=== PATIENT | male | born 1940 | race Caucasian/White ===

== ENCOUNTER 2021-10-14 12:44 | Inpatient (IN) | payer MEDICARE, MEDICAID, SELFPAY ==
[2021-10-14] VITALS (11 sets, daily range): BP systolic 111–146; BP diastolic 40–81; PULSE 45–96; RESP 18–37; TEMP 37.9–39.8; O2SAT 95–99; BMI 25.0
--- NOTE | ~2021-10-14 | XR_ITS ---
EXAMINATION: XR HIP, RIGHT CLINICAL INFORMATION: Atraumatic hip pain. Fever. COMPARISON: Radiographs of the right hip done on 02/12/2016. TECHNIQUE: Single frontal view of the pelvis and 2 views of the right hip were obtained. FINDINGS: Pelvis: The bony alignments are intact. The cortices are intact. Well-corticated thickened bony cortex is noted at the left anterior superior iliac spine, likely represent old posttraumatic change. Right hip: Bony alignments are intact. The cortices are intact. The joint space appear relatively well-maintained. Mild subchondral sclerosis consistent with mild osteoarthrosis is present. No significant change since 2016. XR/XR hip RT w PEL1V IMPRESSION: No radiographic evidence of any acute osseous or articular abnormalities identified. Mild osteoarthrosis of the right hip, unchanged.
--- NOTE | ~2021-10-14 | CT_ITS ---
EXAMINATION: CT ABDOMEN AND PELVIS WITH CONTRAST. CT right hip CLINICAL INFORMATION: Fever of unknown origin COMPARISON: None TECHNIQUE: 5 mm thin axial and reformatted 3 mm thin sagittal and coronal images of abdomen and pelvis were obtained following IV 85 mL Omnipaque 350. Subsequently axial 2 mm thin and reformatted 1 mm thin sagittal coronal images of right hip were obtained. DLP 263 FINDINGS: Abdomen: The lung bases are clear. The heart size is normal. The liver is normal size, shape and density. There are small hypodense 1 cm lesion right hepatic lobe axial image 20/3 and slightly larger hypodense 1.3 cm lesion on axial image 19/3. No enhancing lesion seen. There is no intrahepatic ductal dilatation. The gallbladder is distended with no radiopaque calculi. There is punctate hyperdensity along the medial gallbladder wall question calcification on axial image 23/3.. A 1.4 cm lesion is seen in the spleen rest of the spleen is unremarkable. Visualized pancreas is atrophic with mild fat stranding along the tail of the pancreas extending to the paracolic gutter, suspicious for pancreatitis. Bilateral adrenal glands are symmetric and normal. Both kidneys are normal size, lobulated with mild perinephric stranding. There are bilateral renal cysts. No radiopaque renal calculi or hydronephrosis seen. Abdominal aorta is normal caliber. No abnormal size retroperitoneal lymph nodes seen. There is scattered stool, gas seen throughout mildly prominent:. The small bowel loops are normal caliber. The stomach is nondistended. Appendix is normal caliber. No free air or free fluid seen. Abdominal wall appears unremarkable Imaging through the pelvis reveals mildly enlarged prostate gland extending the base of bladder. There is nondistended urinary bladder with mild bladder wall thickening. No abnormal pelvic or inguinal lymph nodes seen. There is a rectal probe visualized. There are mild degenerative disc changes L5-S1 disc level with moderate ventral spondylosis L2-L3 through L5-S1 disc level. No lytic or sclerotic process seen. Right hip: There is mild reduction bilateral hip joint space with mild subchondral cystic changes along the lateral acetabulum. No bony erosive changes seen. There are small enthesophytes along the greater trochanter. No fracture, dislocation or bony erosive changes. Mild inferior right hip joint spurring is seen. Mild osteopenia. CT/CT abdomen pelvis w con IMPRESSION: Suspect acute pancreatitis tail of the pancreas with minimal peripancreatic fat stranding and likely small fluid collection. Punctate gallbladder wall calcification but no gallstones or wall thickening seen. Bilateral renal cysts. Bilateral hypodense lesions in the liver and spleen, likely small cysts. The liver lesions were seen on previous CT abdomen exam 02/12/2016. There is no acute fracture involving either hip joints on the pelvic bones. Mild osteopenia and subchondral cystic changes along the right acetabulum and lateral femoral head. Degenerative enthesophytes along the greater trochanter and inferior right hip joint. Mild degenerative disc changes L5-S1 disc level with ventral spondylosis lower dorsal and lumbar spine.
--- NOTE | ~2021-10-14 | XR_ITS ---
EXAMINATION: XR CHEST CLINICAL INFORMATION: Fever COMPARISON: Chest 02/19/2017 TECHNIQUE: Frontal view of the chest was obtained. FINDINGS: The lungs are well-expanded and clear of acute process. The heart size and pulmonary vascularity is normal. There is new left central venous port with its tip in proximal SVC. There is mild spondylosis dorsal spine. XR/XR chest 1V IMPRESSION: Clear chest. Left central venous port tip in satisfactory position.
--- NOTE | ~2021-10-14 | CT_ITS ---
EXAMINATION: CT HEAD WITHOUT CONTRAST CLINICAL INFORMATION: Fall, right-sided head swelling COMPARISON: 11/11/2012 TECHNIQUE: Contiguous axial imaging was performed from the skull base to vertex without intravenous administration of contrast. This CT examination was performed using dose optimization techniques as appropriate, variously including the following: *Automated exposure control *Adjustment of mA and/or kV according to patient size (this includes techniques or standardized protocols for targeted exams where dose is matched to indication/reason for exam; i.e. extremities or head) *Use of iterative reconstruction technique DLP: 741 mGy-cm FINDINGS: There is no evidence of acute intracranial hemorrhage or territorial infarction. No abnormal mass effect or midline shift is seen. Mosley to white matter differentiation is well preserved. No extra-axial fluid collections are identified. The ventricles are normal in size. There is mild periventricular white matter hypoattenuation consistent with chronic small vessel ischemic disease. Mild volume loss is noted. Redemonstrated hypoattenuating focus in the left basal ganglia suspicious for chronic lacunar infarct. There is right frontal scalp soft tissue swelling. No acute fracture is seen. The mastoid air cells and visualized portions of the paranasal sinuses are well aerated. CT/CT head/brain wo con IMPRESSION: No acute intracranial findings. Right frontal scalp soft tissue swelling.
--- NOTE | ~2021-10-14 | IR_ITS ---
EXAMINATION: IR REMOVAL OF PORT CATHETER CLINICAL INFORMATION: Diffuse sepsis COMPARISON: None TECHNIQUE: Following explaining removal of portacatheter I procedure, benefits and risk, a written consent was obtained. The area of left upper chest wall was cleaned and draped in the usual sterile manner. 1% lidocaine was injected at the skin incision site. A small skin incision was performed. 1 dissection was performed around the port chamber and the proximal catheter to port attachment. 2 sutures are identified and removed. After blunt dissection of the chamber and the chamber being free, the entire portacatheter was pulled out. The hemorrhage was minimal. 3-0 absorbable sutures were placed into the subcutaneous deep soft tissues and incision was pulled together. A Dermabond was then applied over the incision site and sterile dressing applied postprocedure. Patient tolerated the procedure extremely well. Conscious sedation was utilized during the exam with patient monitored by IR nursing and radiologist for 34 minutes. FINDINGS: A single image was obtained prior to the removal and revealed a tunneled left Port-A-Cath with its tip in mid to distal SVC. Approximately 28 cm long tunneled port catheter was removed. Postprocedure fluoroscopy revealed no residual or remnant Port-A-Cath. IR/IR cvc remove tunnel w prt/purchasing engineer IMPRESSION: Successful removal of left tunneled portacatheter due to diffuse bacteremia. FLUOROSCOPY TIME: 0.4 minutes. DOSE AREA PRODUCT: 58 cGy
--- NOTE | 2021-10-14 13:10 | ECG_ITS ---
Test Reason : FEVER Blood Pressure : / mmHG Vent. Rate : 083 BPM Atrial Rate : 093 BPM P-R Int : 310 ms QRS Dur : 092 ms QT Int : 390 ms P-R-T Axes : 048 -42 041 degrees QTc Int : 458 ms Sinus rhythm with 1st degree A-V block with frequent Premature ventricular complexes Left axis deviation Abnormal ECG No previous ECGs available Referred By: Pat Hernandez Electronically Signed By:Jason Hilton
[2021-10-14] MEDS: Acetaminophen 325 MG TABLET 650 MG PO ×3 (13:41→22:09)
[2021-10-14] MEDS: Acetaminophen 325 MG TABLET PO (13:41)
[2021-10-14] MEDS: 0.9 % Sodium Chloride 1,000 ML 999 ML IV ×2 (13:41→18:47)
[2021-10-14 13:42] LABS: MANUAL DIFF FLAG NO
[2021-10-14 13:44] LABS: Basophils Percent Auto 0.2 % (0-2); Hematocrit 34.2 % (42.0-52.0); Hemoglobin 11.5 g/dl (14.0-18.0); Imm Gran Pct Auto 0.8 % (0.0-0.4); Lymphocytes Absolute Auto 0.3 X10*3/uL (1.2-4.9); Mean Corpuscular HGB Conc 33.6 g/dl (31.0-36.0); Mean Platelet Volume 9.2 fL (9.4-12.4); Monocytes Absolute Auto 0.9 X10*3/uL (0.1-1.2); Monocytes Percent Auto 6.7 % (2-11); Neutrophils Absolute Auto 11.8 x10*3/uL (2.0-8.3); Neutrophils Percent Auto 90.3 % (45-73); Red Blood Count 3.49 X10*6/uL (4.60-5.80); Red Cell Distribution Width 12.9 % (11.0-16.0); SCAN SMEAR FLAG 1; White Blood Count 13.1 X10*3/uL (4.8-10.8)
[2021-10-14 13:45] LABS: Platelet Count 91 X10*3/uL (160-400)
--- NOTE | 2021-10-14 13:45 | ED_ITS ---
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 intake. Noted to be febrile during triage. Denies known fever, chills, CP/SOB, cough, abdominal pain, nausea/vomiting, pedal edema, numbness, tingling, weakness Onset (ago): day(s) Related Data Home Medications Medication Instructions Recorded Confirmed apixaban 2.5 mg tablet (Eliquis) 1 tab PO BID 10/14/21 10/14/21 hydroxyzine HCl 10 mg tablet 10 mg PO QID 10/14/21 10/14/21 Allergies Allergy/AdvReac Type Severity Reaction Status Date / Time No Known Allergies Allergy Verified 10/14/21 12:58 [No Known Allergies*] Review of Systems Review of Systems: Constitutional: +Fever, No Chills, No Fatigue, No Malaise, +anorexia ENT/Mouth: No Hearing loss, No Ear Pain, No sore throat, No Rhinorrhea Eyes: No Eye Pain, No Swelling, No Redness, No Discharge Cardiovascular: No Chest Pain, No SOB, No Edema, No Palpitations Respiratory: No Cough, No Sputum, No Dyspnea Gastrointestinal: No Nausea, No Vomiting, No Diarrhea, No Constipation, No Abdominal pain Genitourinary: No Dysuria, No Urinary Frequency, No Urgency, No Flank Pain, No Urinary Flow Changes Musculoskeletal: + joint pain, No Myalgias, No Joint Swelling Skin: No Skin Lesions, No rash Neuro: No Weakness, No Numbness, No Paresthesias, No Loss of Consciousness, No Dizziness, No Headache Yes all other systems are reviewed and are negative [facility] Past Medical History Attestation statement: The following information was validated with the patient. Medical History (Updated 10/14/21 @ 17:50 by Yunier Crawford MD) Deep vein thrombosis, upper right extremity Throat cancer Family History Family History (Updated 10/14/21 @ 17:49 by Yunier Crawford MD) Father CAD (coronary artery disease) Mother CAD (coronary artery disease) Social History Social History Alcohol intake: never Patient Tobacco Use Status: Never used Tobacco Use of substances other than those prescribed or required for medical reasons: No Advance Directives: No Advance Directives Information Provided: No Physical Exam Vital Signs: Vital Signs: Last Vital Signs Temp 100.8 F H 10/14/21 17:39 Pulse 83 10/14/21 17:39 Resp 18 10/14/21 17:39 BP 133/40 L 10/14/21 17:39 Pulse Ox 98 10/14/21 17:39 BMI result Body Mass Index 25.0 Const: General: cooperative Orientation/consciousness: patient oriented x3 Limitations: no limitations HENMT: Head: Yes normal to inspection Ears: hearing grossly normal bilaterally General nose exam: Normal external nose present Face and sinus: Yes normal facial exam Eyes: General: appearance normal, both eyes and all related structures EOM: EOMs intact bilaterally Neck: Neck: Yes normal visual inspection and Yes no meningeal signs Resp: Effort & Inspection: normal respiratory effort Auscultation: clear to auscultation bilaterally, no rales, no rhonchi and no wheezes Cardio: Rate: regular rate Heart sounds: S1 normal heart sound present and S2 normal heart sound present Peripheral pulses: dorsalis pedis present GI: Inspection: Yes normal to inspection Palpation (GI): Soft to palpation, nontender, no guarding and not rigid Skin: Rashes: no rashes Wounds: no wounds Neuro: General: patient oriented x3, tone normal, moves all extremities, no m eningeal signs and no focal motor deficits Extrem: Other: Right hip without deformity. No erythema, no swelling, no ecchymosis. NV intact distally. Nontender to palpation. Pain elicited with ROM/ROM limited secondary to pain General: Yes normal to inspection Course Course Course Narrative: -1436--leukocytosis of 13.1 (no priors to compare > likely very elevated for patient being immunocompromised and 90% neutrophils). Magnesium low 1.4 > 2g IV repletion ordered. CRP elevated to 27.65 -COVID-19 negative XR chest 1V IMPRESSION: Clear chest. Left central venous port tip in satisfactory position. -1515--UA with multiple RBCs. Not infected XR hip RT w PEL1V IMPRESSION: No radiographic evidence of any acute osseous or articular abnormalities identified. Mild osteoarthrosis of the right hip, unchanged. --patient persistently febrile, ice packs placed -1740--CT abdomen pelvis w con/CT hip RT wo con IMPRESSION: Suspect acute pancreatitis tail of the pancreas with minimal peripancreatic fat stranding and likely small fluid collection. ? Punctate gallbladder wall calcification but no gallstones or wall thickening seen. ? Bilateral renal cysts. ? Bilateral hypodense lesions in the liver and spleen, likely small cysts. The liver lesions were seen on previous CT abdomen exam 02/12/2016. ? There is no acute fracture involving either hip joints on the pelvic bones. Mild osteopenia and subchondral cystic changes along the right acetabulum and lateral femoral head. Degenerative enthesophytes along the greater trochanter and inferior right hip joint. Mild degenerative disc changes L5-S1 disc level with ventral spondylosis lower dorsal and lumbar spine. >> results discussed with patient. 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 intake. On exam febrile 100.3 rectally, tachypneic likely from fever, physical exam as above. Concern for occult fracture vs ?Septic joint/arthritis vs viral syndrome/COVID- 19. Rule out other infectious/metabolic etiologies Plan: EKG, labs, UA, CXR, hip/pelvic X x-ray, lactic/blood cultures, empiric IV antibiotics Medical Records Medical records reviewed: Yes I reviewed the patient's medical records. Lab Data Lab results reviewed: Yes I reviewed the patient's lab results. Result diagrams: 10/14/21 13:36 10/14/21 13:36 Labs: Lab Results 10/14/21 10/14/21 10/14/21 Range/Units 13:36 13:36 13:36 WBC 13.1 H (4.8-10.8) X10*3/uL RBC 3.49 L (4.60-5.80) X10*6/uL Hgb 11.5 L (14.0-18.0) g/dl Hct 34.2 L (42.0-52.0) % MCV 98.0 (80.0-98.0) fL MCH 33.0 (27.0-33.0) pg MCHC 33.6 (31.0-36.0) g/dl RDW 12.9 (11.0-16.0) % Plt Count 91 L (160-400) X10*3/uL MPV 9.2 L (9.4-12.4) fL Immature Gran % (Auto) 0.8 H (0.0-0.4) % Neut % (Auto) 90.3 H (45-73) % Lymph % (Auto) 2.0 L (20-40) % [place] % (Auto) 6.7 (2-11) % Eos % (Auto) 0.0 (0-4) % Baso % (Auto) 0.2 (0-2) % Lymph # (Auto) 0.3 L (1.2-4.9) X10*3/uL [place] # (Auto) 0.9 (0.1-1.2) X10*3/uL Eos # (Auto) 0.0 (0.0-0.4) X10*3/uL Baso # (Auto) 0.0 (0.0-0.2) X10*3/uL Abs Immat Gran (auto) 0.10 H (0.00-0.03) X10*3/uL Absolute Neuts (auto) 11.8 H (2.0-8.3) x10*3/uL Absolute Nucleated RBC 0.000 (0.0-0.012) X10*3/uL Nucleated RBC % (auto) 0.0 (0.0-0.2) /100WBC ESR 51 H (0-15) MM/HR Sodium 138 (135-145) mmol/L Potassium 3.5 (3.3-5.1) mmol/L Chloride 106 (96-108) mmol/L Carbon Dioxide 22 (22-29) mmol/L Anion Gap 14 (12-20) BUN 14 (9-16) mg/dL Creatinine 0.95 (0.5-1.4) mg/dL Estim Creat Clear Calc 62.7 Estimated GFR > 60 Random Glucose 117 H (60-115) mg/dL Lactic Acid (0.5-2.0) mmol/L Calcium 8.1 L (8.4-10.2) mg/dL Magnesium 1.4 L* (1.6-2.6) mg/dL Total Bilirubin 0.9 (0.0-1.0) mg/dL Direct Bilirubin 0.4 (0.0-0.5) mg/dL AST 15 (5-37) U/L ALT 10 (0-40) U/L Alkaline Phosphatase 53 (39-117) U/L C-Reactive Protein 27.65 H (< or = 0.50) mg/dL Total Protein 6.3 L (6.5-8.0) g/dL Albumin 3.3 L (3.5-5.0) g/dL Lipase 8 (8-78) U/L Urine Color Urine Appearance Urine pH (5.0-8.0) Ur Specific [place] (1.005-1.025) Urine Protein (NEG-TRACE) MG/DL Urine Glucose (UA) (NEG) MG/DL Urine Ketones (NEG) MG/DL Urine Blood (NEG) Urine Nitrite (NEG) Ur Leukocyte Esterase (NEG) Urine RBC (0) /HPF Urine WBC (0-4) /HPF Ur Squamous Epith Cells /LPF Urine Bacteria /LPF COVID-19 (OBEY) (Negative) COVID-19 Clin Com 10/14/21 10/14/21 10/14/21 Range/Units 13:36 13:36 14:17 WBC (4.8-10.8) X10*3/uL RBC (4.60-5.80) X10*6/uL Hgb (14.0-18.0) g/dl Hct (42.0-52.0) % MCV (80.0-98.0) fL MCH (27.0-33.0) pg MCHC (31.0-36.0) g/dl RDW (11.0-16.0) % Plt Count (160-400) X10*3/uL MPV (9.4-12.4) fL Immature Gran % (Auto) (0.0-0.4) % Neut % (Auto) (45-73) % Lymph % (Auto) (20-40) % [place] % (Auto) (2-11) % Eos % (Auto) (0-4) % Baso % (Auto) (0-2) % Lymph # (Auto) (1.2-4.9) X10*3/uL [place] # (Auto) (0.1-1.2) X10*3/uL Eos # (Auto) (0.0-0.4) X10*3/uL Baso # (Auto) (0.0-0.2) X10*3/uL Abs Immat Gran (auto) (0.00-0.03) X10*3/uL Absolute Neuts (auto) (2.0-8.3) x10*3/uL Absolute Nucleated RBC (0.0-0.012) X10*3/uL Nucleated RBC % (auto) (0.0-0.2) /100WBC ESR (0-15) MM/HR Sodium (135-145) mmol/L Potassium (3.3-5.1) mmol/L Chloride (96-108) mmol/L Carbon Dioxide (22-29) mmol/L Anion Gap (12-20) BUN (9-16) mg/dL Creatinine (0.5-1.4) mg/dL Estim Creat Clear Calc Estimated GFR Random Glucose (60-115) mg/dL Lactic Acid 0.8 (0.5-2.0) mmol/L Calcium (8.4-10.2) mg/dL Magnesium (1.6-2.6) mg/dL Total Bilirubin (0.0-1.0) mg/dL Direct Bilirubin (0.0-0.5) mg/dL AST (5-37) U/L ALT (0-40) U/L Alkaline Phosphatase (39-117) U/L C-Reactive Protein (< or = 0.50) mg/dL Total Protein (6.5-8.0) g/dL Albumin (3.5-5.0) g/dL Lipase (8-78) U/L Urine Color YELLOW Urine Appearance HAZY Urine pH 5.5 (5.0-8.0) Ur Specific [place] >= 1.030 H (1.005-1.025) Urine Protein 2+ H (NEG-TRACE) MG/DL Urine Glucose (UA) NEG (NEG) MG/DL Urine Ketones 15 (NEG) MG/DL Urine Blood 2+ H (NEG) Urine Nitrite NEG (NEG) Ur Leukocyte Esterase NEG (NEG) Urine RBC 15-29 H (0) /HPF Urine WBC 0-2 (0-4) /HPF Ur Squamous Epith Cells TRACE /LPF Urine Bacteria TRACE /LPF COVID-19 (OBEY) Negative (Negative) COVID-19 Clin Com See Note ECG Data Attestation: I personally reviewed and interpreted this ECG as follows: Prior ECG tracings: not available for review Interpretation: EKG sinus rhythm with first-degree AV block with frequent PVCs. Rate of 83. Left axis deviation. No previous to compare. no stemi Critical Care Time Critical Care Time Critical Care Time: Yes Total Critical Care Time: 50 Attestation: I have personally provided critical care time exclusive of time spent on separately billable procedures. Time includes review of lab data, radiology results, discussion with consultants, and monitoring for potential decompensation. Intervention performed as documented. Discharge Plan Discharge Clinical Impression: Acute pancreatitis, Fever, Acute pain of right hip Patient Disposition: Admitted As Inpatient
[2021-10-14 13:55] LABS: Lactic Acid 0.8 mmol/L (0.5-2.0)
[2021-10-14 14:03] LABS: COVID-19 Test Negative (Negative); IDNOW Serial# 55D5AD1C
--- NOTE | 2021-10-14 14:18 | PHA.MEDREC ---
Pharmacy Consult ? Medication Reconciliation Pharmacy has completed the medication reconciliation. Patient says he talks the eliquis once daily but should be taking it twice daily
[2021-10-14 14:23] LABS: Appearance Urine HAZY; Color Urine YELLOW; Glucose Urine UA NEG (NEG); Leukocyte Esterase Urine NEG (NEG); Nitrite Urine NEG (NEG); PH 5.5 (5.0-8.0); Specific Gravity - Urine >= 1.030 (1.005-1.025); UACC Culture Trigger NO; Urine Blood 2+ (NEG); Urine Ketones 15 MG/DL (NEG); Urine Protein 2+ MG/DL (NEG-TRACE)
[2021-10-14 14:33] LABS: Alanine Aminotransferase 10 U/L (0-40); Albumin Level 3.3 g/dL (3.5-5.0); Alkaline Phosphatase 53 U/L (39-117); Anion Gap 14 (12-20); Aspartate Amino Transferase 15 U/L (5-37); Bilirubin Direct 0.4 mg/dL (0.0-0.5); Bilirubin Total 0.9 mg/dL (0.0-1.0); Blood Urea Nitrogen 14 mg/dL (9-16); C Reactive Protein 27.65 mg/dL (< or = 0.50); Calcium 8.1 mg/dL (8.4-10.2); Carbon Dioxide 22 mmol/L (22-29); Chloride 106 mmol/L (96-108); Creatinine Clr Calc Pharmacy 62.7; Estimated Glomerular Filt Rate > 60; Glucose Random 117 mg/dL (60-115); Lipase 8 U/L (8-78); Magnesium 1.4 mg/dL (1.6-2.6); Potassium 3.5 mmol/L (3.3-5.1); Sodium 138 mmol/L (135-145); Total Protein 6.3 g/dL (6.5-8.0)
[2021-10-14 14:47] LABS: Bacteria Urine TRACE /LPF; Squamous Epithelial Cell Urine TRACE /LPF; WBC Urine 0-2 /HPF (0-4)
[2021-10-14] MEDS: Piperacillin Sodium/Tazobactam 3.375 GM in 0.9 % Sodium Chloride 50 ML IV (15:03)
--- NOTE | 2021-10-14 15:04 | PC.NURSE ---
pt reports feelingb gail. temps are coming down. tolerated CT well. remains tachipnic in bed. skin pwd. fluids continue to infuse through port left chest.
[2021-10-14] MEDS: Magnesium Sulfate/H2O 2 GM/50 ML PIGGYBACK IV (16:02)
--- NOTE | 2021-10-14 16:03 | PC.NURSE ---
axilla packed with ice.
[2021-10-14] MEDS: iohexoL 350 MG/ML 100 ML INFUS..BTL 85 ML IV (16:55)
[2021-10-14 17:34] LABS: Influenza A PCR NEGATIVE (Negative); Influenza B PCR NEGATIVE (Negative); Resp Syncy Virus RNA Qual PCR NEGATIVE (Negative); SARS COV2 PCR INHOUSE NEGATIVE (Negative)
--- NOTE | 2021-10-14 17:40 | PC.NURSE ---
states right hip pain feels better since he's been resting. skin pwd. sr with pvc's on monitor. awaits additional CT results. temps persist around 100.8 despite ice in axilla.
[2021-10-14 17:45] LABS: Erythrocyte Sedimentation Rate 51 MM/HR (0-15)
--- NOTE | 2021-10-14 18:15 | P.HPHOSP_ITS ---
History of Present Illness Date of Service: 10/14/21 Chief Complaint: right hip pain 81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 patient reports pain has been progressing over about 4 days, significantly worsening 2 nights prior to presentation, pain is non radiating, associated with decreased ROM and inability to ambulate. patient denies fevers, but did report chills and need for heavy blankets. he denies chest pain, abd pain, sob, cough, nausea, vomitting, diarrhea. in ED found to be febrile to 103, with elevated CRP, CT hip showed Osteoarthritis, no obvious infection, CT abd with fat stranding around pancreas. cxr unremarkable, UA did not appear infectious. Review of Systems Verdana 4l Review of Systems: Verdana 4d Verdana 4d Constitutional: Denies fever, + Chills Eyes: denies blurry vision ENT: denies sore throat CVS: denies chest pain Respiratory: Denies dyspnea GI: no abdominal pain : denies dysuria MSK: right hip pain Skin: denies rash Neuro: denies specificspecific motor weakness Psych: denies suicidal ideation Endocrine: denies heat/cold intolerance Hematologic: denies easy bleeding Allergy: denies hives [facility] Medical History Deep vein thrombosis, upper right extremity Throat cancer Family History Father CAD (coronary artery disease) Mother CAD (coronary artery disease) Social History (Updated 10/14/21 @ 18:20 by Yunier Crawford MD) Alcohol intake: current Patient Tobacco Use Status: Former Tobacco user Use of substances other than those prescribed or required for medical reasons: No Advance Directives: No Advance Directives Information Provided: No Meds Allergies Allergy/AdvReac Type Severity Reaction Status Date / Time No Known Allergies Allergy Verified 10/14/21 12:58 [No Known Allergies*] Active Medications: Current Medications Apixaban (Apixaban 2.5 Mg Tablet) 2.5 mg PO BID ASHER Hydroxyzine HCl (Hydroxyzine Hcl 10 Mg Tablet) 10 mg PO QID ASHER Sodium Chloride (Ns) 1,000 mls @ 999 mls/hr IV .Q1H1M ASHER Stop: 10/14/21 18:45 Vancomycin HCl 1,000 mg/Vancomycin HCl 750 mg/ Sodium Chloride 535 mls @ 267.5 mls/hr IV ONCE ONE Stop: 10/14/21 20:59 Pharmacy Consult (Consult Rx Perform Med Rec) 1 each MISCELLANE ONCE PRN PRN Reason: Consult order Pharmacy Consult (Consult Rx Vancomycin Dosing) 1 each MISCELLANE DAILY PRN PRN Reason: Consult order Home Medications Medication Instructions Recorded Confirmed Last Taken Type apixaban 2.5 mg 1 tab PO BID 10/14/21 10/14/21 Unknown History tablet (Eliquis) hydroxyzine HCl 10 10 mg PO QID 10/14/21 10/14/21 Unknown History mg tablet Physical Exam Verdana 4l Vital Signs and Narrative: Verdana 4d Verdana 4d Vital Signs: Verdana 4d Verdana 4Bd Last Vital Signs Verdana 4d [place]roid New 4d Chef De Froid New 4d Temp 100.8 F H 10/14/21 17:39 [place] New 4d Pulse 83 10/14/21 17:39 [place] New 4d Resp 18 10/14/21 17:39 BP 133/40 L 10/14/21 17:39 Pulse Ox 98 10/14/21 17:39 BMI result Body Mass Index 25.0 General: no acute distress HEENT: atraumatic, slurred speech (due to throat ca) Neck: normal to visual inspection CVS: S1, S2, irregular Resp: CTA bilateral Chest: non tender GI: soft, non tender, non distended : no CVA tenderness Skin: no rashes Extremities: no edema, decreased ROM in right hip Neuro: Oriented X3, grossly intact Psych: cooperative Results Labs CBC and Chem 7: 10/14/21 13:36 10/14/21 13:36 Labs: Laboratory Results - last 24 hr 10/14/21 10/14/21 10/14/21 13:36 13:36 13:36 MCV 98.0 MCH 33.0 MCHC 33.6 RDW 12.9 Plt Count 91 L MPV 9.2 L Immature Gran % (Auto) 0.8 H Neut % (Auto) 90.3 H Lymph % (Auto) 2.0 L [place] % (Auto) 6.7 Eos % (Auto) 0.0 Baso % (Auto) 0.2 Lymph # (Auto) 0.3 L [place] # (Auto) 0.9 Eos # (Auto) 0.0 Baso # (Auto) 0.0 Abs Immat Gran (auto) 0.10 H Absolute Neuts (auto) 11.8 H Absolute Nucleated RBC 0.000 Nucleated RBC % (auto) 0.0 ESR 51 H Anion Gap 14 Estim Creat Clear Calc 62.7 Estimated GFR > 60 Random Glucose 117 H Lactic Acid Calcium 8.1 L Magnesium 1.4 L* Total Bilirubin 0.9 Direct Bilirubin 0.4 AST 15 ALT 10 Alkaline Phosphatase 53 C-Reactive Protein 27.65 H Total Protein 6.3 L Albumin 3.3 L Lipase 8 Urine Color Urine Appearance Urine pH Ur Specific [place] Urine Protein Urine Glucose (UA) Urine Ketones Urine Blood Urine Nitrite Ur Leukocyte Esterase Urine RBC Urine WBC Ur Squamous Epith Cells Urine Bacteria COVID-19 (OBEY) COVID-19 [employer] Com 10/14/21 10/14/21 10/14/21 13:36 13:36 14:17 MCV MCH MCHC RDW Plt Count MPV Immature Gran % (Auto) Neut % (Auto) Lymph % (Auto) [place] % (Auto) Eos % (Auto) Baso % (Auto) Lymph # (Auto) [place] # (Auto) Eos # (Auto) Baso # (Auto) Abs Immat Gran (auto) Absolute Neuts (auto) Absolute Nucleated RBC Nucleated RBC % (auto) ESR Anion Gap Estim Creat Clear Calc Estimated GFR Random Glucose Lactic Acid 0.8 Calcium Magnesium Total Bilirubin Direct Bilirubin AST ALT Alkaline Phosphatase C-Reactive Protein Total Protein Albumin Lipase Urine Color YELLOW Urine Appearance HAZY Urine pH 5.5 Ur Specific [place] >= 1.030 H Urine Protein 2+ H Urine Glucose (UA) NEG Urine Ketones 15 Urine Blood 2+ H Urine Nitrite NEG Ur Leukocyte Esterase NEG Urine RBC 15-29 H Urine WBC 0-2 Ur Squamous Epith Cells TRACE Urine Bacteria TRACE COVID-19 (OBEY) Negative COVID-19 Clin Com See Note Imaging Radiologist's Impressions: Impressions Chest X-Ray 10/14/21 13:25 IMPRESSION: Clear chest. Left central venous port tip in satisfactory position. Hip/Pelvis X-Ray 10/14/21 14:45 IMPRESSION: No radiographic evidence of any acute osseous or articular abnormalities identified. Mild osteoarthrosis of the right hip, unchanged. Abdomen/Pelvis CT 10/14/21 17:01 IMPRESSION: Suspect acute pancreatitis tail of the pancreas with minimal peripancreatic fat stranding and likely small fluid collection. Punctate gallbladder wall calcification but no gallstones or wall thickening seen. Bilateral renal cysts. Bilateral hypodense lesions in the liver and spleen, likely small cysts. The liver lesions were seen on previous CT abdomen exam 02/12/2016. There is no acute fracture involving either hip joints on the pelvic bones. Mild osteopenia and subchondral cystic changes along the right acetabulum and lateral femoral head. Degenerative enthesophytes along the greater trochanter and inferior right hip joint. Mild degenerative disc changes L5-S1 disc level with ventral spondylosis lower dorsal and lumbar spine. Hip CT 10/14/21 17:02 IMPRESSION: Suspect acute pancreatitis tail of the pancreas with minimal peripancreatic fat stranding and likely small fluid collection. Punctate gallbladder wall calcification but no gallstones or wall thickening seen. Bilateral renal cysts. Bilateral hypodense lesions in the liver and spleen, likely small cysts. The liver lesions were seen on previous CT abdomen exam 02/12/2016. There is no acute fracture involving either hip joints on the pelvic bones. Mild osteopenia and subchondral cystic changes along the right acetabulum and lateral femoral head. Degenerative enthesophytes along the greater trochanter and inferior right hip joint. Mild degenerative disc changes L5-S1 disc level with ventral spondylosis lower dorsal and lumbar spine. Assessment and Plan (1) Fever: Status: Acute Plan 81M presented with right hip pain, found to have SIRS, pancreatic inflammation on CT SIRS unclear in infectious empiric vanc, zosyn, follow up cultures, ID eval right hip pain exacerbation of OA in sepsis, joint itself does not appear septic at this time pain control acute pancreatitis asymptomatic unclear etiology monitor history of DVT of RUE unclear why patient is on low dose eliquis will continue for now DNR/DNI Quality Stroke Does the patient have a stroke diagnosis?: No VTE Prior VTE?: Yes VTE Risk Level:: Medical - moderate - high VTE Device Contraindication: Treatment Not Indicated VTE Drug Contraindication: N/A - Med Ordered
--- NOTE | 2021-10-14 18:28 | PHA.PROG ---
Admission Date/Time: October 14, 2021 18:14 Indication: Septic - unknown etiology Weight in k.2 kg Adjusted body weight in K.66 kg [place] body weight in K.3 kg Obesity Dosing Indication % IBW: 107% Serum Creatinine - Last 168 Hours 10/14/21 13:36 Creatinine 0.95 Estimated CrCl and GFR - Last 168 Hours 10/14/21 13:36 Estim Creat Clear Calc 62.7 Estimated GFR > 60 Vancomycin Loading Dose: 1750 mg Current Vancomycin Dosing Regimen: 1250 mg Q24H Date and Time for next Vancomycin Level to be drawn: 10/17 @ 1700 Pharmacist Comments on Vancomycin Plan: Loading dose vancomycin 1750 mg (21.5 mg/kg) to be given 10/14 @ 1900. Maintenance dose vancomycin 1250 mg Q24H to be given 10/15 @ 1900. Expected AUC 437 with a trough of 12.7. Random to be drawn prior to 4th dose. Patient may require 1500 mg Q24H depending on clearance Pharmacy will monitor renal function daily. Payton Whiteside, AshleyD Vancomycin dosing will take advantage of [employer] / [employer] as a clinical decision support tool that uses Bayesian modeling to calculate individual patient's pharmacokinetic parameters and forecast the patient's drug concentration time course with the target goal AUC 24 range of 400 - 600 mg/L/hr.
[2021-10-14] MEDS: vancomycin HCL 1,000 MG, vancomycin HCL 750 MG in 0.9 % Sodium Chloride 500 ML 267.5 MG IV (18:49)
[2021-10-14] MEDS: Apixaban 2.5 MG TABLET PO (21:16)
[2021-10-14] MEDS: hydrOXYzine HCL 10 MG TABLET PO (21:16)
[2021-10-15] VITALS (10 sets, daily range): BP systolic 118–148; BP diastolic 47–82; PULSE 43–101; RESP 16–19; TEMP 36.9–38.8; O2SAT 96–98
--- NOTE | 2021-10-15 04:29 | PC.NURSE ---
I assumed care of this pt at 1900. Since that time the pt has beenr esting in bed, alert and oriented x 3, calm and cooperative. He makes eye contact with RN, is able to make his needs known to staff. Afib vs ATach on bedside monitor - rate 39bpm (occasionally) - 60bpm (more frequently). During the night the pt spiked a temperature as high as 103.6 At that time I was initially unable to administer Tylenol because it was too close to the previous administration, however with the verbal request of MD De León ( may be administered early ) I was able to give 650mg PO and his temp has decreased to 99 (rectally with continuous rectal probe). He takes PO fluids without difficulty. He denies pain when I ask, specifically when I ask if his R hip hurts ( not right now ). We will continue to monitor Raad.
[2021-10-15 07:02] LABS: Hematocrit 36.9 % (42.0-52.0); Mean Corpuscular HGB Conc 32.5 g/dl (31.0-36.0); Mean Corpuscular Hemoglobin 32.3 pg (27.0-33.0); Mean Corpuscular Volume 99.2 fL (80.0-98.0); Mean Platelet Volume 10.5 fL (9.4-12.4); Red Blood Count 3.72 X10*6/uL (4.60-5.80); White Blood Count 7.1 X10*3/uL (4.8-10.8)
[2021-10-15 07:05] LABS: Platelet Count 93 X10*3/uL (160-400)
[2021-10-15 07:33] LABS: Anion Gap 12 (12-20); Blood Urea Nitrogen 14 mg/dL (9-16); Calcium 7.9 mg/dL (8.4-10.2); Carbon Dioxide 23 mmol/L (22-29); Chloride 107 mmol/L (96-108); Creatinine Clr Calc Pharmacy 66.9; Estimated Glomerular Filt Rate > 60; Glucose Fasting 107 mg/dL (60-99); Magnesium 1.9 mg/dL (1.6-2.6); Potassium 3.8 mmol/L (3.3-5.1); Sodium 138 mmol/L (135-145)
--- NOTE | 2021-10-15 08:12 | P.CONOP_ITS ---
History of Present Illness [facility] Consult date: 10/15/21 Chief complaint: Sirs Narrative: Mr. Cervantes is an 81 yo male who presents to the emergency department For increased right hip pain for the past 4 days. He reports that for the past month and a half he has had right hip pain due to osteoarthritis. He reports that he has been in bed recently due to general malaise and reports that his right hip pain has been exacerbated to the point where he was having difficulty with ambulation due to pain. 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 Review of Systems Verdana 4l Review of Systems: Yes all other systems are reviewed and Verdana 4d are negative [facility] Past Medical History Medical History Deep vein thrombosis, upper right extremity Throat cancer Family History Family History Father CAD (coronary artery disease) Mother CAD (coronary artery disease) Social History Social History (Updated 10/14/21 @ 18:20 by Yunier Crawford MD) Alcohol intake: former Patient Tobacco Use Status: Former Tobacco user Use of substances other than those prescribed or required for medical reasons: No Advance Directives: No Advance Directives Information Provided: No Meds Allergies Allergy/AdvReac Type Severity Reaction Status Date / Time No Known Allergies Allergy Verified 10/14/21 12:58 [No Known Allergies*] Active Medications: Current Medications Acetaminophen (Acetaminophen 325 Mg Tablet) 650 mg PO Q6H PRN PRN Reason: Pain, Mild (Pain Scale 1-3) Last Admin: 10/14/21 22:09 Dose: 650 mg Documented by: Apixaban (Apixaban 2.5 Mg Tablet) 2.5 mg PO BID [facility] Last Admin: 10/14/21 21:16 Dose: 2.5 mg Documented by: Cyanocobalamin (Cyanocobalamin (Vitamin B-12) 1,000 Mcg Tablet) 1,000 mcg PO DAILY [facility] Hydroxyzine HCl (Hydroxyzine Hcl 10 Mg Tablet) 10 mg PO QID [facility] Last Admin: 10/14/21 21:16 Dose: 10 mg Documented by: Piperacillin Sod/Tazobactam (Sod 3.375 gm/ Sodium Chloride) 50 mls @ 100 mls/hr IV Q6H [facility] Vancomycin HCl 1,250 mg/ (Sodium Chloride) 250 mls @ 166.667 mls/hr IV Q24H [facility] Morphine Sulfate (Morphine Sulfate 2 Mg/Ml Cartridge) 2 mg IVPUSH Q3H PRN; Protocol PRN Reason: moderate pain Pharmacy Consult (Consult Rx Perform Med Rec) 1 each MISCELLANE ONCE PRN PRN Reason: Consult order Pharmacy Consult (Consult Rx Vancomycin Dosing) 1 each MISCELLANE DAILY PRN PRN Reason: Consult order Pharmacy Consult (Consult Rx Vancomycin Dosing) 1 each MISCELLANE DAILY PRN PRN Reason: Consult order Sodium Chloride (0.9 % Sodium Chloride Flush 3 Ml Syringe) 3 ml IVFLUSH QSHIFT [facility] Last Admin: 10/15/21 00:52 Dose: Not Given Documented by: Home Medications Medication Instructions Recorded Confirmed Last Taken Type apixaban 2.5 mg 1 tab PO BID 10/14/21 10/14/21 Unknown History tablet (Eliquis) cyanocobalamin 1,000 mcg PO 10/14/21 10/14/21 Unknown History (vitamin B-12) DAILY 1,000 mcg tablet hydroxyzine HCl 10 mg PO QID 10/14/21 10/14/21 Unknown History 10 mg tablet riboflavin 100 mg PO DAILY 10/14/21 10/14/21 Unknown History (vitamin B2) 100 mg tablet tramadol 50 mg 50 mg PO TID PRN 10/14/21 10/14/21 Unknown History tablet Physical Exam Verdana 4l Vital Signs: Verdana 4d Verdana 4d Vital Signs: Verdana 4d Verdana 4Bd Last Vital Signs Verdana 4d Outreach Team Member New 4d Outreach Team Member New 4d Temp 98.7 F 10/15/21 04:01 Outreach Team Member New 4d Pulse 51 10/15/21 04:01 Outreach Team Member New 4d Resp 16 10/15/21 04:01 BP 142/58 H 10/15/21 04:01 Pulse Ox 96 10/15/21 04:01 BMI result Body Mass Index 25.0 Const: General: cooperative, healthy appearing and no acute distress Resp: Effort & Inspection: normal respiratory effort and able to speak in complete sentences Cardio: Rate: regular rate Peripheral pulses: Peripheral pulses 2+ throughout GI: Palpation (GI): Soft to palpation Skin: Lesions: no lesions Rashes: no rashes Extrem: Other: Right hip normal to inspection. No ecchymosis, redness or edema. No obvious deformity. Nontender to palpation. Patient has mild pain with assisted right hip range of motion. Patient is able to demonstrate ac is ative hip flexion and extension with mild pain. Sensation intact. Pedal pulse intact. Results Labs Result Diagrams: 10/15/21 06:29 10/15/21 06:29 Labs: Abnormal lab results 10/14/21 10/14/21 10/14/21 Range/Units 13:36 13:36 13:36 WBC 13.1 H (4.8-10.8) X10*3/uL RBC 3.49 L (4.60-5.80) X10*6/uL Hgb 11.5 L (14.0-18.0) g/dl Hct 34.2 L (42.0-52.0) % MCV (80.0-98.0) fL Plt Count 91 L (160-400) X10*3/uL MPV 9.2 L (9.4-12.4) fL Immature Gran % (Auto) 0.8 H (0.0-0.4) % Neut % (Auto) 90.3 H (45-73) % Lymph % (Auto) 2.0 L (20-40) % Lymph # (Auto) 0.3 L (1.2-4.9) X10*3/uL Abs Immat Gran (auto) 0.10 H (0.00-0.03) X10*3/uL Absolute Neuts (auto) 11.8 H (2.0-8.3) x10*3/uL ESR 51 H (0-15) MM/HR Random Glucose 117 H (60-115) mg/dL Fasting Glucose (60-99) mg/dL Calcium 8.1 L (8.4-10.2) mg/dL Magnesium 1.4 L* (1.6-2.6) mg/dL C-Reactive Protein 27.65 H (< or = 0.50) mg/dL Total Protein 6.3 L (6.5-8.0) g/dL Albumin 3.3 L (3.5-5.0) g/dL Ur Specific [place] (1.005-1.025) Urine Protein (NEG-TRACE) MG/DL Urine Blood (NEG) Urine RBC (0) /HPF 10/14/21 10/15/21 10/15/21 Range/Units 14:17 06:29 06:29 WBC (4.8-10.8) X10*3/uL RBC 3.72 L (4.60-5.80) X10*6/uL Hgb 12.0 L (14.0-18.0) g/dl Hct 36.9 L (42.0-52.0) % MCV 99.2 H (80.0-98.0) fL Plt Count 93 L (160-400) X10*3/uL MPV (9.4-12.4) fL Immature Gran % (Auto) (0.0-0.4) % Neut % (Auto) (45-73) % Lymph % (Auto) (20-40) % Lymph # (Auto) (1.2-4.9) X10*3/uL Abs Immat Gran (auto) (0.00-0.03) X10*3/uL Absolute Neuts (auto) (2.0-8.3) x10*3/uL ESR (0-15) MM/HR Random Glucose (60-115) mg/dL Fasting Glucose 107 H (60-99) mg/dL Calcium 7.9 L (8.4-10.2) mg/dL Magnesium (1.6-2.6) mg/dL C-Reactive Protein (< or = 0.50) mg/dL Total Protein (6.5-8.0) g/dL Albumin (3.5-5.0) g/dL Ur Specific [place] >= 1.030 H (1.005-1.025) Urine Protein 2+ H (NEG-TRACE) MG/DL Urine Blood 2+ H (NEG) Urine RBC 15-29 H (0) /HPF H & H 10/14/21 10/15/21 Range/Units 13:36 06:29 Hgb 11.5 L 12.0 L (14.0-18.0) g/dl Hct 34.2 L 36.9 L (42.0-52.0) % All other labs normal. Assessment and Plan (1) Acute pain of right hip: Status: Acute (2) Osteoarthritis of right hip: Status: Acute Mr. Cervantes is an 81-year-old male who presents to the emergency department for acute right hip pain for the past 4 days. Patient however reports that he has had hip pain for the past month and a half but his pain has been exacerbated by laying in bed. X-rays obtained in the emergency department of the right hip reveal osteoarthritis. CT of the right hip obtained in the emergency department again right hip osteoarthritis. Imaging is negative for any acute fracture, dislocation, or septic joint. Patient is able to demonstrate hip range of motion with mild pain. Patient may follow-up in the outpatient setting for her right hip osteoarthritis follow-up. There is no further orthopedic intervention needed at this time. Procedures Date of Service Date of Service: 10/15/21
[2021-10-15] MEDS: hydrOXYzine HCL 10 MG TABLET PO ×4 (08:35→20:59)
[2021-10-15] MEDS: Acetaminophen 325 MG TABLET 650 MG PO (08:35)
[2021-10-15] MEDS: Apixaban 2.5 MG TABLET PO ×2 (08:35→20:59)
[2021-10-15] MEDS: Cyanocobalamin (Vitamin B-12) 1,000 MCG TABLET 1000 MCG PO (08:36)
[2021-10-15] MEDS: 0.9 % Sodium Chloride Flush 3 ML SYRINGE IVFLUSH (08:37)
--- NOTE | 2021-10-15 08:42 | HE.PHANOTE ---
Vancomycin Dosing Addendum Patient reviewed, continue with same dose. Next trough 10/17/21 @1700.
[2021-10-15] MEDS: Piperacillin Sodium/Tazobactam 3.375 GM in 0.9 % Sodium Chloride 50 ML IV ×3 (09:05→20:59)
--- NOTE | 2021-10-15 10:16 | P.PNIM_ITS ---
Subjective Subjective Date of Service: 10/15/21 Interval History: cc: right hip pain intervla history: right hip pain improved Cardiovascular Cardiovascular: Reports no additional cardiovascular complaints Respiratory Respiratory: Reports no additional respiratory complaints Physical Exam Verdana 4l Vital Signs: Verdana 4d Verdana 4d Vital Signs: Verdana 4d Verdana 4Bd Last Vital Signs Verdana 4d Ag Service Manager New 4d Ag Service Manager New 4d Temp 100.8 F H 10/15/21 09:59 Ag Service Manager New 4d Pulse 65 10/15/21 09:59 Ag Service Manager New 4d Resp 19 10/15/21 09:59 BP 132/81 10/15/21 09:59 Pulse Ox 97 10/15/21 09:59 BMI result Body Mass Index 25.0 General: AO X 3, no acute distress Resp: CTA bilateral, no accessory muscles used CVS: S1,S2,irregular GI: soft, non tender, non distended Neuro: motor grossly intact, alert Psych: appropriate affect, appropriate insight Objective Data Active Medications Acetaminophen (Acetaminophen 325 Mg Tablet) 650 mg PO Q6H PRN PRN Reason: Pain, Mild (Pain Scale 1-3) Last Admin: 10/15/21 08:35 Dose: 650 mg Documented by: TOY Apixaban (Apixaban 2.5 Mg Tablet) 2.5 mg PO BID [facility] Last Admin: 10/15/21 08:35 Dose: 2.5 mg Documented by: TOY Cyanocobalamin (Cyanocobalamin (Vitamin B-12) 1,000 Mcg Tablet) 1,000 mcg PO DAILY [facility] Last Admin: 10/15/21 08:36 Dose: 1,000 mcg Documented by: TOY Hydroxyzine HCl (Hydroxyzine Hcl 10 Mg Tablet) 10 mg PO QID [facility] Last Admin: 10/15/21 08:35 Dose: 10 mg Documented by: TOY Vancomycin HCl 1,250 mg/ (Sodium Chloride) 250 mls @ 166.667 mls/hr IV Q24H [facility] Piperacillin Sod/Tazobactam (Sod 3.375 gm/ Sodium Chloride) 50 mls @ 100 mls/hr IV Q6H [facility] Last Admin: 10/15/21 09:05 Dose: 100 mls/hr Documented by: TOY Morphine Sulfate (Morphine Sulfate 2 Mg/Ml Cartridge) 2 mg IVPUSH Q3H PRN; Protocol PRN Reason: moderate pain Pharmacy Consult (Consult Rx Perform Med Rec) 1 each MISCELLANE ONCE PRN PRN Reason: Consult order Pharmacy Consult (Consult Rx Vancomycin Dosing) 1 each MISCELLANE DAILY PRN PRN Reason: Consult order Sodium Chloride (0.9 % Sodium Chloride Flush 3 Ml Syringe) 3 ml IVFLUSH QSHIFT [facility] Last Admin: 10/15/21 08:37 Dose: 3 ml Documented by: TOY Labs CBC & Chem 7: 10/15/21 06:29 10/15/21 06:29 Labs: Laboratory Results - last 24 hr 10/14/21 10/14/21 10/14/21 13:36 13:36 13:36 MCV 98.0 MCH 33.0 MCHC 33.6 RDW 12.9 Plt Count 91 L MPV 9.2 L Immature Gran % (Auto) 0.8 H Neut % (Auto) 90.3 H Lymph % (Auto) 2.0 L Door % (Auto) 6.7 Eos % (Auto) 0.0 Baso % (Auto) 0.2 Lymph # (Auto) 0.3 L Door # (Auto) 0.9 Eos # (Auto) 0.0 Baso # (Auto) 0.0 Abs Immat Gran (auto) 0.10 H Absolute Neuts (auto) 11.8 H Absolute Nucleated RBC 0.000 Nucleated RBC % (auto) 0.0 ESR 51 H Anion Gap 14 Estim Creat Clear Calc 62.7 Estimated GFR > 60 Random Glucose 117 H Fasting Glucose Lactic Acid Calcium 8.1 L Magnesium 1.4 L* Total Bilirubin 0.9 Direct Bilirubin 0.4 AST 15 ALT 10 Alkaline Phosphatase 53 C-Reactive Protein 27.65 H Total Protein 6.3 L Albumin 3.3 L Lipase 8 Urine Color Urine Appearance Urine pH Ur Specific [place] Urine Protein Urine Glucose (UA) Urine Ketones Urine Blood Urine Nitrite Ur Leukocyte Esterase Urine RBC Urine WBC Ur Squamous Epith Cells Urine Bacteria COVID-19 ([facility]) COVID-19 Clin Com Influenza Type A (PCR) Influenza Type B (PCR) RSV RNA Qual (PCR) SARS-CoV-2 RNA (RT-PCR) 10/14/21 10/14/21 10/14/21 13:36 13:36 14:17 MCV MCH MCHC RDW Plt Count MPV Immature Gran % (Auto) Neut % (Auto) Lymph % (Auto) Door % (Auto) Eos % (Auto) Baso % (Auto) Lymph # (Auto) Door # (Auto) Eos # (Auto) Baso # (Auto) Abs Immat Gran (auto) Absolute Neuts (auto) Absolute Nucleated RBC Nucleated RBC % (auto) ESR Anion Gap Estim Creat Clear Calc Estimated GFR Random Glucose Fasting Glucose Lactic Acid 0.8 Calcium Magnesium Total Bilirubin Direct Bilirubin AST ALT Alkaline Phosphatase C-Reactive Protein Total Protein Albumin Lipase Urine Color YELLOW Urine Appearance HAZY Urine pH 5.5 Ur Specific [place] >= 1.030 H Urine Protein 2+ H Urine Glucose (UA) NEG Urine Ketones 15 Urine Blood 2+ H Urine Nitrite NEG Ur Leukocyte Esterase NEG Urine RBC 15-29 H Urine WBC 0-2 Ur Squamous Epith Cells TRACE Urine Bacteria TRACE COVID-19 ([facility]) Negative COVID-19 Clin Com See Note Influenza Type A (PCR) Influenza Type B (PCR) RSV RNA Qual (PCR) SARS-CoV-2 RNA (RT-PCR) 10/14/21 10/15/21 10/15/21 16:52 06:29 06:29 MCV 99.2 H MCH 32.3 MCHC 32.5 RDW 13.0 Plt Count 93 L MPV 10.5 Immature Gran % (Auto) Neut % (Auto) Lymph % (Auto) Door % (Auto) Eos % (Auto) Baso % (Auto) Lymph # (Auto) Door # (Auto) Eos # (Auto) Baso # (Auto) Abs Immat Gran (auto) Absolute Neuts (auto) Absolute Nucleated RBC 0.000 Nucleated RBC % (auto) 0.0 ESR Anion Gap 12 Estim Creat Clear Calc 66.9 Estimated GFR > 60 Random Glucose Fasting Glucose 107 H Lactic Acid Calcium 7.9 L Magnesium 1.9 Total Bilirubin Direct Bilirubin AST ALT Alkaline Phosphatase C-Reactive Protein Total Protein Albumin Lipase Urine Color Urine Appearance Urine pH Ur Specific [place] Urine Protein Urine Glucose (UA) Urine Ketones Urine Blood Urine Nitrite Ur Leukocyte Esterase Urine RBC Urine WBC Ur Squamous Epith Cells Urine Bacteria COVID-19 ([facility]) COVID-19 Clin Com Influenza Type A (PCR) NEGATIVE Influenza Type B (PCR) NEGATIVE RSV RNA Qual (PCR) NEGATIVE SARS-CoV-2 RNA (RT-PCR) NEGATIVE Microbiology Microbiology Results: Microbiology 10/14/21 14:56 Blood Culture - Preliminary Blood - Venous Prelim: GPC Gram Stain only 10/14/21 13:51 Blood Culture - Preliminary Blood - Venous Prelim: GPC Gram Stain only Assessment and Plan (1) Fever: Status: Acute Plan 81M presented with right hip pain, found to have SIRS, pancreatic inflammation on CT sepsis due to GPC bacteremia empiric vanc, zosyn, follow up cultures, ID eval ortho appreciated, septic hip unlikely possible port infection, though site looks clean acute pancreatitis asymptomatic unclear etiology monitor history of DVT of RUE unclear why patient is on low dose eliquis will continue for now DNR/DNI Quality Stroke Does the patient have a stroke diagnosis?: No VTE Prior VTE?: Yes VTE Risk Level:: Medical - moderate - high VTE Device Contraindication: Treatment Not Indicated VTE Drug Contraindication: N/A - Med Ordered
--- NOTE | 2021-10-15 10:45 | P.CDIC_ITS ---
CDI Concurrent Query Documentation Clarification: PHYSICIAN'S DOCUMENTATION REQUEST Date of Query: 10/15/21 1046 Patient Name: Raad Cervantes Admit Date: 10/14/21 Dear Doctor, A review of the medical record indicates additional documentation may be needed. Please review below and update the documentation accordingly. Clinical Indicators: SIRS is documented in the medical record. Other clinical indicators include: Verdana 4Bd Risk Factors/Clinical Indicators/Treatments Verdana 4d WBC 13.1 Temperature 100.8 Per H&P: SIRS, right hip pain, exacerbation of OA in sepsis, joint itself does not appear septic Per MD progress note 10/15/21: 81M presented with right hip pain, found to have SIRS, pancreatic inflammation on CT sepsis due to GPC bacteremia empiric vanc, zosyn, follow up cultures, ID eval ortho appreciated, septic hip unlikely possible port infectioninfection, though site looks clean Please clarify which of the following most accurately describes the above abnormalities: * Sepsis * Systemic manifestations of infection, with 2 or more SIRS criteria which include: -Fever > 100.4F or hypothermia < 96.8 F -Leukocytosis - WBC > 12,000 or leukopenia, WBC < 4,000 or > 10% bands -Tachycardia > 90 beats/minute -Tachypnea - RR > 20 breaths/minute or PaCO2 < 32mmHg (Source: Merck Manual 2013) * Indicate the knows or suspected organism * Indicate the known or suspected underlying infection, such as UTI, pneumonia, or cellulitis * Indicate if a suspected bacteria infection of unknown source * Indicate if associated with an implanted device such as a F/C, PICC line, orthopedic hardware, etc * Indicate if there is associated organ dysfunction, such as renal or respiratory failure * SIRS due to a non-infectious source * Indicate the known or suspected etiology * Indicate if there is associated organ dysfunction, such as renal or respiratory failure * Other * Unable to determine Use of terms such as suspected, likely, concern for, or probable (associated with a specific diagnosis that is being evaluated, monitored, or treated as if it exists) are acceptable and can be coded in the inpatient setting, when documented at the time of discharge. Thank you, Gricelda Valentin RN Extension: [phone] Please use your independent medical judgment in providing your response. THIS QUERY IS PART OF THE PERMANENT MEDICAL RECORD Provider Response: Other Other Diagnosis: please see documentation
--- NOTE | 2021-10-15 13:08 | PC.NURSE ---
pt declined lunch and also did not eat breakfast, states he doesn't have an appetite, alert, no complaints
--- NOTE | 2021-10-15 15:15 | MHC.CM.PN ---
Met with pt to review d/c plans: pt states he resides with his long time significant other, Heidy and has no services at this time. He states he uses a cane, drives, is independent with all ADL's and follows with his PCP, Dr. Harris at [facility] [place]. Pt declined completion of HCP but stated it's Heidy, I don't need a form Pt has been Covid vaxed x 3. IMM in chart D/C Plan is for a return to home without services; pt unsure of transportation at this time but feels he may be able to call someone if needed. Pt resides in which is within the [facility] [place] parameters. CM to follow.
--- NOTE | 2021-10-15 16:00 | W.PM.IDCN ---
History of Present Illness Data of Consult Service Date: 10/15/21 Requesting physician: Yunier Crawford Primary Care Provider: Unknown Physician HPI Reason for consult: bacteremia He presents with right hip pain for four days and trouble walking,especially everting hip. He has fever as well with no chills. He has throat cancer and has port in place He has no redness around port Blood cultures gram positive cocci x2. 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 Staphylococcus aureus bacteremia Throat cancer Family History Family History Father CAD (coronary artery disease) Mother CAD (coronary artery disease) Family history: reviewed and not pertinent Social History Social History Household Members: Significant Other Housing: Apartment Do you presently have visiting nurse or other home services: No Alcohol intake: former Patient Tobacco Use Status: Former Tobacco user Advance Directives: No Advance Directives Information Provided: No service: Yes Current occupational status: disabled Meds Allergies Allergy/AdvReac Type Severity Reaction Status Date / Time No Known Allergies Allergy Verified 10/14/21 12:58 [No Known Allergies*] Active Medications: Current Medications Acetaminophen (Acetaminophen 325 Mg Tablet) 650 mg PO Q6H PRN PRN Reason: Pain, Mild (Pain Scale 1-3) Last Admin: 10/15/21 08:35 Dose: 650 mg Documented by: Apixaban (Apixaban 2.5 Mg Tablet) 2.5 mg PO BID [facility] Last Admin: 10/15/21 08:35 Dose: 2.5 mg Documented by: Cyanocobalamin (Cyanocobalamin (Vitamin B-12) 1,000 Mcg Tablet) 1,000 mcg PO DAILY [facility] Last Admin: 10/15/21 08:36 Dose: 1,000 mcg Documented by: Hydroxyzine HCl (Hydroxyzine Hcl 10 Mg Tablet) 10 mg PO QID [facility] Last Admin: 10/15/21 14:22 Dose: 10 mg Documented by: Vancomycin HCl 1,250 mg/ (Sodium Chloride) 250 mls @ 166.667 mls/hr IV Q24H [facility] Piperacillin Sod/Tazobactam (Sod 3.375 gm/ Sodium Chloride) 50 mls @ 100 mls/hr IV Q6H [facility] Last Admin: 10/15/21 14:22 Dose: 100 mls/hr Documented by: Morphine Sulfate (Morphine Sulfate 2 Mg/Ml Cartridge) 2 mg IVPUSH Q3H PRN; Protocol PRN Reason: moderate pain Pharmacy Consult (Consult Rx Perform Med Rec) 1 each MISCELLANE ONCE PRN PRN Reason: Consult order Pharmacy Consult (Consult Rx Vancomycin Dosing) 1 each MISCELLANE DAILY PRN PRN Reason: Consult order Sodium Chloride (0.9 % Sodium Chloride Flush 3 Ml Syringe) 3 ml IVFLUSH QSHIFT [facility] Last Admin: 10/15/21 08:37 Dose: 3 ml Documented by: Home Medications Medication Instructions Recorded Confirmed Last Taken Type apixaban 2.5 mg tablet (Eliquis) 1 tab PO BID 10/14/21 10/14/21 Unknown History cyanocobalamin (vitamin B-12) 1,000 mcg PO DAILY 10/14/21 10/14/21 Unknown History 1,000 mcg tablet hydroxyzine HCl 10 mg tablet 10 mg PO QID 10/14/21 10/14/21 Unknown History riboflavin (vitamin B2) 100 mg 100 mg PO DAILY 10/14/21 10/14/21 Unknown History tablet tramadol 50 mg tablet 50 mg PO TID PRN 10/14/21 10/14/21 Unknown History Physical Exam Vital Signs: Vital Signs: Last Vital Signs Temp 99.9 F 10/15/21 12:15 Pulse 50 10/15/21 12:15 Resp 19 10/15/21 12:15 BP 123/82 10/15/21 12:15 Pulse Ox 97 10/15/21 12:15 BMI result Body Mass Index 25.0 Const: General: cooperative HENMT: Head: Yes normal to inspection Mouth: Normal oral and palatal mucosa present Resp: Effort & Inspection: normal respiratory effort Cardio: Rate: regular rate Rhythm: regular rhythm GI: Palpation (GI): Soft to palpation and nontender Skin: General skin exam: no rashes or lesions noted Extrem: Other: pain everting right hip no erythema Results Labs CBC & Chem 7: 10/20/21 05:14 10/21/21 05:34 Labs: Short CBC 10/15/21 Range/Units 06:29 WBC 7.1 (4.8-10.8) X10*3/uL Hgb 12.0 L (14.0-18.0) g/dl Hct 36.9 L (42.0-52.0) % Plt Count 93 L (160-400) X10*3/uL BMP 10/15/21 06:29 Sodium 138 Potassium 3.8 Chloride 107 Carbon Dioxide 23 BUN 14 Creatinine 0.89 Calcium 7.9 L Microbiology Microbiology Results: Microbiology 10/14/21 14:56 Blood - Venous Blood Culture - Preliminary Prelim: GPC Gram Stain only 10/14/21 13:51 Blood - Venous Blood Culture - Preliminary Prelim: GPC Gram Stain only Assessment and Plan (1) Osteoarthritis of right hip: He likely has septic hip with bacteremia Line doesnt appear infected (2) Fever: Status: Resolved (3) Bacteremia: Status: Deleted would continue Vancomycin and await cultures and likely 4 weeks IV antibiotics Check echo If blood cultures on repeat 48 hour blood cultures dont clear would remove port Orthopedics reconsult if pain doesnt improve ?aspirate
[2021-10-15] MEDS: vancomycin HCL 1,250 MG in 0.9 % Sodium Chloride 250 ML 166.67 MG IV (19:20)
[2021-10-16] MEDS: Morphine Sulfate 2 MG/ML CARTRIDGE IVPUSH ×3 (00:48→08:56)
[2021-10-16 01:51] VITALS: RESP 18
[2021-10-16] MEDS: Piperacillin Sodium/Tazobactam 3.375 GM in 0.9 % Sodium Chloride 50 ML IV ×4 (02:55→20:29)
[2021-10-16 05:43] LABS: Hematocrit 33.6 % (42.0-52.0); Hemoglobin 11.1 g/dl (14.0-18.0); Mean Corpuscular Hemoglobin 32.4 pg (27.0-33.0); Mean Platelet Volume 10.1 fL (9.4-12.4); Platelet Count 100 X10*3/uL (160-400); Red Blood Count 3.43 X10*6/uL (4.60-5.80); Red Cell Distribution Width 12.8 % (11.0-16.0); White Blood Count 5.5 X10*3/uL (4.8-10.8)
[2021-10-16 05:57] LABS: Anion Gap 13 (12-20); Blood Urea Nitrogen 14 mg/dL (9-16); Calcium 7.9 mg/dL (8.4-10.2); Carbon Dioxide 20 mmol/L (22-29); Chloride 108 mmol/L (96-108); Creatinine Clr Calc Pharmacy 68.5; Estimated Glomerular Filt Rate > 60; Glucose Fasting 84 mg/dL (60-99); Potassium 3.4 mmol/L (3.3-5.1); Sodium 138 mmol/L (135-145)
[2021-10-16 07:32] VITALS: BP 151/61; PULSE 46; RESP 20; TEMP 36.9; O2SAT 96
--- NOTE | 2021-10-16 09:04 | P.PNIM_ITS ---
Subjective Subjective Date of Service: 10/16/21 Interval History: cc: hip pain interval history: hip pain improved, but still present Cardiovascular Cardiovascular: Reports no additional cardiovascular complaints Respiratory Respiratory: Reports no additional respiratory complaints Physical Exam Vital Signs: Vital Signs: Last Vital Signs Temp 98.4 F 10/16/21 07:32 Pulse 46 L 10/16/21 07:32 Resp 20 10/16/21 07:32 BP 151/61 H 10/16/21 07:32 Pulse Ox 96 10/16/21 07:32 BMI result Body Mass Index 25.0 General: AO X 3, no acute distress Resp: CTA bilateral, no accessory muscles used CVS: S1,S2,irregular GI: soft, non tender, non distended Neuro: motor grossly intact, alert Psych: appropriate affect, appropriate insight Objective Data Active Medications Acetaminophen (Acetaminophen 325 Mg Tablet) 650 mg PO Q6H PRN PRN Reason: Pain, Mild (Pain Scale 1-3) Last Admin: 10/15/21 08:35 Dose: 650 mg Documented by: TOY Apixaban (Apixaban 2.5 Mg Tablet) 2.5 mg PO BID [facility] Last Admin: 10/15/21 20:59 Dose: 2.5 mg Documented by: ARNIE Cyanocobalamin (Cyanocobalamin (Vitamin B-12) 1,000 Mcg Tablet) 1,000 mcg PO DAILY [facility] Last Admin: 10/15/21 08:36 Dose: 1,000 mcg Documented by: TOY Hydroxyzine HCl (Hydroxyzine Hcl 10 Mg Tablet) 10 mg PO QID [facility] Last Admin: 10/15/21 20:59 Dose: 10 mg Documented by: ARNIE Vancomycin HCl 1,250 mg/ (Sodium Chloride) 250 mls @ 166.667 mls/hr IV Q24H [facility] Last Infusion: 10/15/21 21:03 Dose: 0 mls/hr Documented by: ARNIE Piperacillin Sod/Tazobactam (Sod 3.375 gm/ Sodium Chloride) 50 mls @ 100 mls/hr IV Q6H [facility] Last Infusion: 10/16/21 03:31 Dose: 0 mls/hr Documented by: BALBIR Morphine Sulfate (Morphine Sulfate 2 Mg/Ml Cartridge) 2 mg IVPUSH Q3H PRN; Protocol PRN Reason: moderate pain Last Admin: 10/16/21 08:56 Dose: 2 mg Documented by: STAN Pharmacy Consult (Consult Rx Perform Med Rec) 1 each MISCELLANE ONCE PRN PRN Reason: Consult order Pharmacy Consult (Consult Rx Vancomycin Dosing) 1 each MISCELLANE DAILY PRN PRN Reason: Consult order Sodium Chloride (0.9 % Sodium Chloride Flush 3 Ml Syringe) 3 ml IVFLUSH QSHIFT [facility] Last Admin: 10/16/21 00:52 Dose: Not Given Documented by: BALBIR Non-Admin Reason: POTR FLUSH ONLY Labs CBC & Chem 7: 10/16/21 05:10 10/16/21 05:10 Labs: Laboratory Results - last 24 hr 10/16/21 10/16/21 05:10 05:10 MCV 98.0 MCH 32.4 MCHC 33.0 RDW 12.8 Plt Count 100 L MPV 10.1 Absolute Nucleated RBC 0.000 Nucleated RBC % (auto) 0.0 Anion Gap 13 Estim Creat Clear Calc 68.5 Estimated GFR > 60 Fasting Glucose 84 Calcium 7.9 L Microbiology Microbiology Results: Microbiology 10/14/21 14:56 Blood Culture - Preliminary Blood - Venous Staphylococcus aureus 10/14/21 13:51 Blood Culture - Preliminary Blood - Venous Staphylococcus aureus Assessment and Plan (1) Fever: Status: Acute Plan 81M presented with right hip pain, found to have SIRS, pancreatic inflammation on CT sepsis due to staph aureus bacteremia continue vanc will dc zosyn, follow up sensitivities and adjust antibiotics accordingly follow up repeat culture from today 10/16/21 if positive will have to consider port removal, if negative can save port, ID following follow up echo ortho appreciated - septic hip unlikely possible port infection, though site looks clean acute pancreatitis asymptomatic unclear etiology monitor second degree AV block, mobitz I asymptomatic not on chronotropic meds history of DVT of RUE unclear why patient is on low dose eliquis will continue for now DNR/DNI Quality Stroke Does the patient have a stroke diagnosis?: No VTE Prior VTE?: Yes VTE Risk Level:: Medical - moderate - high VTE Device Contraindication: Treatment Not Indicated VTE Drug Contraindication: N/A - Med Ordered
--- NOTE | 2021-10-16 09:20 | HE.PHANOTE ---
Patient next trough 10/17@1700, scr slightly decreased since yesterday
--- NOTE | 2021-10-16 10:30 | CA_ITS ---
Transthoracic Echocardiogram Patient (Last, First, Middle): Raad Cervantes F Gender: Male Date of : 1940 Age: 81 Procedure Date: 10/16/2021 Procedure Type: Transthoracic Echocardiogram Location: ER Height: 180.34 cm Weight: 81.19 kg BSA: 2.01 m2 Heart Rate: bpm BP: 143 / 65 mmHg Front Desk Coordinator: Referring MD: Yunier Crawford MD Symptoms: bacteremia Study Quality: Fair ECG Rhythm: Sinus Conclusions: - Normal left ventricular size and systolic function. The visually estimated ejection fraction is between 55-60%. - Normal right ventricular cavity size and systolic function. - There is mild aortic valve stenosis. Findings Left Ventricle Normal left ventricular size and systolic function. The visually estimated ejection fraction is between 55-60%. There is no evidence of regional wall motion abnormalities. Diastolic function is indeterminate on the basis of available data. Right Ventricle Normal right ventricular cavity size and systolic function. Atria Both atria are normal in size. Aortic Valve The aortic valve was not well visualized. There is a normal trileaflet aortic valve. There is mild aortic valve stenosis. There is no aortic valve regurgitation. Mitral Valve Normal mitral valve structure and function. There is no mitral valve regurgitation. There is no mitral valve stenosis. Pulmonic Valve The pulmonic valve is likely normal. Tricuspid Valve Normal tricuspid valve structure and function. There is trace tricuspid valve regurgitation. Tricuspid regurgitation envelope is inadequate for calculation of right ventricular systolic pressure. Normal right atrial pressure. Great Vessels All visible segments of the aorta are normal in size. The visualized portions of the pulmonary artery and branches are normal. Venous The inferior vena cava is normal in size and collapses greater than 50% with inspiration. Pericardium/Pleural There is no evidence of pericardial effusion. Prior Study Comparison No prior study available for comparison. Measurements 2D Linear Measurements IVSd: 1.02 0.6-0.9/0.6-1.0 cm LVIDd: 5.32 3.9-5.3/4.2-5.9 cm LVIDd Index: 2.65 2.4-3.2/2.2-3.1 cm/m2 LVIDs: 3.73 2.0-3.6 cm LVPWd: 1.08 0.7-1.1 cm Ao Root: 3.00 2.1-3.5 cm LA Diam: 4.80 2.7-3.8/3.0-4.0 cm LAIDs Index: 2.39 1.5-2.3 cm/m2 LV Mass: 268.27 67-162/88-224 g LV Mass Index: 133.47 43-95/49-115 g/m2 LVOT Diam: 2.40 3.0+(-)1.3 cm Mitral Valve MV VTI: 0.49 MV Pk Jesús: 1.15 MV Mn Jesús: 0.64 MV Pk Grad: 5.00 MV Mn Grad: 2.00 MV Pk E: 0.71 MV PK A: 0.83 MV Decel Time: 382.00 E/A: 0.90 E'Lateral: 6.20 E'Medial: 4.79 E/E' Med: 14.80 E/E' Lat: 11.40 PHT: 112.00 MVA PHT: 1.96 MVA Continuity: 2.44 Decel Roosevelt: 1.85 Aortic Valve AoV Pk Jesús: 2.05 AoV Mn Jesús: 1.46 AoV VTI: 0.39 AoV Pk Grad: 17.00 Aov Mn Grad: 9.00 AG Cont.VTI: 3.07 LVOT LVOT Pk Jesús: 1.20 LVOT Mn Jesús: 0.86 LVOT VTI: 0.26 LVOT Pk Grad: 6.00 LVOT Mn Grad: 3.00 LVOT Diam: 2.40 LVOT Area: 4.52 Diastolic Function MV Pk E: 0.71 MV Pk A: 0.83 E/A: 0.90 E'Medial: 4.79 E/E' Med: 14.80 E' Laterial: 6.20 E/E' Lat: 11.40 Great Vessels Aorta Ao Root-2D: 3.00 2.0-3.7 cm Ao Asc: 3.50 2.1-3.4 cm Pulmonary Valve PV Pk Jesús: 1.45 Peak PV Grad: 8.00 Updated in Other Vendor System with Status of Final Jason Hilton MD electronically signed on 10/16/2021 8:55:38 PM with status of Final
[2021-10-16] MEDS: Apixaban 2.5 MG TABLET PO ×2 (10:37→20:29)
[2021-10-16] MEDS: Cyanocobalamin (Vitamin B-12) 1,000 MCG TABLET 1000 MCG PO (10:37)
[2021-10-16] MEDS: 0.9 % Sodium Chloride Flush 3 ML SYRINGE IVFLUSH ×3 (10:37→23:36)
[2021-10-16] MEDS: hydrOXYzine HCL 10 MG TABLET PO ×4 (10:37→20:29)
[2021-10-16] MEDS: Morphine Sulfate 2 MG/ML CARTRIDGE 4 MG IVPUSH ×3 (11:21→23:47)
--- NOTE | 2021-10-16 12:03 | MHC.CM.PN ---
EMR REVIEWED, PER HOSPITALIST PT WILL NEED [facility] IV ABX AT HOME FOR STAPH BACTEREMIA, PT DECLINING STR, PT IS CURRENTLY ON CHEMO FOR THROAT CA AND WAS ASKING IF IV ABX COULD BE GIVEN THROUGH EXISTING PORT, PER ID PT WILL NEED 4 WKS OF IV ABX, UNSURE OF FINAL ABX AT THIS TIME, SECOND SET OF BLOOD CULTURES DRAWN TODAY, POSSIBILITY OF PORT NEEDING TO BE REMOVED IF SECOND SET OF BC'S ARE POSITIVE. CM MET W/PT WHO REPORTS HE HAS MANAGED A GTUBE INDEPENDENTLY IN THE PAST, PT DOES NOT FEEL HE WOULD NEED ASSISTANCE HOWEVER PT'S FRIEND MIGUEL ANGEL JONES AT BEDSIDE AND IS WILLING TO COME IN FOR TEACH AND ASSIST PT NEEDED. PT PREFERS [facility] AND HAS NO PREFERENCE OF [facility], REFERRALS SENT TO [facility] AND [facility].
[2021-10-16 15:10] VITALS: BP 152/76; PULSE 57; RESP 18; TEMP 36.7; O2SAT 95
--- NOTE | 2021-10-16 15:15 | PC.NURSE ---
Patient refusing meals. States he doesn't want to have an accident in the bed. patient drinking a lot of water. Educated patient about nutrition and Ensure shakes ordered. Dr. Yvette luna.
[2021-10-16] MEDS: vancomycin HCL 1,250 MG in 0.9 % Sodium Chloride 250 ML 166.67 MG IV (18:16)
[2021-10-16 23:23] VITALS: BP 136/58; PULSE 50; RESP 16; TEMP 37; O2SAT 94
[2021-10-17] MEDS: Piperacillin Sodium/Tazobactam 3.375 GM in 0.9 % Sodium Chloride 50 ML IV ×2 (02:47→10:09)
[2021-10-17 03:47] VITALS: BP 165/74; PULSE 88; RESP 18; TEMP 36.2; O2SAT 91
[2021-10-17] MEDS: Haloperidol Lactate 5 MG/ML VIAL 2.5 MG IVPUSH (05:21)
--- NOTE | 2021-10-17 05:22 | PM.EVENT ---
Event Note Date of Service: 10/17/21 Event Note: pt got out of bed without assistance, fell and sustained a bump on the right upper episcopalian. pt reports that he slipped. denies any numbness, weakness, he reports that he didnt have his glasses. after coming back from head CT pt became frustrated with nursing staff and reported that he wants to leave AMA. although pt is awake, alert and oriented to himself and place, he appears to be visually hallucinating somewhat but directable. given 2.5 of haldol and was able to convince him to stay
--- NOTE | 2021-10-17 05:23 | PC.NURSE ---
0400 PT FOUND ON FLOOR NEXT TO BED BY PIE DOUGH ROLLER.HAD BEEN REFUSING BED ALARM.LARGE BUMP NOTED TO RIGHT FOREHEAD.DENIED PAIN.NO OTHER INJURIES NOTED.LEAD BI DEVELOPER GAGAN AND NOTIFIED.BOTH CAME TO SEE PT.CT O HEAD ORDERED.ICE APPLIED TO FOREHEAD.CAMERA PLACED IN ROOM.BED ALARM ON.
--- NOTE | 2021-10-17 05:26 | PC.NURSE ---
0500 PT BECAME VERY ANGRY WANTING TO LEAVE AMA.EXPLAINED TO PT THAT HE NEEDS IV ANTIBIOTICS FOR HIS BLOOD INFECTION.SAID HE WANTS TO GO TO [facility].SECURITY CALLED.TALKED WITH PT WHO STIIL INSIST ON LEAVING AMA. NOTIFIED.ORDERED HALDOL 2.5MG IV GIVEN AT 0510. CAME TO TALK TO PT.PT RESTING IN BED AT PRESENT TIME.BED ALARM ON .
[2021-10-17 06:02] LABS: Hematocrit 34.8 % (42.0-52.0); Hemoglobin 11.5 g/dl (14.0-18.0); Mean Corpuscular Hemoglobin 31.7 pg (27.0-33.0); Mean Corpuscular Volume 95.9 fL (80.0-98.0); Mean Platelet Volume 10.4 fL (9.4-12.4); Platelet Count 135 X10*3/uL (160-400); Red Blood Count 3.63 X10*6/uL (4.60-5.80); Red Cell Distribution Width 12.7 % (11.0-16.0); White Blood Count 9.2 X10*3/uL (4.8-10.8)
[2021-10-17 06:30] LABS: Anion Gap 15 (12-20); Blood Urea Nitrogen 15 mg/dL (9-16); Calcium 8.2 mg/dL (8.4-10.2); Carbon Dioxide 19 mmol/L (22-29); Chloride 108 mmol/L (96-108); Estimated Glomerular Filt Rate > 60; Glucose Fasting 175 mg/dL (60-99); Potassium 2.8 mmol/L (3.3-5.1); Sodium 139 mmol/L (135-145)
[2021-10-17 07:55] VITALS: BP 134/64; PULSE 62; RESP 18; TEMP 36.9; O2SAT 94
[2021-10-17] MEDS: 0.9 % Sodium Chloride Flush 3 ML SYRINGE IVFLUSH ×2 (10:09→15:45)
[2021-10-17] MEDS: Apixaban 2.5 MG TABLET PO ×2 (10:09→21:58)
[2021-10-17] MEDS: Potassium Chloride ER 20 MEQ TAB.ER.PRT 40 MEQ PO (10:09)
[2021-10-17] MEDS: Cyanocobalamin (Vitamin B-12) 1,000 MCG TABLET 1000 MCG PO (10:09)
[2021-10-17] MEDS: hydrOXYzine HCL 10 MG TABLET PO ×4 (10:09→21:58)
[2021-10-17] MEDS: Morphine Sulfate 2 MG/ML CARTRIDGE 4 MG IVPUSH ×2 (10:09→23:58)
--- NOTE | 2021-10-17 10:36 | HO.PM.IMPN ---
Subjective Subjective Date of Service: 10/17/21 Interval History: the patient was seen and evaluated this morning Laying in bed, sleeping after receiving Haldol overnight Became agitated and had a fall Reported hip pain No reported other overnight events. Systemic review: No fever, chills or weakness No chest pain, palpitation No shortness of breath or coughing No abdominal pain, nausea or vomiting Having hip pain No urinary symptoms No any rash or wounds Physical Exam Vital Signs: Vital Signs: Last Vital Signs Temp 98.4 F 10/17/21 07:55 Pulse 62 10/17/21 07:55 Resp 18 10/17/21 07:55 BP 134/64 10/17/21 07:55 Pulse Ox 94 10/17/21 07:55 BMI result Body Mass Index 25.0 Const: Other: Constitutional : Alert, not in distress Neck : Normal inspection, Supple Cardiovascular : RRR, S1 S2, no lower extremity edema Respiratory : Fair bilateral air entry, no crackles, wheezes or rhonchi Gastrointestinal: soft, lax, Normal bowel sounds, Non tender Skin : Warm, Dry : Skeletal: Right hip decreased range of motion mild tenderness with movement, no drainage or erythema noted Neurological : Alert & oriented x3, No focal deficit Objective Data Active Medications Acetaminophen (Acetaminophen 325 Mg Tablet) 650 mg PO Q6H PRN PRN Reason: Pain, Mild (Pain Scale 1-3) Last Admin: 10/15/21 08:35 Dose: 650 mg Documented by: TOY Apixaban (Apixaban 2.5 Mg Tablet) 2.5 mg PO BID [facility] Last Admin: 10/17/21 10:09 Dose: 2.5 mg Documented by: STAN Cyanocobalamin (Cyanocobalamin (Vitamin B-12) 1,000 Mcg Tablet) 1,000 mcg PO DAILY [facility] Last Admin: 10/17/21 10:09 Dose: 1,000 mcg Documented by: STAN Hydroxyzine HCl (Hydroxyzine Hcl 10 Mg Tablet) 10 mg PO QID [facility] Last Admin: 10/17/21 10:09 Dose: 10 mg Documented by: STAN Vancomycin HCl 1,250 mg/ (Sodium Chloride) 250 mls @ 166.667 mls/hr IV Q24H [facility] Last Infusion: 10/16/21 20:17 Dose: 0 mls/hr Documented by: ARNIE Piperacillin Sod/Tazobactam (Sod 3.375 gm/ Sodium Chloride) 50 mls @ 100 mls/hr IV Q6H [facility] Last Admin: 10/17/21 10:09 Dose: 100 mls/hr Documented by: STAN Morphine Sulfate (Morphine Sulfate 2 Mg/Ml Cartridge) 4 mg IVPUSH Q3H PRN; Protocol PRN Reason: moderate pain Last Admin: 10/17/21 10:09 Dose: 4 mg Documented by: STAN Pharmacy Consult (Consult Rx Perform Med Rec) 1 each MISCELLANE ONCE PRN PRN Reason: Consult order Pharmacy Consult (Consult Rx Vancomycin Dosing) 1 each MISCELLANE DAILY PRN PRN Reason: Consult order Sodium Chloride (0.9 % Sodium Chloride Flush 3 Ml Syringe) 3 ml IVFLUSH QSHIFT [facility] Last Admin: 10/17/21 10:09 Dose: 3 ml Documented by: STAN Labs CBC & Chem 7: 10/17/21 05:21 10/17/21 05:21 Labs: Laboratory Results - last 24 hr 10/17/21 10/17/21 05:21 05:21 MCV 95.9 MCH 31.7 MCHC 33.0 RDW 12.7 Plt Count 135 L D MPV 10.4 Absolute Nucleated RBC 0.000 Nucleated RBC % (auto) 0.0 Anion Gap 15 Estim Creat Clear Calc 62.0 Estimated GFR > 60 Fasting Glucose 175 H D Calcium 8.2 L Microbiology Microbiology Results: Microbiology 10/14/21 14:56 Blood Culture - Final Blood - Venous Staphylococcus aureus 10/14/21 13:51 Blood Culture - Final Blood - Venous Staphylococcus aureus 10/16/21 05:10 Blood Culture - Preliminary Blood - Venous No growth after 24 hours. 10/16/21 05:16 Blood Culture - Preliminary Blood - Venous No growth after 24 hours. Assessment and Plan (1) Bacteremia: Status: Acute (2) Osteoarthritis of right hip: Status: Acute (3) Acute pancreatitis: Status: Acute Plan 81M presented with right hip pain, found to have SIRS, pancreatic inflammation on CT sepsis due to staph aureus bacteremia possible port infection, skin, Hip? Vancomycin Zosyn discontinued To start cefazolin 1 g q.8, consider daptomycin at discharge Repeat cultures still negative and pending 10/16/21 if positive will have to consider port removal, if negative can save port, ID following Echo within normal, no vegetations ortho input appreciated - septic hip unlikely Port looks clean, no surrounding erythema acute pancreatitis asymptomatic unclear etiology monitor second degree AV block, mobitz I asymptomatic not on chronotropic meds history of DVT of RUE unclear why patient is on low dose eliquis will continue for now DNR/DNI Quality Stroke Does the patient have a stroke diagnosis?: No VTE Prior VTE?: Yes VTE Risk Level:: Medical - moderate - high VTE Device Contraindication: Treatment Not Indicated VTE Drug Contraindication: N/A - Med Ordered
--- NOTE | 2021-10-17 11:58 | MHC.CM.PN ---
Addendum entered by Shiela Montana RN 10/17/21 14:50: PER HOSPITALIST DAPTOMYCIN 500MG DAILY CAN BE SUBSTITUTED FOR CEFAZOLIN TID, PER [facility] LIAISON PT'S COPAY ONLY $1.35 PER WEEK, HOSPITALIST AWARE AND PLAN WILL BE FOR DAPTO ON D/C AND ANTICIPATE D/C TOMORROW 10/17/21. Original Note: EMR REVIEWED, PER HOSPITALIST PT WILL NEED IV CEFAZOLIN TID, XU FROM [facility] AWARE AND WILL PLAN TO COME IN FOR A TEACH W/PT AND FRIEND ESPINOZA JONES, PT CONCERNED ABOUT HIS HIP PAIN AND WILL NEED TO FOLLOW UP OUPT W/ORTHO. CM WILL CONT TO FOLLOW D/C NEEDS.
--- NOTE | 2021-10-17 12:03 | MHC.CLN ---
Addendum entered by Julia Clancy, ANABELA 10/17/21 12:07: PATIENT WITH HX OF THROAT CANCER BUT DID NOT REPORT THAT MEAL REFUSAL WAS DUE TO CANCER. Original Note: NUTRITION CONSULT DUE TO POOR PO AND REFUSING MEALS. PER CONVERSATION WITH PATIENT, DOES NOT WANT MEALS DUE TO BM CONCERNS. WILL DRINK ENSURE AND HAD AT BEDSIDE DURING VISIT. AGREED TO INCREASE ENSURE TO TID FROM BID. PROVIDES 1050 KCAL, 60 G PROTEIN. ENCOURAGED PATIENT TO EAT MEALS.
[2021-10-17 15:27] VITALS: BP 152/69; PULSE 78; RESP 15; TEMP 37.6; O2SAT 96
[2021-10-17 17:56] LABS: Vancomycin Trough 10.7 mcg/mL (10.0-20.0)
[2021-10-17] MEDS: Acetaminophen 325 MG TABLET 650 MG PO (21:58)
[2021-10-17] MEDS: QUEtiapine Fumarate 25 MG TABLET PO (21:58)
[2021-10-17 23:14] VITALS: BP 142/66; PULSE 60; RESP 14; TEMP 36.8; O2SAT 96
[2021-10-18 01:25] VITALS: RESP 18
[2021-10-18 06:16] LABS: Hematocrit 30.2 % (42.0-52.0); Hemoglobin 9.9 g/dl (14.0-18.0); Mean Corpuscular HGB Conc 32.8 g/dl (31.0-36.0); Mean Corpuscular Hemoglobin 31.6 pg (27.0-33.0); Mean Corpuscular Volume 96.5 fL (80.0-98.0); Mean Platelet Volume 10.7 fL (9.4-12.4); Platelet Count 106 X10*3/uL (160-400); Red Blood Count 3.13 X10*6/uL (4.60-5.80); Red Cell Distribution Width 12.6 % (11.0-16.0); White Blood Count 4.9 X10*3/uL (4.8-10.8)
[2021-10-18] MEDS: Morphine Sulfate 2 MG/ML CARTRIDGE 4 MG IVPUSH ×3 (06:17→19:51)
[2021-10-18 06:41] LABS: Anion Gap 10 (12-20); Blood Urea Nitrogen 12 mg/dL (9-16); Calcium 8.1 mg/dL (8.4-10.2); Carbon Dioxide 24 mmol/L (22-29); Chloride 110 mmol/L (96-108); Creatinine Clr Calc Pharmacy 74.5; Estimated Glomerular Filt Rate > 60; Glucose Random 110 mg/dL (60-115); Sodium 141 mmol/L (135-145)
[2021-10-18 07:51] VITALS: BP 114/57; PULSE 78; RESP 18; TEMP 36.4; O2SAT 98
[2021-10-18] MEDS: Potassium Chloride ER 20 MEQ TAB.ER.PRT 40 MEQ PO (08:58)
[2021-10-18] MEDS: Cyanocobalamin (Vitamin B-12) 1,000 MCG TABLET 1000 MCG PO (08:58)
[2021-10-18] MEDS: hydrOXYzine HCL 10 MG TABLET PO ×4 (08:58→21:22)
[2021-10-18] MEDS: Apixaban 2.5 MG TABLET PO (08:58)
[2021-10-18] MEDS: 0.9 % Sodium Chloride Flush 3 ML SYRINGE IVFLUSH ×3 (08:59→21:22)
--- NOTE | 2021-10-18 09:05 | HO.PM.IMPN ---
Subjective Subjective Date of Service: 10/18/21 Interval History: the patient was seen and evaluated this morning Laying in bed, Feels comfortable No reported overnight events Reported hip pain No reported other overnight events. Systemic review: No fever, chills or weakness No chest pain, palpitation No shortness of breath or coughing No abdominal pain, nausea or vomiting Having hip pain No urinary symptoms No any rash or wounds Physical Exam Vital Signs: Vital Signs: Last Vital Signs Temp 97.5 F 10/18/21 07:51 Pulse 78 10/18/21 07:51 Resp 18 10/18/21 07:51 BP 114/57 L 10/18/21 07:51 Pulse Ox 98 10/18/21 07:51 BMI result Body Mass Index 25.0 Const: Other: Constitutional : Alert, not in distress Neck : Normal inspection, Supple Cardiovascular : RRR, S1 S2, no lower extremity edema Respiratory : Fair bilateral air entry, no crackles, wheezes or rhonchi Gastrointestinal: soft, lax, Normal bowel sounds, Non tender Skin : Warm, Dry : Skeletal: Right hip decreased range of motion mild tenderness with movement, no drainage or erythema noted Neurological : Alert & oriented x3, No focal deficit Objective Data Active Medications Acetaminophen (Acetaminophen 325 Mg Tablet) 650 mg PO Q6H PRN PRN Reason: Pain, Mild (Pain Scale 1-3) Last Admin: 10/17/21 21:58 Dose: 650 mg Documented by: ARNIE Apixaban (Apixaban 2.5 Mg Tablet) 2.5 mg PO BID [facility] Last Admin: 10/18/21 08:58 Dose: 2.5 mg Documented by: RUFUS Cyanocobalamin (Cyanocobalamin (Vitamin B-12) 1,000 Mcg Tablet) 1,000 mcg PO DAILY [facility] Last Admin: 10/18/21 08:58 Dose: 1,000 mcg Documented by: RUFUS Hydroxyzine HCl (Hydroxyzine Hcl 10 Mg Tablet) 10 mg PO QID [facility] Last Admin: 10/18/21 08:58 Dose: 10 mg Documented by: RUFUS Cefazolin Sodium 1 gm/ Sodium (Chloride) 50 mls @ 100 mls/hr IV Q8H [facility] Last Infusion: 10/18/21 06:22 Dose: 0 mls/hr Documented by: HO.SEXK Morphine Sulfate (Morphine Sulfate 2 Mg/Ml Cartridge) 4 mg IVPUSH Q3H PRN; Protocol PRN Reason: moderate pain Last Admin: 10/18/21 06:17 Dose: 4 mg Documented by: BALBIR Pharmacy Consult (Consult Rx Perform Med Rec) 1 each MISCELLANE ONCE PRN PRN Reason: Consult order Pharmacy Consult (Consult Rx Vancomycin Dosing) 1 each MISCELLANE DAILY PRN PRN Reason: Consult order Quetiapine Fumarate (Quetiapine Fumarate 25 Mg Tablet) 25 mg PO BEDTIME [facility] Last Admin: 10/17/21 21:58 Dose: 25 mg Documented by: ARNIE Sodium Chloride (0.9 % Sodium Chloride Flush 3 Ml Syringe) 3 ml IVFLUSH QSHIFT [facility] Last Admin: 10/18/21 08:59 Dose: 3 ml Documented by: GAURANGOSTELMA Labs CBC & Chem 7: 10/18/21 05:32 10/18/21 05:32 Labs: Laboratory Results - last 24 hr 10/17/21 10/18/21 10/18/21 17:08 05:32 05:32 MCV 96.5 MCH 31.6 MCHC 32.8 RDW 12.6 Plt Count 106 L MPV 10.7 Absolute Nucleated RBC 0.000 Nucleated RBC % (auto) 0.0 Anion Gap 10 L Estim Creat Clear Calc 74.5 Estimated GFR > 60 Random Glucose 110 Calcium 8.1 L Vancomycin Trough 10.7 Microbiology Microbiology Results: Microbiology 10/16/21 05:10 Blood Culture - Final Blood - Venous Staphylococcus aureus 10/16/21 05:16 Blood Culture - Final Blood - Venous Staphylococcus aureus 10/14/21 14:56 Blood Culture - Final Blood - Venous Staphylococcus aureus 10/14/21 13:51 Blood Culture - Final Blood - Venous Staphylococcus aureus Assessment and Plan (1) Osteoarthritis of right hip: Status: Acute (2) Staphylococcus aureus bacteremia: Status: Acute Plan 81M presented with right hip pain, found to have SIRS, pancreatic inflammation on CT sepsis due to staph aureus bacteremia possible port infection, skin, Hip? Repeat cultures turned positive from 10/16/21 Continue cefazolin 1 g q.8, consider daptomycin at discharge to do port removal, Echo within normal, no vegetations ortho input appreciated - septic hip unlikely repeat blood cultures by tomorrow acute pancreatitis asymptomatic unclear etiology monitor second degree AV block, mobitz I asymptomatic not on chronotropic meds history of DVT of RUE unclear why patient is on low dose eliquis will continue for now DNR/DNI Quality Stroke Does the patient have a stroke diagnosis?: No VTE Prior VTE?: Yes VTE Risk Level:: Medical - moderate - high VTE Device Contraindication: Treatment Not Indicated VTE Drug Contraindication: N/A - Med Ordered
--- NOTE | 2021-10-18 12:24 | MHC.CM.PN ---
Addendum entered by Shiela Montana RN 10/18/21 12:42: PT WILL D/C W/[facility] AND [facility], ABX WILL BE DAPTOMYCIN 500MG DAILY X 4 WKS AND HAS $1.35 COPAY PER WEEK. Original Note: PER MULTIDISCIPLINARY ROUNDS PT'S PORT INFECTED AND NEEDS TO BE REMOVED, PLAN WILL BE TO KEEP PT HERE OVER W/E AND PORT WILL BE REMOVED ON Friday10/22/21, HOSPITALIST WILL DISCUSS W/SURGICAL NEED FOR NEW PORT RATHER THAN PICC LINE D/T PT BEING ACTIVELY RECEIVING WEEKLY CHEMO INFUSIONS AT THE [facility]. PT'S ONCOLOGIST IS DR WOOD. PT HAD TEACH THIS MORNING W/[facility] FOR IV ABX TEACH, PER XU PT DID VERY WELL AND THINKS PT WILL HAVE NO ISSUES AT HOME, PT DOES HAVE HELP FROM FRIEND AND S[employer] DTR IF NEEDED. ANTIC D/C EARLY NEXT WEEK.
[2021-10-18 15:35] VITALS: BP 172/84; PULSE 75; RESP 16; TEMP 37.6; O2SAT 96
[2021-10-18] MEDS: QUEtiapine Fumarate 25 MG TABLET PO (21:22)
[2021-10-18] MEDS: Acetaminophen 325 MG TABLET 650 MG PO (21:27)
[2021-10-18 23:34] VITALS: BP 109/58; PULSE 79; RESP 14; TEMP 36.3; O2SAT 95
[2021-10-19] VITALS (8 sets, daily range): BP systolic 140–213; BP diastolic 48–83; PULSE 53–83; RESP 14–18; TEMP 36.6–37.1; O2SAT 93–98
[2021-10-19] MEDS: Morphine Sulfate 2 MG/ML CARTRIDGE 4 MG IVPUSH ×4 (00:16→20:04)
[2021-10-19 06:15] LABS: Hematocrit 31.3 % (42.0-52.0); Hemoglobin 10.2 g/dl (14.0-18.0); Mean Corpuscular HGB Conc 32.6 g/dl (31.0-36.0); Mean Corpuscular Hemoglobin 31.6 pg (27.0-33.0); Mean Corpuscular Volume 96.9 fL (80.0-98.0); Mean Platelet Volume 10.2 fL (9.4-12.4); Platelet Count 159 X10*3/uL (160-400); Red Blood Count 3.23 X10*6/uL (4.60-5.80); Red Cell Distribution Width 12.7 % (11.0-16.0); White Blood Count 5.4 X10*3/uL (4.8-10.8)
[2021-10-19 06:19] LABS: INTERNATIONAL NORM RATIO 1.5 (0.9-1.1); Prothrombin Time 16.9 SEC (9.9-13.0)
[2021-10-19 06:48] LABS: Anion Gap 11 (12-20); Blood Urea Nitrogen 9 mg/dL (9-16); Calcium 8.3 mg/dL (8.4-10.2); Carbon Dioxide 26 mmol/L (22-29); Chloride 108 mmol/L (96-108); Creatinine Clr Calc Pharmacy 72.6; Estimated Glomerular Filt Rate > 60; Glucose Random 95 mg/dL (60-115); Potassium 3.2 mmol/L (3.3-5.1); Sodium 142 mmol/L (135-145)
[2021-10-19] MEDS: Acetaminophen 325 MG TABLET 650 MG PO ×2 (07:36→22:59)
[2021-10-19] MEDS: hydrOXYzine HCL 10 MG TABLET PO ×4 (07:36→20:05)
[2021-10-19] MEDS: 0.9 % Sodium Chloride Flush 3 ML SYRINGE IVFLUSH ×3 (07:37→20:07)
[2021-10-19] MEDS: Cyanocobalamin (Vitamin B-12) 1,000 MCG TABLET 1000 MCG PO (07:37)
[2021-10-19] MEDS: Lidocaine HCl 1 % 20 ML VIAL 10 ML INFILTRATI (09:58)
--- NOTE | 2021-10-19 11:09 | HO.PM.IMPN ---
Subjective Subjective Date of Service: 10/19/21 Interval History: the patient was seen and evaluated this morning Laying in bed, Feels comfortable overall Went for port removal No reported overnight events Reported hip pain No reported other overnight events. Systemic review: No fever, chills or weakness No chest pain, palpitation No shortness of breath or coughing No abdominal pain, nausea or vomiting Having hip pain No urinary symptoms No any rash or wounds Physical Exam Vital Signs: Vital Signs: Last Vital Signs Temp 98.1 F 10/19/21 10:28 Pulse 60 10/19/21 10:43 Resp 16 10/19/21 10:43 BP 160/57 H 10/19/21 10:43 Pulse Ox 96 10/19/21 10:43 BMI result Body Mass Index 25.0 Const: Other: Constitutional : Alert, not in distress Neck : Normal inspection, Supple Cardiovascular : RRR, S1 S2, no lower extremity edema Respiratory : Fair bilateral air entry, no crackles, wheezes or rhonchi Gastrointestinal: soft, lax, Normal bowel sounds, Non tender Skin : Warm, Dry : Skeletal: Right hip decreased range of motion mild tenderness with movement, no drainage or erythema noted Neurological : Alert & oriented x3, No focal deficit Objective Data Active Medications Acetaminophen (Acetaminophen 325 Mg Tablet) 650 mg PO Q6H PRN PRN Reason: Pain, Mild (Pain Scale 1-3) Last Admin: 10/19/21 07:36 Dose: 650 mg Documented by: RUFUS Apixaban (Apixaban 2.5 Mg Tablet) 2.5 mg PO BID [facility] Last Admin: 10/18/21 08:58 Dose: 2.5 mg Documented by: RUFUS Cyanocobalamin (Cyanocobalamin (Vitamin B-12) 1,000 Mcg Tablet) 1,000 mcg PO DAILY [facility] Last Admin: 10/19/21 07:37 Dose: 1,000 mcg Documented by: RUFUS Hydroxyzine HCl (Hydroxyzine Hcl 10 Mg Tablet) 10 mg PO QID [facility] Last Admin: 10/19/21 07:36 Dose: 10 mg Documented by: RUFUS Cefazolin Sodium 1 gm/ Sodium (Chloride) 50 mls @ 100 mls/hr IV Q8H [facility] Last Infusion: 10/19/21 05:32 Dose: 0 mls/hr Documented by: LAURITA Morphine Sulfate (Morphine Sulfate 2 Mg/Ml Cartridge) 4 mg IVPUSH Q3H PRN; Protocol PRN Reason: moderate pain Last Admin: 10/19/21 04:52 Dose: 4 mg Documented by: LAURITA Pharmacy Consult (Consult Rx Perform Med Rec) 1 each MISCELLANE ONCE PRN PRN Reason: Consult order Pharmacy Consult (Consult Rx Vancomycin Dosing) 1 each MISCELLANE DAILY PRN PRN Reason: Consult order Potassium Chloride (Potassium Chloride Er 20 Meq Tab.Er.Prt) 40 meq PO BID [facility] Stop: 10/19/21 21:01 Quetiapine Fumarate (Quetiapine Fumarate 25 Mg Tablet) 25 mg PO BEDTIME [facility] Last Admin: 10/18/21 21:22 Dose: 25 mg Documented by: LAURITA Sodium Chloride (0.9 % Sodium Chloride Flush 3 Ml Syringe) 3 ml IVFLUSH QSHIFT [facility] Last Admin: 10/19/21 07:37 Dose: 3 ml Documented by: RUFUS Labs CBC & Chem 7: 10/19/21 05:38 10/19/21 05:38 Labs: Laboratory Results - last 24 hr 10/19/21 10/19/21 10/19/21 05:38 05:38 05:38 MCV 96.9 MCH 31.6 MCHC 32.6 RDW 12.7 Plt Count 159 L D MPV 10.2 Absolute Nucleated RBC 0.000 Nucleated RBC % (auto) 0.0 PT 16.9 H INR 1.5 H Anion Gap 11 L Estim Creat Clear Calc 72.6 Estimated GFR > 60 Random Glucose 95 Calcium 8.3 L Microbiology Microbiology Results: Microbiology 10/17/21 16:35 Blood Culture - Preliminary Blood - Venous No growth after 24 hours. 10/17/21 16:33 Blood Culture - Preliminary Blood - Venous No growth after 24 hours. 10/16/21 05:10 Blood Culture - Final Blood - Venous Staphylococcus aureus 10/16/21 05:16 Blood Culture - Final Blood - Venous Staphylococcus aureus Assessment and Plan (1) Staphylococcus aureus bacteremia: Status: Acute (2) Osteoarthritis of right hip: Status: Acute Plan 81M presented with right hip pain, found to have SIRS, pancreatic inflammation on CT sepsis due to staph aureus bacteremia likely port infection Repeat cultures turned positive from 10/16/21 Continue cefazolin 1 g q.8, consider daptomycin at discharge port removal today Echo within normal, no vegetations ortho input appreciated - septic hip unlikely repeat blood cultures this afternoon Plan for PICC at time of discharge acute pancreatitis asymptomatic unclear etiology monitor second degree AV block, mobitz I asymptomatic not on chronotropic meds history of DVT of RUE unclear why patient is on low dose eliquis will continue for now DNR/DNI Quality Stroke Does the patient have a stroke diagnosis?: No VTE Prior VTE?: Yes VTE Risk Level:: Medical - moderate - high VTE Device Contraindication: Treatment Not Indicated VTE Drug Contraindication: N/A - Med Ordered
[2021-10-19] MEDS: Potassium Chloride ER 20 MEQ TAB.ER.PRT 40 MEQ PO ×2 (12:44→20:05)
[2021-10-19] MEDS: amLODIPine Besylate 5 MG TABLET PO (12:58)
[2021-10-19] MEDS: Apixaban 2.5 MG TABLET PO (20:05)
[2021-10-19] MEDS: QUEtiapine Fumarate 25 MG TABLET PO (20:05)
[2021-10-20] MEDS: Morphine Sulfate 2 MG/ML CARTRIDGE 4 MG IVPUSH ×6 (06:22→22:59)
[2021-10-20 06:25] LABS: Hematocrit 33.5 % (42.0-52.0); Mean Corpuscular HGB Conc 32.8 g/dl (31.0-36.0); Mean Corpuscular Hemoglobin 31.9 pg (27.0-33.0); Mean Corpuscular Volume 97.1 fL (80.0-98.0); Platelet Count 181 X10*3/uL (160-400); Red Blood Count 3.45 X10*6/uL (4.60-5.80); Red Cell Distribution Width 12.8 % (11.0-16.0); White Blood Count 4.7 X10*3/uL (4.8-10.8)
[2021-10-20 06:54] LABS: Anion Gap 13 (12-20); Blood Urea Nitrogen 9 mg/dL (9-16); Calcium 8.3 mg/dL (8.4-10.2); Carbon Dioxide 26 mmol/L (22-29); Chloride 106 mmol/L (96-108); Creatinine Clr Calc Pharmacy 77.4; Estimated Glomerular Filt Rate > 60; Glucose Random 82 mg/dL (60-115); Sodium 141 mmol/L (135-145)
[2021-10-20 07:32] VITALS: BP 180/68; PULSE 78; RESP 18; TEMP 36.8; O2SAT 95
[2021-10-20] MEDS: hydrOXYzine HCL 10 MG TABLET PO ×4 (08:18→19:41)
[2021-10-20] MEDS: Apixaban 2.5 MG TABLET PO ×2 (08:18→19:41)
[2021-10-20] MEDS: Cyanocobalamin (Vitamin B-12) 1,000 MCG TABLET 1000 MCG PO (08:18)
[2021-10-20] MEDS: 0.9 % Sodium Chloride Flush 3 ML SYRINGE IVFLUSH ×3 (08:19→20:50)
[2021-10-20 11:20] VITALS: RESP 18
--- NOTE | 2021-10-20 12:03 | HO.PM.IMPN ---
Subjective Subjective Date of Service: 10/20/21 Interval History: the patient was seen and evaluated this morning Laying in bed, Feels comfortable overall Reported hip pain No reported other overnight events. Systemic review: No fever, chills or weakness No chest pain, palpitation No shortness of breath or coughing No abdominal pain, nausea or vomiting Having hip pain No urinary symptoms No any rash or wounds Physical Exam Vital Signs: Vital Signs: Last Vital Signs Temp 983 F H 10/20/21 07:32 Pulse 78 10/20/21 07:32 Resp 18 10/20/21 11:20 BP 180/68 H 10/20/21 07:32 Pulse Ox 95 10/20/21 07:32 BMI result Body Mass Index 25.0 Const: Other: Constitutional : Alert, not in distress Neck : Normal inspection, Supple Cardiovascular : RRR, S1 S2, no lower extremity edema Respiratory : Fair bilateral air entry, no crackles, wheezes or rhonchi Gastrointestinal: soft, lax, Normal bowel sounds, Non tender Skin : Warm, Dry : Skeletal: Right hip decreased range of motion mild tenderness with movement, no drainage or erythema noted Neurological : Alert & oriented x3, No focal deficit Objective Data Active Medications Acetaminophen (Acetaminophen 325 Mg Tablet) 650 mg PO Q6H PRN PRN Reason: Pain, Mild (Pain Scale 1-3) Last Admin: 10/19/21 22:59 Dose: 650 mg Documented by: AFRICA Apixaban (Apixaban 2.5 Mg Tablet) 2.5 mg PO BID [facility] Last Admin: 10/20/21 08:18 Dose: 2.5 mg Documented by: KORIN Cyanocobalamin (Cyanocobalamin (Vitamin B-12) 1,000 Mcg Tablet) 1,000 mcg PO DAILY [facility] Last Admin: 10/20/21 08:18 Dose: 1,000 mcg Documented by: KORIN Hydroxyzine HCl (Hydroxyzine Hcl 10 Mg Tablet) 10 mg PO QID [facility] Last Admin: 10/20/21 08:18 Dose: 10 mg Documented by: KORIN Cefazolin Sodium 1 gm/ Sodium (Chloride) 50 mls @ 100 mls/hr IV Q8H [facility] Last Infusion: 10/20/21 06:55 Dose: 0 mls/hr Documented by: AFRICA Morphine Sulfate (Morphine Sulfate 2 Mg/Ml Cartridge) 4 mg IVPUSH Q3H PRN; Protocol PRN Reason: moderate pain Last Admin: 10/20/21 11:20 Dose: 4 mg Documented by: KORIN Pharmacy Consult (Consult Rx Perform Med Rec) 1 each MISCELLANE ONCE PRN PRN Reason: Consult order Pharmacy Consult (Consult Rx Vancomycin Dosing) 1 each MISCELLANE DAILY PRN PRN Reason: Consult order Quetiapine Fumarate (Quetiapine Fumarate 25 Mg Tablet) 25 mg PO BEDTIME [facility] Last Admin: 10/19/21 20:05 Dose: 25 mg Documented by: AFRICA Sodium Chloride (0.9 % Sodium Chloride Flush 3 Ml Syringe) 3 ml IVFLUSH QSHIFT [facility] Last Admin: 10/20/21 08:19 Dose: 3 ml Documented by: KORIN Labs CBC & Chem 7: 10/20/21 05:14 10/20/21 05:14 Labs: Laboratory Results - last 24 hr 10/20/21 10/20/21 05:14 05:14 MCV 97.1 MCH 31.9 MCHC 32.8 RDW 12.8 Plt Count 181 MPV 10.0 Absolute Nucleated RBC 0.000 Nucleated RBC % (auto) 0.0 Anion Gap 13 Estim Creat Clear Calc 77.4 Estimated GFR > 60 Random Glucose 82 Calcium 8.3 L Microbiology Microbiology Results: Microbiology 10/17/21 16:33 Blood Culture - Preliminary Blood - Venous No growth after 48 hours. 10/17/21 16:35 Blood Culture - Preliminary Blood - Venous No growth after 48 hours. Assessment and Plan (1) Staphylococcus aureus bacteremia: Status: Acute (2) Osteoarthritis of right hip: Status: Acute Plan 81M presented with right hip pain, found to have SIRS, pancreatic inflammation on CT sepsis due to staph aureus bacteremia likely port infection Repeat cultures turned positive from 10/16/21 Continue cefazolin 1 g q.8, consider daptomycin at discharge port removed Echo within normal, no vegetations ortho input appreciated - septic hip unlikely repeat blood cultures negative and pending Plan for PICC on Friday acute pancreatitis asymptomatic unclear etiology monitor second degree AV block, mobitz I asymptomatic not on chronotropic meds history of DVT of RUE unclear why patient is on low dose eliquis will continue for now DNR/DNI Quality Stroke Does the patient have a stroke diagnosis?: No VTE Prior VTE?: Yes VTE Risk Level:: Medical - moderate - high VTE Device Contraindication: Treatment Not Indicated VTE Drug Contraindication: N/A - Med Ordered
[2021-10-20] MEDS: Acetaminophen 325 MG TABLET 650 MG PO ×2 (13:48→19:41)
[2021-10-20 15:28] VITALS: BP 140/65; PULSE 73; RESP 18; TEMP 37.2; O2SAT 96
[2021-10-20] MEDS: QUEtiapine Fumarate 25 MG TABLET PO (19:41)
[2021-10-20 23:26] VITALS: BP 132/65; PULSE 75; RESP 20; TEMP 37; O2SAT 92
[2021-10-21] MEDS: Morphine Sulfate 2 MG/ML CARTRIDGE 4 MG IVPUSH ×2 (05:38→08:28)
[2021-10-21 06:10] LABS: Creatinine Clr Calc Pharmacy 82.7; Estimated Glomerular Filt Rate > 60
[2021-10-21 07:30] VITALS: BP 168/96; PULSE 68; RESP 18; TEMP 36.6; O2SAT 98
[2021-10-21] MEDS: Cyanocobalamin (Vitamin B-12) 1,000 MCG TABLET 1000 MCG PO (08:27)
[2021-10-21] MEDS: hydrOXYzine HCL 10 MG TABLET PO ×4 (08:27→22:02)
[2021-10-21] MEDS: Apixaban 2.5 MG TABLET PO (08:27)
[2021-10-21] MEDS: 0.9 % Sodium Chloride Flush 3 ML SYRINGE IVFLUSH ×3 (08:27→22:08)
--- NOTE | 2021-10-21 10:19 | HO.PM.IMPN ---
Subjective Subjective Date of Service: 10/21/21 Interval History: the patient was seen and evaluated this morning Laying in bed, Feels comfortable overall Reported hip pain No reported other overnight events. Systemic review: No fever, chills or weakness No chest pain, palpitation No shortness of breath or coughing No abdominal pain, nausea or vomiting Having hip pain No urinary symptoms No any rash or wounds Physical Exam Vital Signs: Vital Signs: Last Vital Signs Temp 97.9 F 10/21/21 07:30 Pulse 68 10/21/21 07:30 Resp 18 10/21/21 07:30 BP 168/96 H 10/21/21 07:30 Pulse Ox 98 10/21/21 07:30 BMI result Body Mass Index 25.0 Const: Other: Constitutional : Alert, not in distress Neck : Normal inspection, Supple Cardiovascular : RRR, S1 S2, no lower extremity edema Respiratory : Fair bilateral air entry, no crackles, wheezes or rhonchi Gastrointestinal: soft, lax, Normal bowel sounds, Non tender Skin : Warm, Dry : Skeletal: Right hip decreased range of motion mild tenderness with movement, no drainage or erythema noted Neurological : Alert & oriented x3, No focal deficit Objective Data Active Medications Acetaminophen (Acetaminophen 325 Mg Tablet) 650 mg PO Q6H PRN PRN Reason: Pain, Mild (Pain Scale 1-3) Last Admin: 10/20/21 19:41 Dose: 650 mg Documented by: AFRICA Apixaban (Apixaban 2.5 Mg Tablet) 2.5 mg PO BID [facility] Last Admin: 10/21/21 08:27 Dose: 2.5 mg Documented by: CHRISTA Cyanocobalamin (Cyanocobalamin (Vitamin B-12) 1,000 Mcg Tablet) 1,000 mcg PO DAILY [facility] Last Admin: 10/21/21 08:27 Dose: 1,000 mcg Documented by: CHRISTA Hydroxyzine HCl (Hydroxyzine Hcl 10 Mg Tablet) 10 mg PO QID [facility] Last Admin: 10/21/21 08:27 Dose: 10 mg Documented by: CHRISTA Cefazolin Sodium 1 gm/ Sodium (Chloride) 50 mls @ 100 mls/hr IV Q8H [facility] Last Infusion: 10/21/21 06:12 Dose: 0 mls/hr Documented by: AFRICA Morphine Sulfate (Morphine Sulfate 2 Mg/Ml Cartridge) 4 mg IVPUSH Q3H PRN; Protocol PRN Reason: moderate pain Last Admin: 10/21/21 08:28 Dose: 4 mg Documented by: CHRISTA Pharmacy Consult (Consult Rx Perform Med Rec) 1 each MISCELLANE ONCE PRN PRN Reason: Consult order Pharmacy Consult (Consult Rx Vancomycin Dosing) 1 each MISCELLANE DAILY PRN PRN Reason: Consult order Quetiapine Fumarate (Quetiapine Fumarate 25 Mg Tablet) 25 mg PO BEDTIME [facility] Last Admin: 10/20/21 19:41 Dose: 25 mg Documented by: AFRICA Sodium Chloride (0.9 % Sodium Chloride Flush 3 Ml Syringe) 3 ml IVFLUSH QSHIFT [facility] Last Admin: 10/21/21 08:27 Dose: 3 ml Documented by: CHRISTA Labs CBC & Chem 7: 10/20/21 05:14 10/21/21 05:34 Labs: Laboratory Results - last 24 hr 10/21/21 05:34 Estim Creat Clear Calc 82.7 Estimated GFR > 60 Microbiology Microbiology Results: Microbiology 10/19/21 16:43 Blood Culture - Preliminary Blood - Venous No growth after 24 hours. 10/19/21 16:49 Blood Culture - Preliminary Blood - Venous No growth after 24 hours. Assessment and Plan (1) Staphylococcus aureus bacteremia: Status: Acute Plan 81M presented with right hip pain, found to have SIRS, pancreatic inflammation on CT sepsis due to staph aureus bacteremia likely port infection Repeat cultures turned positive from 10/16/21 Continue cefazolin 1 g q.8, consider daptomycin at discharge port removed Echo within normal, no vegetations ortho input appreciated - septic hip unlikely repeat blood cultures negative and pending Plan for PICC on Friday acute pancreatitis asymptomatic unclear etiology monitor second degree AV block, mobitz I asymptomatic not on chronotropic meds history of DVT of RUE unclear why patient is on low dose eliquis will continue for now DNR/DNI Quality Stroke Does the patient have a stroke diagnosis?: No VTE Prior VTE?: Yes VTE Risk Level:: Medical - moderate - high VTE Device Contraindication: Treatment Not Indicated VTE Drug Contraindication: N/A - Med Ordered
[2021-10-21] MEDS: Morphine Sulfate 4 MG/ML CARTRIDGE IVPUSH ×2 (13:01→16:22)
[2021-10-21 15:29] VITALS: BP 151/72; PULSE 57; RESP 18; TEMP 37.2; O2SAT 94
[2021-10-21] MEDS: Acetaminophen 325 MG TABLET 650 MG PO (15:36)
[2021-10-21] MEDS: QUEtiapine Fumarate 25 MG TABLET PO (22:02)
[2021-10-22] VITALS: BP 137/63; PULSE 69; RESP 16; TEMP 36.1; O2SAT 98
[2021-10-22 06:42] LABS: INTERNATIONAL NORM RATIO 1.7 (0.9-1.1); Prothrombin Time 19.4 SEC (9.9-13.0)
[2021-10-22] MEDS: hydrOXYzine HCL 10 MG TABLET PO ×4 (07:24→21:34)
[2021-10-22 07:25] VITALS: RESP 18
[2021-10-22] MEDS: Cyanocobalamin (Vitamin B-12) 1,000 MCG TABLET 1000 MCG PO (07:25)
[2021-10-22] MEDS: Morphine Sulfate 4 MG/ML CARTRIDGE IVPUSH ×4 (07:25→21:47)
[2021-10-22] MEDS: 0.9 % Sodium Chloride Flush 3 ML SYRINGE IVFLUSH ×3 (07:25→21:39)
[2021-10-22 07:55] VITALS: BP 152/71; PULSE 74; RESP 18; TEMP 37.1; O2SAT 95
[2021-10-22 08:53] VITALS: BP 152/71; PULSE 74; O2SAT 95
[2021-10-22] MEDS: Acetaminophen 325 MG TABLET 650 MG PO ×2 (09:56→16:37)
--- NOTE | 2021-10-22 10:10 | P.DS_ITS ---
DS: Providers Provider Date of Service: 10/23/21 Date of admission: 10/14/21 18:14 Primary care physician: Unknown Physician Consults: 10/14/21 18:12 Consult to Infectious Diseases Routine Consulting Provider: Gia Kirby Reason for consultation: SIRS unclear source, on chemo, has port, symptom was right hip pain 10/15/21 07:01 Consult to Orthopedics Routine Consulting Provider: Bony Ortiz Reason for consultation: right hip pain, sepsis, gram positive bacteremia, ?septic hip DS: Diagnosis Discharge Diagnosis (1) Staphylococcus aureus bacteremia: Status: Acute (2) Infection due to Port-A-Cath: Status: Acute (3) Osteoarthritis of right hip: Status: Acute (4) Acute pancreatitis: Status: Acute (5) Physical deconditioning: Status: Acute DS: Summary Hospital Course Hospital Course: Admission note HPI 81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 patient reports pain has been progressing over about 4 days, significantly worsening 2 nights prior to presentation, pain is non radiating, associated with decreased ROM and inability to ambulate. patient denies fevers, but did report chills and need for heavy blankets. he denies chest pain, abd pain, sob, cough, nausea, vomitting, diarrhea. in ED found to be febrile to 103, with elevated CRP, CT hip showed Osteoarthritis, no obvious infection, CT abd with fat stranding around pancreas. cxr unremarkable, UA did not appear infectious. Hospital course The patient was admitted to the hospital for hip pain associated with increased generalized weakness. X-ray and CT scan showed osteoarthritis of the hip that was evaluated by Orthopedic team who did not feel any source of infection in the hip and recommended pain medication and follow-up as outpatient once medically s table. Blood cultures were positive for Staph aureus MSSA. Echo was negative for any vegetations. Repeated cultures came back positive after treatment with antibiotics. Infectious Disease recommended removing the port as it is the most likely source of infection. Last negative blood culture from 10/17/2021. PICC line was placed at the day of discharge and he received the 1st dose of daptomycin. He was treated with cephazolin during the hospital stay but for discharge plan to home with [facility] id suggested daptomycin daily. He is supposed to finish the treatment by 11/14/2021. At time of presentation noted to have elevated lipase with picture of asymptomatic acute pancreatitis. Monitors with no active treatment. Noticed also to have second degree AV block, mobitz I. asymptomatic. not on chr onotropic meds. history of DVT of RUE patient is on low dose eliquis. Will continue at time of discharge and follow-up with PCP for the length of treatment. Discharged on daptomycin 500 mg daily to finish total of 4 weeks. Treatment should be done by November 14 To follow-up with orthopedic as outpatient for possible planning of hip replacement once medically stable to follow-up with PCP and Oncology as scheduled Time Spent with Patient Time attestation: Total time spent providing and/or coordinating discharge services: Discharge coordination time: Greater than 30 minutes Quality: Stroke Does the patient have a stroke diagnosis?: No Physical Exam Vital Signs: Vital Signs: Last Vital Signs Temp 98.7 F 10/22/21 07:55 Pulse 74 10/22/21 08:53 Resp 18 10/22/21 07:55 BP 152/71 H 10/22/21 08:53 Pulse Ox 95 10/22/21 08:53 BMI result Body Mass Index 25.0 Const: Other: Constitutional : Alert, not in distress Neck : Normal inspection, Supple Cardiovascular : RRR, S1 S2, no lower extremity edema Respiratory : Fair bilateral air entry, no crackles, wheezes or rhonchi Gastrointestinal: soft, lax, Normal bowel sounds, Non tender Skin : Warm, Dry, PICC line in place with no surrounding erythema or bleeding. : Skeletal: Right hip decreased range of motion mild tenderness with movement, no drainage or erythema noted Neurological : Alert & oriented x3, No focal deficit DS: Data Data Completed and Pending Labs on day of discharge: Laboratory Results - last 24 hr 10/22/21 06:13 PT 19.4 H INR 1.7 H Preliminary micro results at discharge 10/19/21 16:43 Blood Culture - Preliminary Blood - Venous No growth after 48 hours. 10/19/21 16:49 Blood Culture - Preliminary Blood - Venous No growth after 48 hours. 10/17/21 16:33 Blood Culture - Preliminary Blood - Venous No growth after 48 hours. 10/17/21 16:35 Blood Culture - Preliminary Blood - Venous No growth after 48 hours. Discharge Plan Discharge Patient Disposition: Home Health Service Discharge Diagnosis: Staphylococci aureus bacteremia Port infection Referrals: Harvey JUAREZ [Outside] - 1 Day ([facility] FOR IV ABX AND HOME PHYSICAL THERAPY) Physician,Unknown J [Primary Care Provider] - 1 Week Discharge Medications: New daptomycin 500 mg recon soln 500 mg IV Q24H Qty: 22 0RF Rx Instructions: administer over 30 mins (DME) Ultra-Light Rollator Misc See Rx Instructions .Route Qty: 1 0RF Rx Instructions: As directed oxycodone 5 mg tablet 5 mg PO BID MDD 15 mg PRN (Reason: pain (scale score 7-10)) Qty: 20 0RF Continued hydroxyzine HCl 10 mg tablet 10 mg PO QID 0RF Eliquis 2.5 mg tablet 1 tab PO BID 0RF riboflavin (vitamin B2) 100 mg Tablet 100 mg PO DAILY 0RF cyanocobalamin (vitamin B-12) 1,000 mcg Tablet 1,000 mcg PO DAILY 0RF tramadol 50 mg Tablet 50 mg PO TID PRN (Reason: Pain) 0RF Discharge Orders: Discharge Order (Routine); Ordered 10/23/21 Ordered By: Carmel Cabezas Diet: advance to usual diet Activity on Discharge: As tolerated Stand Alone Forms: Patient Portal Discharge page Care Plan Goals: Read below Health Concerns: Read below Plan of Treatment: Read below Assessment: You were evaluated in the hospital for generalized weakness and pain in your right hip. Evaluated by Orthopedic team who feels the pain is from osteoarthritis and you might need joint replacement when your medically stable. Your blood cultures were positive for bacteria called Staph aureus. Seen by infectious disease specialist who recommended treatment with IV antibiotics for total of 4 weeks. You report was removed and a PICC line was placed instead. To follow-up with orthopedic team as outpatient Continue daptomycin as prescribed To follow-up with PCP and Oncology as scheduled
[2021-10-22 15:34] VITALS: BP 142/68; PULSE 72; RESP 16; TEMP 36.5; O2SAT 96
--- NOTE | 2021-10-22 15:36 | MHC.CM.PN ---
EMR REVIEWED, PLAN FOR PICC LINE TODAY OR EARLY TOMORROW, NO NEW PORT TO BE PLACED UNTIL AFTER IV ABX ARE COMPLETED, PT TOP RECEIVE DOSE OF DAPTOMYCIN THROUGH PICC LINE AND WILL THEN D/C, ANTIC PT WILL D/C TOMORROW 10/23 W/[facility] AND [facility] FOR IV DAPTO 500MG X22 DOSES, PT WILL ARRANGE TRANSPORT.
[2021-10-22] MEDS: QUEtiapine Fumarate 25 MG TABLET PO (21:39)
[2021-10-22 23:56] VITALS: BP 136/71; PULSE 79; RESP 18; TEMP 36.6; O2SAT 95
[2021-10-23 01:32] LABS: OBS Int Ctl Valid YES; OBS1 NEGATIVE (NEGATIVE)
[2021-10-23] MEDS: Morphine Sulfate 4 MG/ML CARTRIDGE IVPUSH ×4 (01:46→13:50)
[2021-10-23 07:41] VITALS: BP 149/70; PULSE 53; RESP 18; TEMP 36.6; O2SAT 93
[2021-10-23 08:35] VITALS: BP 149/70; PULSE 53; O2SAT 93
[2021-10-23] MEDS: Cyanocobalamin (Vitamin B-12) 1,000 MCG TABLET 1000 MCG PO (09:00)
[2021-10-23] MEDS: hydrOXYzine HCL 10 MG TABLET PO ×2 (09:00→14:32)
[2021-10-23] MEDS: 0.9 % Sodium Chloride Flush 3 ML SYRINGE IVFLUSH (09:00)
[2021-10-23] MEDS: Acetaminophen 325 MG TABLET 650 MG PO (09:07)
--- NOTE | 2021-10-23 13:10 | P.PICC_ITS ---
PICC Line Insertion NPICC Diagnosis: [BACTEREMIA] Indication: [[facility] ANTIBX] Pertinent Labs: [REVIEWED] Technique: Following informed consent including risks, benefits and alternatives and using sterile technique including cap and mask, sterile gown, glove and drape, the [LEFT] arm was prepped and draped in the usual sterile fashion of full barrier technique with CHG. Following completion of [place] Protocol the skin and soft tissues were anesthetized with 1% Lidocaine plain. Using ultrasound guidance, [LEFT BRACHIAL] vein access was obtained AFTER TWO ATTEMPTS Over an 0.018 wire through peel-away sheath, a [4FR SINGLE LUMEN] PICC line was positioned. Catheter length is [43CM] internal length, [0CM] external length, for a total trimmed length of [43CM]. The procedure was performed in [RM. 272]. Tip verification was performed by Manasa Eaton with Sherlock 3CG. Tip located in SVC. Ultrasound was used to document vein patency and for needle entry. A formal ultrasound picture and cardiac rhythm strip was recorded. [facility] has released the line for use and it is currently dressed with a StatLock, Tegaderm, and CHG disc. Verification has been performed for blood return and line patency. Dr Raulito Perales connected about venous access flushing orderes at 1306. Arm Circumference: [27.5cm] Equipment: [BARD POWER PICC SOLO] Catheter Type: [4FR SINGLE LUMEN PICC ] Lot #: [[id number]]
--- NOTE | 2021-10-23 13:23 | MHC.CM.PN ---
PT RETURNED FROM IR W/PICC IN PLACE, PT WILL D/C HOME TODAY W/[facility] FOR SN AND HOME PT AND [facility] FOR IV ABX DELIVERY BY END OF DAY TODAY AND [facility] FOR PAIN MEDS AND WALKER, DTR IN [facility] TO TRANSPORT PT AT ABOUT 2:30PM.
[2021-10-23] MEDS: DAPTOmycin 500 MG in 0.9 % Sodium Chloride 50 ML 100 MG IV (13:50)
== END 2021-10-23 15:45 | disposition home health service (06) | DRG 270 ==
LOC: HO.ED 17:45 → HO.EDOVER 18:23 → HO.S3 10-15 14:21
PROVIDERS: Physician Assistant; Radiology Diagnostic Radiology; Admitting Provider Internal Medicine; Emergency Provider Emergency Medicine; Visit Provider Student in an Organized Health Care Education/Training Program
PROC: 02PY03Z Removal of Infusion Device from Great Vessel, Open Approach (ICD-10-PCS; principal; 2021-10-19 08:30)
DX: T80.211A Bloodstream infection due to central venous catheter, initial encounter (principal); A41.01 Sepsis due to Methicillin susceptible Staphylococcus aureus; K85.90 Acute pancreatitis without necrosis or infection, unspecified; I44.1 Atrioventricular block, second degree; M16.11 Unilateral primary osteoarthritis, right hip; C14.0 Malignant neoplasm of pharynx, unspecified; Z86.718 Personal history of other venous thrombosis and embolism; Z20.822 Contact with and (suspected) exposure to COVID-19; Z79.01 Long term (current) use of anticoagulants; Z79.899 Other long term (current) drug therapy; Z66 Do not resuscitate
CPT/HCPCS: 0241U; 36415; 36573; 36590; 70450; 71045; 73502; 73700; 74177; 80048; 80076; 80202; 81001; 82272; 82565; 83605; 83690; 83735; 85025; 85027; 85610; 85652; 86140; 87040; 87077; 87147; 87186; 87205; 87635; 93005; 93306; 96361; 96365; 96366; 96367; 96375; 97116; 97162; 99152; 99153; 99285; 99291; C1751; C1769; C1788; J0690; J0878; J2270; J2543; J3370; J3475; Q9967

== ENCOUNTER 2021-10-30 15:37 | Outpatient (REF) | payer MEDICARE, MEDICAID, SELFPAY ==
[2021-10-30 17:49] LABS: MANUAL DIFF FLAG NO
[2021-10-30 17:53] LABS: Basophils Absolute Auto 0.1 X10*3/uL (0.0-0.2); Basophils Percent Auto 0.8 % (0-2); Eosinophils Absolute Auto 0.1 X10*3/uL (0.0-0.4); Eosinophils Percent Auto 1.5 % (0-4); Hematocrit 32.4 % (42.0-52.0); Hemoglobin 10.4 g/dl (14.0-18.0); Imm Gran Abs Auto 0.02 X10*3/uL (0.00-0.03); Imm Gran Pct Auto 0.3 % (0.0-0.4); Lymphocytes Absolute Auto 0.9 X10*3/uL (1.2-4.9); Lymphocytes Percent Auto 14.8 % (20-40); Mean Corpuscular HGB Conc 32.1 g/dl (31.0-36.0); Mean Corpuscular Hemoglobin 31.7 pg (27.0-33.0); Mean Corpuscular Volume 98.8 fL (80.0-98.0); Mean Platelet Volume 10.8 fL (9.4-12.4); Monocytes Absolute Auto 0.8 X10*3/uL (0.1-1.2); Monocytes Percent Auto 12.6 % (2-11); Neutrophils Absolute Auto 4.2 x10*3/uL (2.0-8.3); Platelet Count 212 X10*3/uL (160-400); Red Blood Count 3.28 X10*6/uL (4.60-5.80); Red Cell Distribution Width 12.2 % (11.0-16.0)
[2021-10-30 18:03] LABS: Alanine Aminotransferase 15 U/L (0-40); Albumin Level 3.3 g/dL (3.5-5.0); Alkaline Phosphatase 73 U/L (39-117); Anion Gap 11 (12-20); Aspartate Amino Transferase 18 U/L (5-37); Bilirubin Total 0.5 mg/dL (0.0-1.0); Blood Urea Nitrogen 18 mg/dL (9-16); Calcium 8.8 mg/dL (8.4-10.2); Carbon Dioxide 32 mmol/L (22-29); Chloride 101 mmol/L (96-108); Estimated Glomerular Filt Rate > 60; Glucose Random 90 mg/dL (60-115); Potassium 4.6 mmol/L (3.3-5.1); Sodium 139 mmol/L (135-145); Total Protein 6.6 g/dL (6.5-8.0)
== END 2021-10-30 15:38 | disposition home or self-care (01) ==
LOC: HO.HVNA 15:37
PROVIDERS: Visit Provider Internal Medicine
DX: R78.81 Bacteremia (principal)
CPT/HCPCS: 80053; 85025

== ENCOUNTER 2021-11-06 13:30 | Outpatient (REF) | payer MEDICARE, MEDICAID, SELFPAY ==
[2021-11-06 16:34] LABS: MANUAL DIFF FLAG NO
[2021-11-06 16:41] LABS: Basophils Percent Auto 0.5 % (0-2); Eosinophils Absolute Auto 0.1 X10*3/uL (0.0-0.4); Hematocrit 30.7 % (42.0-52.0); Hemoglobin 9.8 g/dl (14.0-18.0); Imm Gran Abs Auto 0.02 X10*3/uL (0.00-0.03); Imm Gran Pct Auto 0.3 % (0.0-0.4); Lymphocytes Absolute Auto 1.1 X10*3/uL (1.2-4.9); Lymphocytes Percent Auto 18.9 % (20-40); Mean Corpuscular HGB Conc 31.9 g/dl (31.0-36.0); Mean Corpuscular Volume 97.2 fL (80.0-98.0); Mean Platelet Volume 10.3 fL (9.4-12.4); Monocytes Absolute Auto 0.8 X10*3/uL (0.1-1.2); Monocytes Percent Auto 12.8 % (2-11); Neutrophils Percent Auto 65.5 % (45-73); Platelet Count 169 X10*3/uL (160-400); Red Blood Count 3.16 X10*6/uL (4.60-5.80); Red Cell Distribution Width 12.2 % (11.0-16.0)
[2021-11-06 16:48] LABS: Anion Gap 14 (12-20); Blood Urea Nitrogen 20 mg/dL (9-16); Calcium 8.4 mg/dL (8.4-10.2); Carbon Dioxide 22 mmol/L (22-29); Chloride 104 mmol/L (96-108); Estimated Glomerular Filt Rate > 60; Glucose Random 95 mg/dL (60-115); Potassium 4.2 mmol/L (3.3-5.1); Sodium 136 mmol/L (135-145)
== END 2021-11-06 13:31 | disposition home or self-care (01) ==
LOC: HO.HMGCLNP 13:30
PROVIDERS: Visit Provider Internal Medicine
DX: R78.81 Bacteremia (principal)
CPT/HCPCS: 80048; 82550; 85025

== ENCOUNTER 2021-11-13 13:11 | Outpatient (REF) | payer MEDICARE, MEDICAID, SELFPAY ==
[2021-11-13 14:00] LABS: Basophils Percent Auto 0.6 % (0-2); Eosinophils Absolute Auto 0.2 X10*3/uL (0.0-0.4); Eosinophils Percent Auto 2.2 % (0-4); Hematocrit 29.8 % (42.0-52.0); Hemoglobin 9.7 g/dl (14.0-18.0); Imm Gran Abs Auto 0.03 X10*3/uL (0.00-0.03); Imm Gran Pct Auto 0.4 % (0.0-0.4); Lymphocytes Absolute Auto 0.8 X10*3/uL (1.2-4.9); Lymphocytes Percent Auto 11.9 % (20-40); MANUAL DIFF FLAG NO; Mean Corpuscular HGB Conc 32.6 g/dl (31.0-36.0); Mean Corpuscular Hemoglobin 31.4 pg (27.0-33.0); Mean Corpuscular Volume 96.4 fL (80.0-98.0); Mean Platelet Volume 9.9 fL (9.4-12.4); Monocytes Absolute Auto 0.6 X10*3/uL (0.1-1.2); Monocytes Percent Auto 8.3 % (2-11); Neutrophils Absolute Auto 5.2 x10*3/uL (2.0-8.3); Neutrophils Percent Auto 76.6 % (45-73); Platelet Count 171 X10*3/uL (160-400); Red Blood Count 3.09 X10*6/uL (4.60-5.80); Red Cell Distribution Width 12.7 % (11.0-16.0); White Blood Count 6.8 X10*3/uL (4.8-10.8)
[2021-11-13 14:39] LABS: Anion Gap 11 (12-20); Blood Urea Nitrogen 16 mg/dL (9-16); Calcium 8.6 mg/dL (8.4-10.2); Carbon Dioxide 25 mmol/L (22-29); Chloride 108 mmol/L (96-108); Estimated Glomerular Filt Rate > 60; Glucose Random 105 mg/dL (60-115); Sodium 140 mmol/L (135-145)
== END 2021-11-13 13:12 | disposition home or self-care (01) ==
LOC: HO.HMGCLNP 13:11
PROVIDERS: Visit Provider Internal Medicine
DX: R78.81 Bacteremia (principal)
CPT/HCPCS: 80048; 82550; 85025

== ENCOUNTER 2021-12-18 16:53 | Emergency (ER) | payer OTHER, MEDICARE, MEDICAID, SELFPAY ==
--- NOTE | ~2021-12-18 | US_ITS ---
EXAMINATION: SOFT TISSUES OF LEFT SHOULDER CLINICAL INFORMATION: Pain questionable lipoma COMPARISON: Right shoulder TECHNIQUE: Targeted sonographic evaluation of left shoulder mass. FINDINGS: Targeted sonographic evaluation of left shoulder area of pain reveals heterogeneous mass measured 5.1 x 2.3 x 4.9 cm with vascular flow in the area of concern. The mass is not a lipoma. Clinical correlation with MRI is recommended. US/US extremity nonvascular perales IMPRESSION: Heterogeneous mass in the area of consolidative in the left shoulder. Correlate with MRI
--- NOTE | ~2021-12-18 | XR_ITS ---
EXAMINATION: XR SHOULDER, LEFT CLINICAL INFORMATION: Pain and swelling COMPARISON: None TECHNIQUE: 3 plain film views of the left shoulder. FINDINGS: Humeral head is well-seated within the glenoid fossa. Hypertrophic degenerative changes in the acromioclavicular joint. I do not appreciate any acute fracture or dislocation on these images. Visualized left ribs unremarkable. XR/XR shoulder LT min 2V IMPRESSION: Mild degenerative changes but no acute bony abnormality
--- NOTE | 2021-12-18 17:26 | ED_ITS ---
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 Patient denies any trauma there is soft tissue swelling in front of the left shoulder Related Data Home Medications Medication Instructions Recorded Confirmed apixaban 2.5 mg tablet (Eliquis) 1 tab PO BID 10/14/21 10/14/21 cyanocobalamin (vitamin B-12) 1,000 mcg PO DAILY 10/14/21 10/14/21 1,000 mcg tablet hydroxyzine HCl 10 mg tablet 10 mg PO QID 10/14/21 10/14/21 riboflavin (vitamin B2) 100 mg 100 mg PO DAILY 10/14/21 10/14/21 tablet tramadol 50 mg tablet 50 mg PO TID PRN 10/14/21 10/14/21 Previous Rx's Medication Instructions Recorded daptomycin 500 mg intravenous 500 mg IV Q24H #22 ea 10/22/21 solution oxycodone 5 mg tablet 5 mg PO BID PRN #20 tab MDD 15 mg 10/23/21 walker (Ultra-Light Rollator) #1 ea 10/23/21 Allergies Allergy/AdvReac Type Severity Reaction Status Date / Time No Known Allergies Allergy Verified 10/14/21 12:58 [No Known Allergies*] Review of Systems Review of Systems: Yes all other systems are reviewed and are negative [facility] Past Medical History Medical History Deep vein thrombosis, upper right extremity Osteoarthritis of right hip Staphylococcus aureus bacteremia Throat cancer Family History Family History Father CAD (coronary artery disease) Mother CAD (coronary artery disease) Social History Social History Household Members: Significant Other Housing: Apartment Do you presently have visiting nurse or other home services: No Alcohol intake: former Patient Tobacco Use Status: Former Tobacco user Advance Directives: No Advance Directives Information Provided: No service: Yes Current occupational status: disabled Physical Exam Vital Signs: Vital Signs: Last Vital Signs Temp 99.1 F 12/18/21 22:02 Pulse 98 12/18/21 22:02 Resp 20 12/18/21 22:02 BP 173/72 H 12/18/21 22:02 Pulse Ox 97 12/18/21 22:02 BMI result Body Mass Index 26.6 Const: General: comfortable and no acute distress Nutritional Appearance: cachectic Orientation/consciousness: patient oriented x3 HEENT: Head: Yes normal to inspection Face and sinus: Yes normal facial exam Eyes: General: appearance normal, both eyes and all related structures Neck: Neck: Yes normal visual inspection and Yes full ROM Resp: Effort & Inspection: normal respiratory effort Auscultation: clear to auscultation bilaterally, no crackles and no rales Cardio: Palpation: normal PMI Rate: regular rate Rhythm: regular rhythm Heart sounds: S1 normal heart sound present and S2 normal heart sound present Neuro: General: patient oriented x3 and no focal motor deficits Extrem: General: Yes normal to inspection Right upper extremity: normal to inspection and full ROM Shoulder/upper arm images: 1. 3 x 3 cm soft tissue swelling fluctuant nontender Needle aspiration revealed only serosanguineous fluid MDM - Extremity (Nontraumatic) MDM Narrative Medical decision making narrative: Patient with atraumatic left shoulder pain with soft tissue swelling likely lipoma will get the x-ray and ultrasound Ultrasound showed vascular lesion etiology not very clear, x-ray of the shoulder negative. Patient labs are stable except the CRP was elevated secondary to inflammation. At this time there is no signs of infection needle aspiration was attempted only serosanguineous fluid was drained. Patient advised to follow-up with orthopedics Lab Data Attestation: I reviewed the patient's lab results. Result diagrams: 12/18/21 20:19 12/18/21 20:19 Labs: Lab Results 12/18/21 12/18/21 Range/Units 20:19 20:19 WBC 9.9 (4.8-10.8) X10*3/uL RBC 2.89 L (4.60-5.80) X10*6/uL Hgb 8.8 L (14.0-18.0) g/dl Hct 27.2 L (42.0-52.0) % MCV 94.1 (80.0-98.0) fL MCH 30.4 (27.0-33.0) pg MCHC 32.4 (31.0-36.0) g/dl RDW 13.7 (11.0-16.0) % Plt Count 312 D (160-400) X10*3/uL MPV 8.7 L (9.4-12.4) fL Immature Gran % (Auto) 0.4 (0.0-0.4) % Neut % (Auto) 82.9 H (45-73) % Lymph % (Auto) 6.0 L (20-40) % [place] % (Auto) 10.4 (2-11) % Eos % (Auto) 0.1 (0-4) % Baso % (Auto) 0.2 (0-2) % Lymph # (Auto) 0.6 L (1.2-4.9) X10*3/uL [place] # (Auto) 1.0 (0.1-1.2) X10*3/uL Eos # (Auto) 0.0 (0.0-0.4) X10*3/uL Baso # (Auto) 0.0 (0.0-0.2) X10*3/uL Abs Immat Gran (auto) 0.04 H (0.00-0.03) X10*3/uL Absolute Neuts (auto) 8.2 (2.0-8.3) x10*3/uL Absolute Nucleated RBC 0.000 (0.0-0.012) X10*3/uL Nucleated RBC % (auto) 0.0 (0.0-0.2) /100WBC Sodium 137 (135-145) mmol/L Potassium 5.3 H D (3.3-5.1) mmol/L Chloride 104 (96-108) mmol/L Carbon Dioxide 21 L (22-29) mmol/L Anion Gap 17 (12-20) BUN 19 H (9-16) mg/dL Creatinine 0.79 (0.5-1.4) mg/dL Estim Creat Clear Calc 70.8 Estimated GFR > 60 Random Glucose 101 (60-115) mg/dL Calcium 8.8 (8.4-10.2) mg/dL C-Reactive Protein 30.93 H (< or = 0.50) mg/dL Discharge Plan Discharge Clinical Impression: Arthritis of left shoulder region Patient Disposition: Home, Self-Care Instructions: Osteoarthritis (ED) Additional Instructions: Continue your pain medication and follow up with orthopedic Left arm sling for support Prescriptions: No Action hydroxyzine HCl 10 mg tablet 10 mg PO QID 0RF Eliquis 2.5 mg tablet 1 tab PO BID 0RF riboflavin (vitamin B2) 100 mg Tablet 100 mg PO DAILY 0RF cyanocobalamin (vitamin B-12) 1,000 mcg Tablet 1,000 mcg PO DAILY 0RF tramadol 50 mg Tablet 50 mg PO TID PRN (Reason: Pain) 0RF daptomycin 500 mg recon soln 500 mg IV Q24H Qty: 22 0RF Rx Instructions: administer over 30 mins (DME) Ultra-Light Rollator Misc See Rx Instructions .Route Qty: 1 0RF Rx Instructions: As directed oxycodone 5 mg tablet 5 mg PO BID MDD 15 mg PRN (Reason: pain (scale score 7-10)) Qty: 20 0RF Referrals: Bony Ortiz MD [Physician] - 1 week
[2021-12-18 17:27] VITALS: BP 150/68; BP 154/68; PULSE 103; PULSE 96; RESP 18; TEMP 37.1; O2SAT 97; O2SAT 98; BMI 26.6
[2021-12-18 20:35] LABS: MANUAL DIFF FLAG NO
[2021-12-18 20:36] LABS: Basophils Percent Auto 0.2 % (0-2); Eosinophils Percent Auto 0.1 % (0-4); Hematocrit 27.2 % (42.0-52.0); Hemoglobin 8.8 g/dl (14.0-18.0); Imm Gran Abs Auto 0.04 X10*3/uL (0.00-0.03); Imm Gran Pct Auto 0.4 % (0.0-0.4); Lymphocytes Absolute Auto 0.6 X10*3/uL (1.2-4.9); Mean Corpuscular HGB Conc 32.4 g/dl (31.0-36.0); Mean Corpuscular Hemoglobin 30.4 pg (27.0-33.0); Mean Corpuscular Volume 94.1 fL (80.0-98.0); Mean Platelet Volume 8.7 fL (9.4-12.4); Monocytes Percent Auto 10.4 % (2-11); Neutrophils Absolute Auto 8.2 x10*3/uL (2.0-8.3); Neutrophils Percent Auto 82.9 % (45-73); Platelet Count 312 X10*3/uL (160-400); Red Blood Count 2.89 X10*6/uL (4.60-5.80); Red Cell Distribution Width 13.7 % (11.0-16.0); White Blood Count 9.9 X10*3/uL (4.8-10.8)
[2021-12-18 20:52] LABS: Anion Gap 17 (12-20); Blood Urea Nitrogen 19 mg/dL (9-16); C Reactive Protein 30.93 mg/dL (< or = 0.50); Calcium 8.8 mg/dL (8.4-10.2); Carbon Dioxide 21 mmol/L (22-29); Chloride 104 mmol/L (96-108); Creatinine Clr Calc Pharmacy 70.8; Estimated Glomerular Filt Rate > 60; Glucose Random 101 mg/dL (60-115); Potassium 5.3 mmol/L (3.3-5.1); Sodium 137 mmol/L (135-145)
[2021-12-18 22:02] VITALS: BP 173/72; PULSE 98; RESP 20; TEMP 37.3; O2SAT 97
--- NOTE | 2021-12-18 22:12 | PC.NURSE ---
Left side immobilizer placed as directed by Dr Mcnair .Pt juan antonio well
== END 2021-12-19 00:29 | disposition home or self-care (01) ==
PROVIDERS: Emergency Provider Internal Medicine
DX: M19.012 Primary osteoarthritis, left shoulder (principal); M25.512 Pain in left shoulder; C14.0 Malignant neoplasm of pharynx, unspecified; Z86.718 Personal history of other venous thrombosis and embolism; Z79.01 Long term (current) use of anticoagulants; Z92.21 Personal history of antineoplastic chemotherapy
CPT/HCPCS: 36415; 73030; 76882; 80048; 85025; 86140; 99284

== ENCOUNTER 2022-03-06 11:10 | Emergency (ER) | payer OTHER, MEDICARE, MEDICAID, SELFPAY ==
--- NOTE | ~2022-03-06 | CT_ITS ---
EXAMINATION: CT HEAD WITHOUT CONTRAST CLINICAL INFORMATION: Head trauma status post fall, rule out intracranial abnormality. COMPARISON: 10/17/[address] scan. TECHNIQUE: Contiguous axial imaging was performed from the skull base to vertex without intravenous administration of contrast. Coronal and sagittal reformatted images were obtained. This CT examination was performed using dose optimization techniques as appropriate, variously including the following: *Automated exposure control *Adjustment of mA and/or kV according to patient size (this includes techniques or standardized protocols for targeted exams where dose is matched to indication/reason for exam; i.e. extremities or head) *Use of iterative reconstruction technique DLP: 712.60 mGy-cm FINDINGS: There is mild widening of the cortical sulci and associated ventriculomegaly. The lateral ventricles are symmetrical. The third and fourth ventricles are in their normal midline position. The basilar and prepontine cisterns are unremarkable. There is no acute intra or extracerebral abnormality. There is no mass effect or midline shift. Midline posterior parietal small subgaleal hematoma and superjacent subcutaneous hematoma without underlying abnormality. Sections through the bony calvarium are unremarkable. The orbits are intact. The paranasal sinuses are clear. The mastoid air cells are clear. Mild mid nasal septal deviation, apex the right. CT/CT head/brain wo con IMPRESSION: 1. No acute intracranial pathology. 2. Small midline posterior parietal subgaleal hematoma and overlying mild subcutaneous hematoma without significant underlying abnormality. Correlate with physical exam.
--- NOTE | ~2022-03-06 | CT_ITS ---
EXAMINATION: CT CERVICAL SPINE WITHOUT CONTRAST CLINICAL INFORMATION: Neck pain status post fall. COMPARISON: None TECHNIQUE: Multiple axial images of the cervical spine were obtained without the administration of intravenous contrast. Coronal and sagittal reformatted images were obtained. This CT examination was performed using dose optimization techniques as appropriate, variously including the following: *Automated exposure control *Adjustment of mA and/or kV according to patient size (this includes techniques or standardized protocols for targeted exams where dose is matched to indication/reason for exam; i.e. extremities or head) *Use of iterative reconstruction technique DLP: 350.25 mGy-cm FINDINGS: There is normal cervical lordosis and spinal alignment. Mild mid cervical dextroscoliosis. Severe degenerative disc disease and partial osseous fusion is seen at C5-C6. Moderate to severe degenerative disc disease is seen at C6-C7. Mild to moderate degenerative changes are seen in the remainder of the cervical spine with prominent osteophyte formation at C4-C5. The odontoid process is intact with moderate articular degenerative changes. The neural foramina are patent. Mild to moderate multilevel bilateral facet arthropathy is seen. The spinous processes show no acute fracture. The soft tissues are unremarkable. No lymphadenopathy. The thyroid gland is unremarkable. The lung apices are clear. CT/CT cervical spine wo con IMPRESSION: Multilevel degenerative changes as detailed above without acute osseous abnormality.
[2022-03-06 10:59] VITALS: BP 147/80; BP 154/56; PULSE 80; PULSE 94; RESP 18; TEMP 36.7; O2SAT 97; O2SAT 98; BMI 14.6
--- NOTE | 2022-03-06 11:14 | ED_ITS ---
HPI - Fall General Chief Complaint: Fall Stated Complaint: HEAD PAIN S/P FALL OUTSIDE W/LAC BACK OF HEAD Time Seen by Provider: 03/06/22 11:13 Source: patient Mode of arrival: ambulatory History of Present Illness HPI Narrative: 81-year-old male with a past medical history of throat CA, RUE DVT discontinued on Eliquis 2 months ago, osteoarthritis, presenting to the ED complaining of head injury s/p mechanical trip and fall [employer]. States was leaving dress store when left ankle gave out causing patient to fall and hit head, denies LOC. admits left ankle gives out commonly, denies other symptoms prior to fall including headache/lightheadedness/CP/SOB. Reports mild headache at present. Denies neck pain, back pain, nausea, vomiting, vision changes, CP/SOB, abdominal pain. Denies taking anticoagulation per EMS initially patient could not remember year or president MD complaint: fall Onset (ago): minute(s) Related Data Home Medications Medication Instructions Recorded Confirmed apixaban 2.5 mg tablet (Eliquis) 1 tab PO BID 10/14/21 10/14/21 cyanocobalamin (vitamin B-12) 1,000 mcg PO DAILY 10/14/21 10/14/21 1,000 mcg tablet hydroxyzine HCl 10 mg tablet 10 mg PO QID 10/14/21 10/14/21 riboflavin (vitamin B2) 100 mg 100 mg PO DAILY 10/14/21 10/14/21 tablet tramadol 50 mg tablet 50 mg PO TID PRN Pain 10/14/21 10/14/21 Previous Rx's Medication Instructions Recorded daptomycin 500 mg intravenous 500 mg IV Q24H #22 ea 10/22/21 solution oxycodone 5 mg tablet 5 mg PO BID PRN pain (scale score 10/23/21 7-10) #20 tabs walker (Ultra-Light Rollator) #1 ea 10/23/21 Allergies Allergy/AdvReac Type Severity Reaction Status Date / Time No Known Allergies Allergy Verified 10/14/21 12:58 [No Known Allergies*] Review of Systems Review of Systems: Constitutional: No Fever, No Chills,No Fatigue, No Malaise ENT/Mouth: No Ear Pain, No Nasal Congestion, No Sinus Pain, No Hoarseness, No sore throat, No Rhinorrhea, No Swallowing Difficulty Eyes: No Eye Pain, No Swelling, No Redness, No Vision Changes Cardiovascular: No Chest Pain, No SOB, No Edema, No Palpitations Respiratory: No Cough, No Sputum, No Dyspnea Gastrointestinal: No Nausea, No Vomiting, No Diarrhea, No Constipation, No Abdominal pain Genitourinary: No Dysuria, No Urinary Frequency, No Hematuria, No Urinary Incontinence/retention, No Flank Pain Musculoskeletal: No joint pain, No Myalgias, No Joint Swelling Skin: + Hematoma, No rash Neuro: No Weakness, No Numbness, No Paresthesias, No Loss of Consciousness, No Dizziness, + Headache Yes all other systems are reviewed and are negative [facility] Past Medical History Attestation statement: The following information was validated with the patient. Medical History Deep vein thrombosis, upper right extremity Osteoarthritis of right hip Staphylococcus aureus bacteremia Throat cancer Family History Family History Father CAD (coronary artery disease) Mother CAD (coronary artery disease) Social History Social History Household Members: Significant Other Housing: Apartment Do you presently have visiting nurse or other home services: No Alcohol intake: former Patient Tobacco Use Status: Former Tobacco user Advance Directives: No Advance Directives Information Provided: Yes service: Yes Current occupational status: disabled Physical Exam Vital Signs: Vital Signs: Last Vital Signs Temp 98.1 F 03/06/22 10:59 Pulse 94 03/06/22 10:59 Resp 18 03/06/22 10:59 BP 154/56 H 03/06/22 10:59 Pulse Ox 97 03/06/22 10:59 O2 Del Method 03/06/22 10:59 BMI result Body Mass Index 14.6 Const: General: cooperative, healthy appearing and no acute distress Orientation/consciousness: oriented to person, oriented to place and oriented to time (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 No active bleeding. Head: Yes hematoma Ears: hearing grossly normal bilaterally General nose exam: Normal external nose present Face and sinus: Yes normal facial exam Throat: Yes posterior oropharynx normal, Yes tonsils normal, Yes uvula midline and No peritonsillar mass Eyes: General: appearance normal, both eyes and all related structures Pupils: Equal, round and reactive pupils present EOM: EOMs intact bilaterally Neck: Other: No midline cervical spinous tenderness/step-off or deformity Neck: Yes normal visual inspection, Yes full ROM, Yes no meningeal signs, Yes supple and No anterior neck swelling Chest: Chest palpation & inspection: normal inspection of the chest, no crepitus and no tenderness Resp: Effort & Inspection: normal respiratory effort and no respiratory distress Auscultation: clear to auscultation bilaterally Cardio: Rate: regular rate Heart sounds: S1 normal heart sound present and S2 normal heart sound present GI: Inspection: Yes normal to inspection Palpation (GI): Soft to palpation, nontender, no guarding and not rigid : General: Yes no CVA tenderness Back/Spine/Pelvis: Other: No midline thoracic/lumbar spinous tenderness/step-off or deformity Back: no CVA tenderness Skin: Rashes: no rashes Wounds: no wounds Neuro: General: oriented to person, oriented to place, oriented to time (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 No acute intracranial pathology. 2. Small midline posterior parietal subgaleal hematoma and overlying mild subcutaneous hematoma without significant underlying abnormality. Correlate with physical exam. CT cervical spine wo con IMPRESSION: Multilevel degenerative changes as detailed above without acute osseous abnormality. >> results discussed with patient including worrisome signs and symptoms and strict return precautions and need a close follow-up with PCP MDM - Fall MDM Narrative Medical decision making narrative: 81-year-old male with a past medical history of throat CA, RUE DVT discontinued on Eliquis 2 months ago, osteoarthritis, presenting to the ED complaining of head injury s/p mechanical trip and fall [employer]. On exam vital signs stable, NAD, A&Ox3, no focal neuro deficits, no midline spinous tenderness throughout, hematoma noted to posterior scalp. Concern for ICH versus fracture. Plan: Head/C-spine CT Differential Diagnosis Differential diagnosis: Likely fracture and concussion without loss of consciousness Medical Records Attestation: I reviewed the patient's medical records. Lab Data Attestation: I reviewed the patient's lab results. Discharge Plan Discharge Clinical Impression: Scalp hematoma, Fall Patient Disposition: Home, Self-Care Instructions: Fall Prevention for Older Adults (ED), Scalp Contusion in Adults (ED) Additional Instructions: Your head and C-spine CT showed a hematoma to the back of her head as well as degenerative changes of her spine. Ice your hematoma Take Tylenol as needed for pain If area begins to look infected, growths, becomes red, you nausea or vomiting, persistent headache please return to the emergency department Prescriptions: No Action hydroxyzine HCl 10 mg tablet 10 mg PO QID Eliquis 2.5 mg tablet 1 tab PO BID riboflavin (vitamin B2) 100 mg Tablet 100 mg PO DAILY cyanocobalamin (vitamin B-12) 1,000 mcg Tablet 1,000 mcg PO DAILY tramadol 50 mg Tablet 50 mg PO TID PRN (Reason: Pain) daptomycin 500 mg recon soln 500 mg IV Q24H Qty: 22 0RF Rx Instructions: administer over 30 mins (DME) Ultra-Light Rollator Misc See Rx Instructions .Route Qty: 1 0RF Rx Instructions: As directed oxycodone 5 mg tablet 5 mg PO BID MDD 15 mg PRN (Reason: pain (scale score 7-10)) Qty: 20 0RF Referrals: Sofiya Hill MD [Primary Care Provider] - 2 days
[2022-03-06 13:45] VITALS: BP 150/89; PULSE 86; RESP 17; O2SAT 98
== END 2022-03-06 14:09 | disposition home or self-care (01) ==
PROVIDERS: Emergency Provider Emergency Medicine; PCP Internal Medicine
DX: S00.03XA Contusion of scalp, initial encounter (principal); W01.0XXA Fall on same level from slipping, tripping and stumbling without subsequent striking against object, initial encounter; Y93.01 Activity, walking, marching and hiking; Y92.512 Supermarket, store or market as the place of occurrence of the external cause; Y99.8 Other external cause status; Z87.891 Personal history of nicotine dependence; Z85.819 Personal history of malignant neoplasm of unspecified site of lip, oral cavity, and pharynx
CPT/HCPCS: 70450; 72125; 99284

== ENCOUNTER 2024-09-04 20:41 | Emergency (ER) | payer OTHER, SELFPAY ==
[2024-09-04 20:58] VITALS: BP 142/68; BP 175/57; PULSE 62; RESP 18; TEMP 36.4; O2SAT 97; BMI 26.5
--- OUTSIDE RECORDS SUMMARY | 2024-09-04 21:22 | XMS_ITS | Encounter Summary ---
Author Name [facility] [place] Address [address] [place] [address] Care Team Providers Care Baby Registry Sales Consultant Name Role Phone PEARL MCGARRY Primary Care Provider Unavailabl e Insurance Providers: All historical and current Section Date Range: From patient's date of to the date document was created. This section includes the names of all active insurance providers for the patient. Insurance Provider Type of Coverage Plan Name Start of Policy Coverage End of Policy Coverage Group Number Member ID Insurance Provider's Telephone Number Policy Salcedo's Name Patient's Relationship to Policy Salcedo MEDICAID MEDICAID LUCAS SORENSEN Sep 08, 2019 MEDICAI D [id number] SANTHOSH GLASGOW PATIENT MEDICARE (WNR) MEDICARE (M) PART B Nov 06, 2012 PART B [id number] SANTHOSH GLASGOW PATIENT MEDICARE (WNR) MEDICARE (M) PART A Apr 08, 2003 PART A [id number] SANTHOSH GLASGOW PATIENT Selected Encounter This section includes the information on record at [place] for the Encounter. Date/Time Encounter Type Encounter Description Reason Pro vider Source Sep 10, 2023 02:31 PM Outpatient Encounter PRIMARY CARE/MEDICINE IHE Encounter Template Text not used by [place] Plan of Treatment: Future Appointments (+ 6 months) and Future Tests (+/- 45 days) The Plan of Treatment section includes future care activities for the patient from all [place] [facility]. This section includes future appointments and future orders which are active, pending or scheduled. Future Appointments This section includes appointments that were scheduled to occur 6 months from the date of the Encounter, up to a maximum of 20 appointments. The data comes from all [place] treatment facilities. Appointment Date/Time Appointment Type Appointme nt Facility Name Sep 18, 2023 10:00 AM AMBULATORY - MEDICINE [place] [facility] [place] [facility] Social History: Smoking Status (Most current) and Tobacco Use (All prior to encounter date) This section includes the most current, and the historical, smoking and tobacco- related health factors from the [place] facility where the Encounter took place. Current Smoking Status This section includes the most current smoking, or tobacco-related health factor, from the [place] facility where the Encounter took place. Date/Time Current Smoking Status Comment [facility] Mar 20, 2023 09:00 AM VA-TOBACCO FORMER USER [facility] [place] [facility] Tobacco Use History This section includes a history of the smoking, or tobacco-related health factors, that were collected on or before the date of the Encounter. The data comes from the [place] facility where the Encounter took place. Date/Time Smoking Status/Tobac co Use Comment Facility Mar 20, 2023 09:00 AM VA-TOBACCO QUIT 15 YRS OR MORE [facility] [place] [facility] May 28, 2021 01:00 PM VA-TOBACCO FORMER USER [facility] [place] [facility] May 28, 2021 01:00 PM VA-TOBACCO QUIT 15 YRS OR MORE [facility] [place] [facility] May 20, 2019 07:47 AM VA-TOBACCO FORMER USER [facility] [place] [facility] May 20, 2019 07:47 AM VA-TOBACCO QUIT 15 YRS OR MORE [facility] [place] [facility] January 12, 2018 08:29 AM QUIT TOBACCO USE 1-7 YEARS AGO [facility] [place] [facility] Mar 15, 2017 12:54 PM QUIT TOBACCO USE > 7 YEARS AGO [facility] [place] [facility] Oct 09, 2015 11:07 AM CURRENT SMOKER cigars [facility] [place] [facility] Oct 09, 2015 11:07 AM QUIT TOBACCO USE IN PAST YEAR [facility] Mar 31, 2008 02:54 PM QUIT TOBACCO USE > 7 YEARS AGO [facility] [place] [facility] Dec 01, 2007 10:42 AM V1-PT DECLINES REF TO TOBACCO CESS PRGM [facility] Dec 01, 2007 10:42 AM V1-PT DECLINES TOBACCO CESSATION MEDS [facility] Dec 01, 2007 10:42 AM V1-PT THINKING ABOUT QUIT TOBACCO USE [facility] [place] [facility] January 13, 2007 10:36 AM QUIT TOBACCO USE 1-7 YEARS AGO 5 or 6 [facility] [place] [facility] May 27, 2006 10:34 AM CURRENT SMOKER 1 cigar per day [facility] Jun 04, 2005 10:25 AM QUIT TOBACCO USE IN PAST YEAR 1 yr ago [facility] [place] [facility] Oct 10, 2004 08:01 AM HISTORY OF SMOKING 4 yrs ago [facility] Oct 10, 2004 08:01 AM QUIT TOBACCO USE 1-7 YEARS AGO 4 yrs [facility] Oct 10, 2004 08:01 AM QUIT TOBACCO USE IN PAST YEAR 4 yrs ago [facility] [place] [facility] Jul 22, 2003 02:24 PM CURRENT SMOKER smokes 5 small cigars daily [facility] [place] [facility] May 28, 2002 02:12 PM HISTORY OF [facility]MOKING [facility] [place] [facility] Feb 18[facility] 2002 02:36 PM QUIT TOBACCO USE IN PAST YEAR [facility] [place] May 19, 2001 02:29 PM CURRENT SMOKER chews cigars, does not smoke them but reports he shakes when he doesn''t chew on stogies. [facility] Encounter Notes: All associated encounter notes This section contains the clinical notes associated to the Encounter. Date/Time Encounter Note(s) Provider Source Sep 10, 2023 02:31 PM ADMINISTRATIVE NOT E: LOCAL TITLE: ADMINISTRATIVE NOTE STANDARD TITLE: ADMINISTRATIVE NOTE DATE OF NOTE: SEP 10, 2023@14:31 ENTRY DATE: SEP 10, 2023@14:31:11 AUTHOR: POONAM MENCHACA EXP COSIGNER: URGENCY: STATUS: COMPLETED Reminder call for your upcoming Primary Care Appointment and the need for preparations prior to your upcoming appt. [X] Location in [facility] [X] Fasting labs [ ] Lab work within 30 days [ ] Urine [ ] No Preparation Action taken: [ ] Called , left voice message [ ] Called , unable to leave voice mail [X] Spoke to /insurance healthcare consultant to remind them of upcoming appt/preparations Upcoming Appointments: 09/18/2023 10:00 CWM/NO/PACT 1 /gabrielle/ POONAM MENCHACA ADVANCED AUTOBODY TECHNICIAN Signed: 09/10/2023 14:34 POONAM MENCHACA [facility]
--- OUTSIDE RECORDS SUMMARY | 2024-09-04 21:22 | XMS_ITS ---
Author Name [place] Address [address] [place] [address] Care Team Providers Care Celery Tier Name Role Phone PEARL MCGARRY Primary Care [...] Patient's Relationship to Policy Salcedo MEDICAID MEDICAID [facility] ABHILASH EDU Sep 08, 2019 MEDICAI D [id number] SANTHOSH GLASGOW PATIENT MEDICARE (WNR) MEDICARE (M) PART B Nov 06, 2012 PART B [id number] SANTHOSH GLASGOW PATIENT MEDICARE (WNR) MEDICARE (M) PART A Apr 08, 2003 PART A [id number] SANTHOSH GLASGOW PATIENT Selected Encounter This section includes the information on record at [place] for the Encounter. 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 Date/Time Primary/Secondary Diagnosis Diagnosis Name Provider Source Sep 18, 2023 09:25 PM PRIMARY Malignant neoplasm of hypopharynx, unspecified TIAGO MUNOZ JAWED [place] [facility] [place] [facility] Sep 18, 2023 09:25 PM SECONDARY Encounter for immunization TIERRA FREITAS [facility] [place] [facility] Sep 18, 2023 09:25 PM SECONDARY Essential (primary) hypertension TIAGO MUNOZ JAWED [facility] [place] [facility] Sep 18, 2023 09:25 PM SECONDARY Pain in left shoulder TIAGO MUNOZ JAWED [facility] [place] [facility] Sep 18, 2023 09:25 PM SECONDARY Pain in right hip TIAGO MUNOZ JAWED [facility] [place] [facility] Plan of Treatment: Future Appointments (+ 6 months) and Future Tests (+/- 45 days) The Plan of Treatment section includes future care activities for the patient from all [place] [facility]. This section includes future appointments and future orders which are active, pending or scheduled. Future Appointments This section includes appointments that were scheduled to occur 6 months from the date of the Encounter, up to a maximum of 20 appointments. The data comes from all [place] treatment facilities. Appointment Date/Time Appointment Type Appointme nt Facility Name Mar 18, 2024 08:30 AM AMBULATORY - MEDICINE [place] [facility] [place] [facility] Vital Signs: All taken on the encounter date This section contains inpatient and outpatient Vital Signs collected on the date of the Encounter. Date/Time Temperature Pulse Blood Pressure Respiratory Rate SP02 Pain Height Weight Body Mass Index Source Sep 18, 2023 10:40 AM 145/71 mm[Hg] [place] [facility] [place] [facility] Sep 18, 2023 09:56 AM 98.3 F 57 /min 160/72 mm[Hg] 16 /min 95 % 7 185 lb 28 [place] [facility] [place] [facility] Immunizations: All administered on the encounter date This section contains immunizations associated to the Encounter. Immunization Series Date Issued Reaction Comments COVID-19 (MODERNA), MRNA, LN P-S, PF, 50 MCG/0.5 ML (AGES 12+ YEARS) 5 Sep 18, 2023 INFLUENZA, HIGH-DOSE, QUADRIVALENT Sep 18, 2023 Social History: Smoking Status (Most current) and Tobacco Use (All prior to encounter date) This section includes the most current, and the historical, smoking and tobacco- related health factors from the [place] facility where the Encounter took place. Current Smoking Status This section includes the most current smoking, or tobacco-related health factor, from the [place] facility where the Encounter took place. Date/Time Current Smoking Status Comment [facility] Mar 20, 2023 09:00 AM VA-TOBACCO [facility] Tobacco Use History This section includes a history of the smoking, or tobacco-related health factors, that were collected on or before the date of the Encounter. The data comes from the [place] facility where the Encounter took place. Date/Time Smoking Status/Tobac co Use Comment [facility] Mar 20, 2023 09:00 AM VA-TOBACCO QUIT 15 YRS OR MORE [facility] [place] [facility] May 28, 2021 01:00 PM VA-TOBACCO FORMER USER [facility] [place] [facility] May 28, 2021 01:00 PM VA-TOBACCO QUIT 15 YRS OR MORE [facility] [place] [facility] May 20, 2019 07:47 AM VA-TOBACCO FORMER USER [facility] [place] [facility] May 20, 2019 07:47 AM VA-TOBACCO QUIT 15 YRS OR MORE [facility] [place] [facility] January 12, 2018 08:29 AM QUIT TOBACCO USE 1-7 YEARS AGO [facility] [place] [facility] Mar 15, 2017 12:54 PM QUIT TOBACCO USE > 7 YEARS AGO [facility] [place] [facility] Oct 09, 2015 11:07 AM CURRENT SMOKER cigars [facility] [place] [facility] Oct 09, 2015 11:07 AM QUIT TOBACCO USE IN PAST YEAR [facility] [place] [facility] Mar 31, 2008 02:54 PM QUIT TOBACCO USE > 7 [facility] AGO [facility] Dec 01, 2007 10:42 AM V1-PT DECLINES REF TO TOBACCO CESS PRGM [facility] Dec 01, 2007 10:42 AM V1-PT DECLINES TOBACCO CESSATION MEDS [facility] Dec 01, 2007 10:42 AM V1-PT THINKING ABOUT QUIT TOBACCO USE [facility] January 13, 2007 10:36 AM QUIT TOBACCO USE 1-7 YEARS AGO 5 or 6 [facility] May 27, 2006 10:34 AM CURRENT SMOKER 1 cigar per day [facility] Jun 04, 2005 10:25 AM QUIT TOBACCO USE IN PAST YEAR 1 yr ago [facility] Oct 10, 2004 08:01 AM HISTORY OF SMOKING 4 yrs ago [facility] Oct 10, 2004 08:01 AM QUIT TOBACCO USE 1-7 YEARS AGO 4 yrs [facility] Oct 10, 2004 08:01 AM QUIT TOBACCO USE IN PAST YEAR 4 yrs ago [facility] Jul 22, 2003 02:24 PM CURRENT SMOKER smokes 5 small cigars daily [facility] May 28, 2002 02:12 PM HISTORY OF SMOKING quit 1975 [facility] Feb 18, 2002 02:36 PM QUIT TOBACCO USE IN PAST YEAR [facility] May 19, 2001 02:29 PM CURRENT SMOKER chews cigars, does not smoke them but reports he shakes when he doesn''t chew on stogies. [facility] Encounter Notes: All associated encounter notes This section contains the clinical notes associated to the Encounter. Date/Time Encounter Note(s) Provider Source Sep 18, 2023 10:48 AM PREVENTIVE MEDICINE NURSING NOTE: LOCAL TITLE: CLINICAL REMINDERS/NURSING STANDARD TITLE: PREVENTIVE MEDICINE NURSING NOTE DATE OF NOTE: SEP 18, 2023@10:48 ENTRY DATE: SEP 18, 2023@10:48:21 AUTHOR: TIERRA FREITAS EXP COSIGNER: URGENCY: STATUS: COMPLETED Homelessness/Food Insecurity Screen: In the past 2 months, have you been living in stable housing that you own, rent, or stay in as part of a household? Yes - Living in stable housing. Are you worried or concerned that in the next 2 months you may NOT have stable housing that you own, rent, or stay in as part of a household? No - Not worried about housing near future The reports the following: Within the past 12 months, you worried whether your food would run out before you got money to buy more. Never true Within the past 12 months, the food you bought just didn't last and you didn't have money to get more. Never true Falls & Incontinence Screen: Falls Screen: 1. One fall with no injury. Incontinence Screen No incontinence. Influenza Immunization: The patient was given the influenza VIS which lists the benefits and side effects of the vaccine and which reviews the risks of not receiving the flu vaccine. The VIS was reviewed with the patient and they were given an opportunity to ask questions. The patient was provided education on how to decrease the risk of influenza infection including social distancing and use of good hand hygiene. The patient denied any prior severe reaction to the flu vaccine or its components. The patient gave verbal consent to receive the vaccine. Influenza, High Dose, Quadrivalent (Fluzone - syringe) Administered: INFLUENZA, HIGH-DOSE, QUADRIVALENT Date Administered: Sep 18, 2023 10:00 Series: Complete Batteryman: SANOFI PASTEUR Lot: [id number] Exp Date: Mar 07, 2024 NDC: [id number] Admin Route/Site: INTRAMUSCULAR/LEFT DELTOID Dosage: 0.7mL Vaccine Information Statement(s): INFLUENZA(FLU) VACC(INACTIVATED OR RECOMBINANT)VIS Apr 13, 2021 (QATARI) Order By: Policy Administered By: Tierra Freitas COVID-19 Immunization: Moderna Monovalent (Spikevax) Administered: COVID-19 (MODERNA), MRNA, LNP-S, PF, 50 MCG/0.5 ML (AGES 12+ YEARS) Date Administered: Sep 18, 2023 10:00 Series: Series 5 Batteryman: MODERNA [employer] Lot: [id number] Exp Date: February 05, 2024 NDC: [id number] Admin Route/Site: INTRAMUSCULAR/LEFT DELTOID Dosage: 0.5mL Vaccine Information Statement(s): COVID-19 MRNA VACCINE (12+ YRS) VACCINE VIS Jun 26, 2023 (QATARI) Order By: Policy Administered By: Tierra Freitas Vaccine administered without complications. The patient was advised to remain in the facility for 15 minutes post vaccination. /gabrielle/ TIERRA FREITAS LPN License Practical Nurse Signed: 09/18/2023 10:50 TIERRA FREITAS [facility] Sep 18, 2023 10:42 AM PHYSICIAN NOTE: LOCAL TITLE: MD NOTE STANDARD TITLE: PHYSICIAN NOTE DATE OF NOTE: SEP 18, 2023@10:42 ENTRY DATE: SEP 18, 2023@10:42:39 AUTHOR: REY MUNOZ EXP COSIGNER: URGENCY: STATUS: COMPLETED Patient Name: PETER GLASGOW VITALS: Patient temperature: 98.3 F [36.8 C] (09/18/2023 09:56) Blood pressure: 145/71 (09/18/2023 10:40) Patient height: 68 in [172.7 cm] (11/16/2018 07:58) Patient weight: 185 lb [83.91 kg] (09/18/2023 09:56) Patient BMI: BMI: 28.2 Patient pulse: 57 (09/18/2023 09:56) Patient respiration: 16 (09/18/2023 09:56) Patient Pulse Oximetry: 95% (09/18/2023 09:56) Pain Ratin (09/18/2023 09:56) Active [facility] Medications: Active Outpatient Medications (including Supplies): Active Outpatient Medications Status 1) ACETAMINOPHEN 325MG TAB TAKE TWO TABLETS BY MOUTH ACTIVE EVERY 6 HOURS NEEDED FOR PAIN 2) CHOLECALCIF 25MCG (D3-1,000UNIT) TAB TAKE ONE TABLET ACTIVE BY MOUTH ONCE DAILY 3) CLOBETASOL PROPIONATE 0.05% CREAM APPLY A MODERATE ACTIVE AMOUNT TOPICALLY TWICE DAILY FOR ITCHING/RASH 4) COLCHICINE 0.6MG TAB TAKE 2 TABLETS AT ONSET BY MOUTH ACTIVE ONE TIME AND TAKE 1 TABLET ONE HOUR LATER ONE TIME FOR GOUT [MAY ONLY REPEAT COURSE ONCE EVERY TWO WEEKS][TOTAL OF TWO COURSES IN 30 DAYS][6 TABLETS PER 30 DAYS] 5) CYANOCOBALAMIN 500MCG TAB TAKE TWO TABLETS BY MOUTH ACTIVE ONCE DAILY (VITAMIN B12) 6) HYDROXYZINE HCL 10MG TAB TAKE ONE TABLET BY MOUTH ACTIVE THREE TIMES A DAY FOR ITCHING 7) LIDOCAINE 5% PATCH APPLY 1 PATCH TOPICALLY ONCE DAILY ACTIVE (LEAVE PATCH ON FOR 12 HOURS, THEN REMOVE PATCH) 8) SIMVASTATIN 20MG TAB TAKE ONE-HALF TABLET BY MOUTH ACTIVE EVERY DAY Remote Medications: No Active Remote Medications for this patient HPI: 83-year-old patient living alone after his partner 1 year ago he was in deep love with her still gets tearful as the anniversary is coming. Lives alone at home patient said most of the time he is driving outside he is very socialized. Patient said he gives his close to laundry outside they wash and fold it. Patient said he tried to do housecleaning himself Patient brought lab work from outside Outside blood work WBC 7.5 RBC 3.63,Hemoglobin 11.9 hematocrit 37.8 MCV 104 MCH 32 platelet count 143 Sodium 145 potassium 4.7 chloride 106 bicarb 27 anion gap 12 creatinine 1.2 EGFR 62 AST 21 ALT 17 bilirubin 0.5 TSH 1.16 total T4 5.4. Blood pressure slightly elevated patient does not want to be on blood pressure medication. Has been taking all of her medication he recently ordered patient does not take any colchicine he denies having any gout attack. Assessment/plan: Metastatic squamous cell cancer with recurrence patient is on palliative immunotherapy being followed by oncology . 2. Essential hypertension was offered medication for blood pressure patient declined 3. History of for right hip pain which got better but now he has pain in his left shoulder patient said he has been using some lotion on his shoulder that he got from the pharmacy does not remember the name states right hip pain got better left shoulder pain is under good control 3. Mild anemia remained stable 4. Hypercholesterolemia on simvastatin his lipid profile in the past has been okay 5. Abnormal gait using a cane 6. 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 Medication Reconciliation: Outpatient: Medication Reconciliation was attempted at this encounter, but unable to complete: Patient/Caregiver unable to confirm all the medications the patient is taking. HTN Assess for Elevated BP>=140/90: The patient declines the recommended changes in medications to improve blood pressure control. /gabrielle/ REY MUNOZ MD STAFF PHYSICIAN Signed: 09/18/2023 21:31 REY MUNOZ [facility]
--- OUTSIDE RECORDS SUMMARY | 2024-09-04 21:23 | XMS_ITS | Encounter Summary ---
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 Date/Time Encounter Type Encounter Description Reason Pro vider Source Jun 07, 2024 01:31 PM Outpatient Encounter PRIMARY CARE/MEDICINE IHE Encounter Template Text not used by [place] Plan of Treatment: Future Appointments (+ 6 months) and Future Tests (+/- 45 days) The Plan of Treatment section includes future care activities for the patient from all [place] treatmentfacilities. This section includes future appointments and future orders which are active, pending or scheduled. Active, Pending, and Scheduled Orders This section includes a listing of several types of active, pending, and scheduled orders, including clinic medications orders, diagnostic test orders, procedure orders and consult orders; where the start date of the order is 45 days before the date of the Encounter or 45 days after the date of theEncounter. The data comes from all [place] treatment facilities. Test Date/Time Test Type Test Details Facility Name Jun 04, 2024 12:00 AM Laboratory - Chemi stry Order BASIC METABOLIC PANEL (non-fasting) BLOOD (SST-SERUM) [facility] Jun 04, 2024 12:00 AM Laboratory - Chemi stry Order LIPID PANEL FASTING BLOOD (SST-SERUM) [facility] Jun 04, 2024 12:00 AM Laboratory - Chemi stry Order CBC AND DIFF (AUTO) BLOOD (LAV-BLOOD) [facility] Jun 04, 2024 12:00 AM Laboratory - Chemi stry Order BASIC METABOLIC PANEL (fasting) BLOOD (SST-SERUM) [facility] Jun 04, 2024 12:00 AM Laboratory - Chemi stry Order LIVER FUNCTION BLOOD (SST-SERUM) [facility] Social History: Smoking Status (Most current) and Tobacco Use (All prior to encounter date) This section includes the most current, and the historical, smoking and tobacco- related health factors from the [place] facility where the Encounter took place. Current Smoking Status This section includes the most current smoking, or tobacco-related health factor, from the [place] facility where the Encounter took place. Date/Time Current Smoking Status Comment Facil ity Mar 18, 2024 08:30 AM [place]-TOBACCO FORMER USER [facility] Tobacco Use History This section includes a history of the smoking, or tobacco-related health factors, that were collected on or before the date of the Encounter. The data comes from the [place] facility where the Encounter took place. Date/Time Smoking Status/Tobac co Use Comment Facility Mar 18, 2024 08:30 AM [place]-TOBACCO QUIT 15 YRS OR MORE [place] [facility] [place] [facility] Mar 20, 2023 09:00 AM VA-TOBACCO FORMER USER [place] [facility] [place] [facility] Mar 20, 2023 09:00 AM VA-TOBACCO QUIT 15 YRS OR MORE [place] [facility] [place] [facility] May 28, 2021 01:00 PM VA-TOBACCO FORMER USER [place] [facility] [place] [facility] May 28, 2021 01:00 PM VA-TOBACCO QUIT 15 YRS OR MORE [place] [facility] [place] [facility] May 20, 2019 07:47 AM VA-TOBACCO FORMER USER [place] [facility] [place] [facility] May 20, 2019 07:47 AM VA-TOBACCO QUIT 15 YRS OR MORE [place] [facility] [place] [facility] January 12, 2018 08:29 AM QUIT TOBACCO USE 1-7 YEARS AGO [place] [facility] [place] [facility] Mar 15, 2017 12:54 PM QUIT TOBACCO USE > 7 YEARS AGO [place] [facility] [place] [facility] Oct 09, 2015 11:07 AM CURRENT SMOKER cigars [place] [facility] [place] [facility] Oct 09, 2015 11:07 AM QUIT TOBACCO USE IN PAST YEAR [place] [facility] [place] [facility] Mar 31, 2008 02:54 PM QUIT TOBACCO USE > 7 YEARS AGO [place] [facility] [place] [facility] Dec 01, 2007 10:42 AM V1-PT DECLINES REF TO TOBACCO CESS PRGM [place] [facility] [place] [facility] Dec 01, 2007 10:42 AM V1-PT DECLINES TOBACCO CESSATION MEDS [place] [facility] [place] [facility] Dec 01, 2007 10:42 AM V1-PT THINKING ABOUT QUIT TOBACCO USE [place] [facility] [place] [facility] January 13, 2007 10:36 AM QUIT TOBACCO USE 1-7 YEARS AGO 5 or 6 [place] [facility] [place] [facility] May 27, 2006 10:34 AM CURRENT SMOKER 1 cigar per day [place] [facility] [place] [facility] Jun 04, 2005 10:25 AM QUIT TOBACCO USE IN PAST YEAR 1 yr ago [facility] Oct 10, 2004 08:01 AM HISTORY OF SMOKING 4 yrs ago [facility] Oct 10, 2004 08:01 AM QUIT TOBACCO USE 1-7 YEARS AGO 4 yrs [facility] Oct 10, 2004 08:01 AM QUIT TOBACCO USE IN PAST YEAR 4 yrs ago [facility] Jul 22, 2003 02:24 PM CURRENT SMOKER smokes 5 small cigars daily [facility] May 28, 2002 02:12 PM HISTORY OF SMOKING quit 1975 [facility] Feb 18, 2002 02:36 PM QUIT TOBACCO USE IN PAST YEAR [facility] May 19, 2001 02:29 PM CURRENT SMOKER chews cigars, does not smoke them but reports he shakes when he doesn''t chew on stogies. [facility] Encounter Notes: All associated encounter notes This section contains the clinical notes associated to the Encounter. Date/Time Encounter Note(s) Provider Source Jun 07, 2024 01:47 PM PRIMARY CARE NOTE: LOCAL TITLE: WALK-IN NOTE PRIMARY CARE (T) STANDARD TITLE: PRIMARY CARE NOTE DATE OF NOTE: JUN 07, 2024@13:47 ENTRY DATE: JUN 07, 2024@13:47:34 AUTHOR: GO HOUSER COSIGNER: URGENCY: STATUS: COMPLETED <====Click to Start Advanced Medical Support [place] presents to the Primary Care clinic with the following request: [ X ]Medication Renewal/Refill BY MAIL ACETAMINOPHEN TAB 325MG VITAMIN D3 (CHOLECALCIFEROL) TAB 25MCG CLOBETASOL PROPIONATE 0.05% CREAM,TOP 0.05% CYANOCOBALAMIN TAB 500MCG SIMVASTATIN TAB 20MG LIDOCAINE 5% PATCH PATCH 5% [ ]Consultation with Team RN [ ]Symptoms [ ]Other The [place] states they are: [ ]Waiting [ X ]Not Waiting No Walk in visit scheduled with PACT Nurse [ X ] At this encounter the 's demographics were verified. [ X ] At this encounter the 's Insurance information was verified. [ X ] At this encounter the below scheduled visits for the [place] were discussed and appointment reminder card was offered. Future appointments: 06/22/2024 10:30 CWM/NO/PACT EIGHT /gabrielle/ GO HOUSER AMSA Signed: 06/07/2024 13:59 Receipt Acknowledged By: 06/08/2024 11:42 /es/ PEARL MCGARRY D.O. PHYSICIAN 06/07/2024 14:06 /gabrielle/ MADYSON BERNARD, RN REGISTERED NURSE GO HOUSER [facility] Jun 07, 2024 01:31 PM ADMINISTRATIVE NOTE: LOCAL TITLE: ADMINISTRATIVE NOTE STANDARD TITLE: ADMINISTRATIVE NOTE DATE OF NOTE: JUN 07, 2024@13:31 ENTRY DATE: JUN 07, 2024@13:31:38 AUTHOR: GO HOUSER EXP COSIGNER: URGENCY: STATUS: COMPLETED AMSA SPOKE TO ON THE TELEPHONE AND INFORMED HIM OF UPCOMING APPT AND THAT LABWORK IS NEEDED. /gabrielle/ GO HOUSER AMSA Signed: 06/07/2024 13:40 GO HOUSER [facility]
--- OUTSIDE RECORDS SUMMARY | 2024-09-04 21:23 | XMS_ITS ---
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 Date/Time Encounter Type Encounter Description Reason Pro vider Source Oct 28, 2023 12:00 AM Outpatient Encounter EVENT (HISTORICAL) IHE Encounter Template Text not used by [place] Plan of Treatment: Future Appointments (+ 6 months) and Future Tests (+/- 45 days) The Plan of Treatment section includes future care activities for the [facility] [place] [facility] This section includes future appointments and future orders which are active, pending or scheduled. Future Appointments This section includes appointments that were scheduled to occur 6 months from the date of the Encounter, up to a maximum of 20 appointments. The data comes from all [place] treatment facilities. Appointment Date/Time Appointment Type Appointme nt Facility Name Mar 18, 2024 08:30 AM AMBULATORY - [facility]ICINE [facility] Social History: Smoking Status (Most current) and Tobacco Use (All prior to encounter date) This section includes the most current, and the historical, smoking and tobacco- related health factors from the [place] facility where the Encounter took place. Current Smoking Status This section includes the most current smoking, or tobacco-related health factor, from the [place] facility where the Encounter took place. Date/Time Current Smoking Status Comment [facility] Mar 20, 2023 09:00 AM VA-TOBACCO QUIT 15 YRS OR MORE [facility] Tobacco Use History This section includes a history of the smoking, or tobacco-related health factors, that were collected on or before the date of the Encounter. The data comes from the [place] facility where the Encounter took place. Date/Time Smoking Status/Tobac co Use Comment Facility Mar 20, 2023 09:00 AM VA-TOBACCO QUIT 15 YRS OR MORE [place] [facility] [place] [facility] May 28, 2021 01:00 PM VA-TOBACCO FORMER USER IN [facility] [place] [facility] May 28, 2021 01:00 PM VA-TOBACCO QUIT 15 YRS OR MORE IN [facility] [place] [facility] May 20, 2019 07:47 AM VA-TOBACCO FORMER USER IN [facility] [place] [facility] May 20, 2019 07:47 AM VA-TOBACCO QUIT 15 YRS OR MORE IN [facility] [place] [facility] January 12, 2018 08:29 AM QUIT TOBACCO USE 1-7 YEARS AGO [place] [facility] [place] [facility] Mar 15, 2017 12:54 PM QUIT TOBACCO USE > 7 YEARS AGO [facility] [place] [facility] Oct 09, 2015 11:07 AM CURRENT SMOKER cigars [facility] [place] [facility] Oct 09, 2015 11:07 AM QUIT TOBACCO USE IN PAST YEAR [facility] [place] [facility] Mar 31, 2008 02:54 PM QUIT TOBACCO USE > 7 YEARS AGO [facility] [place] [facility] Dec 01, 2007 10:42 AM V1-PT DECLINES REF TO TOBACCO CESS PRGM [facility] Dec 01, 2007 10:42 AM V1-PT DECLINES TOBACCO CESSATION MEDS [facility] Dec 01, 2007 10:42 AM V1-PT THINKING ABOUT QUIT TOBACCO USE [facility] [place] [facility] January 13, 2007 10:36 AM QUIT TOBACCO USE 1-7 YEARS AGO 5 or 6 [facility] May 27[facility] 2006 10:34 AM CURRENT SMOKER 1 cigar per day [facility] Jun 04, 2005 10:25 AM QUIT TOBACCO USE IN PAST YEAR 1 yr ago [facility] Oct 10, 2004 08:01 AM HISTORY OF SMOKING 4 yrs ago [facility] Oct 10, 2004 08:01 AM QUIT TOBACCO USE 1-7 YEARS AGO 4 yrs [facility] Oct 10, 2004 08:01 AM QUIT TOBACCO USE IN PAST YEAR 4 yrs ago [facility] [place] [facility] Jul 22, 2003 02:24 PM CURRENT SMOKER smokes 5 small cigars daily [facility] May 28, 2002 02:12 PM HISTORY OF SMOKING quit 1975 [facility] Feb 18, 2002 02:36 PM QUIT TOBACCO USE IN PAST YEAR [facility] [place] [facility] May 19, 2001 02:29 PM CURRENT SMOKER chews cigars, does not smoke them but reports he shakes when he doesn''t chew on stogies. [facility] Encounter Notes: All associated encounter notes This section contains the clinical notes associated to the Encounter. Date/Time Encounter Note(s) Provider Source Oct 28, 2023 12:00 AM NONVA NOTE: LOCAL TITLE: NON-VA OUTPATIENT NOTES STANDARD TITLE: NONVA NOTE DATE OF NOTE: OCT 28, 2023 ENTRY DATE: NOV 17, 2023@10:43:49 AUTHOR: NAOMI SANTO EXP COSIGNER: URGENCY: STATUS: COMPLETED VistA Imaging - Scanned Document SCANNED DOCUMENT SIGNATURE NOT REQUIRED Electronically Filed: 11/17/2023 by: NAOMI SHEPPARD [facility]
--- OUTSIDE RECORDS SUMMARY | 2024-09-04 21:23 | XMS_ITS ---
Author Name [facility] Organization [facility] [place] Address [address] [place] [address] Care Team Providers Care Painter Ski Edge Name Role Phone PEARL MCGARRY Primary Care [...] LUCAS SORENSEN Sep 08, 2019 MEDICAI D [id number] SANTHOSH CERVANTESHzael PATIENT MEDICARE (WNR) MEDICARE (M) PART B Nov 06, 2012 PART B [id number] SANTHOSH CERVANTES PATIENT MEDICARE (WNR) MEDICARE (M) PART A Apr 08, 2003 PART A [id number] SANTHOSH CERVANTESHazel PATIENT Selected Encounter This section includes the information on record at [place] for the Encounter. Date/Time Encounter Type Encounter Description Reason Pro vider Source Jun 22, 2024 08:43 AM Outpatient Encounter TELEPHONE PRIMARY CARE IHE Encounter Template Text not used by [place] Plan of Treatment: Future Appointments (+ 6 months) and Future Tests (+/- 45 days) The Plan of Treatment section includes future care activities for the patient from all [place] treatmentfacilities. This section includes future appointments and [...] of theEncounter. The data comes from all [place] treatment facilities. Test Date/Time Test Type Test Details Facility Name Jun 04, 2024 12:00 AM Laboratory - Chemi stry Order BASIC METABOLIC PANEL (non-fasting) BLOOD (SST-SERUM) [facility] Jun 04, 2024 12:00 AM Laboratory - Chemi stry Order LIPID PANEL FASTING BLOOD (SST-SERUM) [facility] Jun 04, 2024 12:00 AM Laboratory - Chemi stry Order BASIC METABOLIC PANEL (fasting) BLOOD (SST-SERUM) [facility] Jun 04, 2024 12:00 AM Laboratory - Chemi stry Order CBC AND DIFF (AUTO) BLOOD (LAV-BLOOD) [facility] Jun 04, 2024 12:00 AM Laboratory - Chemi stry Order LIVER FUNCTION BLOOD (SST-SERUM) [facility] Social History: Smoking Status (Most current) and Tobacco Use (All prior to encounter date) This section includes the most current, and the historical, smoking and tobacco- related health factors from the [place] facility where the Encounter took place. Current Smoking Status This section includes the most current smoking, or tobacco-related health factor, from the [place] facility where the Encounter took place. Date/Time Current Smoking Status Comment Facil ity Mar 18, 2024 08:30 AM AR-TOBACCO FORMER USER [facility] Tobacco Use History This section includes a history of the smoking, or tobacco-related health factors, that were collected on or before the date of the Encounter. The data comes from the [facility] where the Encounter took place. Date/Time Smoking Status/Tobac co Use Comment Facility Mar 18, 2024 08:30 AM VA-TOBACCO QUIT 15 YRS OR MORE [facility] [place] [facility] Mar 20, 2023 09:00 AM VA-TOBACCO FORMER USER [facility] [place] [facility] Mar 20, 2023 09:00 AM VA-TOBACCO QUIT 15 YRS OR MORE [facility] [place] [facility] May 28, 2021 01:00 PM VA-TOBACCO FORMER USER [facility] [place] [facility] May 28, 2021 01:00 PM VA-TOBACCO QUIT 15 YRS OR MORE [facility] [place] [facility] May 20, 2019 07:47 AM VA-TOBACCO FORMER USER [facility] [place] [facility] May 20, 2019 07:47 AM VA-TOBACCO QUIT 15 YRS OR MORE [facility] [place] [facility] January 12, 2018 08:29 AM QUIT TOBACCO USE 1-7 YEARS AGO [facility] [place] [facility] Mar 15, 2017 12:54 PM QUIT TOBACCO USE > 7 YEARS AGO [facility] [place] [facility] Oct 09, 2015 11:07 AM CURRENT SMOKER cigars [facility] [place] [facility] Oct 09, 2015 11:07 AM QUIT TOBACCO USE IN PAST YEAR [facility] [place] [facility] Mar 31, 2008 02:54 PM QUIT TOBACCO USE > 7 YEARS AGO [facility] [place] [facility] Dec 01, 2007 10:42 AM V1-PT DECLINES REF TO TOBACCO CESS PRGM [facility] [place] [facility] Dec 01, 2007 10:42 AM V1-PT DECLINES TOBACCO CESSATION MEDS [facility] [place] [facility] Dec 01, 2007 10:42 AM V1-PT THINKING ABOUT QUIT TOBACCO USE [facility] [place] [facility] January 13, 2007 10:36 AM QUIT TOBACCO USE 1-7 YEARS AGO 5 or 6 [facility] [place] [facility] May 27, 2006 10:34 AM CURRENT SMOKER 1 cigar per day [facility] [place] [facility] Jun 04, 2005 10:25 AM QUIT TOBACCO USE IN PAST YEAR 1 yr ago [facility] Oct 10, 2004 08:01 AM HISTORY OF SMOKING 4 yrs ago [facility] Oct 10, 2004 08:01 AM QUIT TOBACCO USE 1-7 YEARS AGO 4 yrs [facility] Oct 10, 2004 08:01 AM QUIT TOBACCO USE IN PAST YEAR 4 yrs ago [facility] Jul 22, 2003 02:24 PM CURRENT SMOKER smokes 5 small cigars daily [facility] May 28, 2002 02:12 PM HISTORY OF SMOKING quit 1974 [facility] Feb 18, 2002 02:36 PM QUIT TOBACCO USE IN PAST YEAR [facility] May 19, 2001 02:29 PM CURRENT SMOKER chews cigars, does not smoke them but reports he shakes when he doesn''t chew on stogies. [facility] Encounter Notes: All associated encounter notes This section contains the clinical notes associated to the Encounter. Date/Time Encounter Note(s) Provider Source Jun 22, 2024 08:43 AM NURSING NOTE: LOCAL TITLE: NURSING NOTE STANDARD TITLE: NURSING NOTE DATE OF NOTE: JUN 22, 2024@08:43 ENTRY DATE: JUN 22, 2024@08:44:01 AUTHOR: MADYSON BERNARD COSIGNER: URGENCY: STATUS: COMPLETED The following is copied from [facility] Portal. 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 Nadia Hernández Hematology/Oncology Shared Clinical Summary CHIEF COMPLAINT: Head/neck cancer LOCATION and STAGE: BOT; stage IV with lung involvement; now with localized recurrence in 05/2022 PATH: P16 positive metastatic squamous cell carcinoma right neck 02/2017 TREATMENT: Carbo/paclitaxel/cetuximab 04/01/2017 through 09/16/2017 (6 cycles) Pembrolizumab 09/27/2017 through 10/2021 (70 cycles) Pembrolizumab resumed 07/18/2022 INTENT OF TREATMENT: Palliation Interval History My nurse Jenny was with me during the encounter. The patient returns to clinic for followup. Since the last visit he has missed appointments with me and imaging studies. He is reluctant to have restaging imaging studies done. He wants to have Keytruda therapy. He reports right shoulder pain and dropping. He denies fever and chills. He denies chest pain and shortness of breath. Hematology/Oncology History Mr. Cervantes is a 83-year-old male with history of head and neck cancer who returns clinic for follow-up. Patient was initially diagnosed with squamous cell carcinoma of the base of the tongue with bulky right cervical adenopathy, left cervical adenopathy and the bilateral pulmonary nodules. Patient has never had lung biopsy in the past. The patient was treated with stage IV squamous cell carcinoma of basal tongue. Patient received carboplatin/paclitaxel/cetuxi mab from April 01, 2017 to September 16, 2015 for 6 cycles in total. Patient received pembrolizumab from September 27, 2017 to October 2021. Given that the patient developed progression disease, pembrolizumab was resumed on July 18, 2022. The patient tolerated treatment well except for diffuse pruritus. Review of Systems Constitutional: No weight loss, fever, chills, weakness or fatigue. Allergy/Immune: Denies any Eczema or hives Eyes: No visual loss, blurred vision, double vision or yellow sclera ENT: No hearing loss, sneezing, congestion, runny nose or sore throat. Right neck mass, painless. Respiratory: No shortness of breath, cough or sputum production. Cardiovascular: No chest pain, chest pressure or chest discomfort. No palpitations or pedal edema. Gastrointestinal: No anorexia, nausea, vomiting or diarrhea. No abdominal pain or blood in stool. Genitourinary: No burning micturition. No urinary frequency or incontinence. Neurologic: No headache, dizziness, syncope, numbness or tingling in the extremities. No change in bowel or bladder control. Seems he has issue with his gaits Musculoskeletal: right shoulder pain and dropping. Hematologic/Lymphatics: No bleeding or bruising. No painful lymph nodes. Endocrine: No reports of sweating. No cold or heat intolerance. No polyuria or polydipsia. Psychiatric: No depression or anxiety. Problem List/Past Medical History Ongoing Gout Head and neck cancer Hypertension Pruritus Procedure/Surgical History See HPI Social History Alcohol Use: Current. Frequency: 1-2 times per week. Tobacco Former smoker Allergies NKA Medications Inpatient NaCL 0.9% 500 mL, 500 mL, IV Infusion Pembrolizumab IVPB Home betamethasone topical dipropionate 0.05% cream, 1 application, Topically, 2 times a day, PRN cyanocobalamin 500 mcg oral tablet, 1000 mcg= 2 tablet, By Mouth, Daily Eliquis 5 mg oral tablet, 5 mg= 1 tablet, By Mouth, 2 times a day, 5 refills lidocaine-prilocaine 2.5%-2.5% topical cream, 1 application, Topically, Once prochlorperazine 5 mg oral tablet, 5 mg= 1 tablet, By Mouth, 3 times a day, PRN Performance Status Scale: ECOG 1 Pain: shoulder pain, chronic Physical Exam Vitals & Measurements T: 98.2 ?F HR: 60 (Peripheral) BP: 144/42 SpO2: 96% WT: 83.0 kg HEENT: NAD, No icterus or pallor, no oral ulcers NECK : Supple, right sided neck adenopathy CHEST : Clear to auscultation HEART : S1-S2 regular no murmurs rubs or gallops GI: Soft, nontender, No organomegaly , bowel sounds are present EXT : No edema SKIN: unremarkable NEURO: no significant neurologic deficits except for his gait and right shoulder dropping. Lab Results/Pathology Test Name Test Result Date/Time WBC 7.4 k/mm3 01/16/2024 13:22 EDT Hgb 11.0 Gm/dL 01/16/2024 13:22 EDT Platelet Count 128 k/mm3 01/16/2024 13:22 EDT Sodium 143 mmol/L 01/16/2024 13:22 EDT Potassium 4.2 mmol/L 01/16/2024 13:22 EDT Creatinine-Blood 1.36 mg/dL 01/16/2024 13:22 EDT Estimated GFR Creatinine 51 ML/MIN/1.73 M2 01/16/2024 13:22 EDT AST (SGOT) 35 units/L 01/16/2024 13:22 EDT ALT (SGPT) 21 units/L 01/16/2024 13:22 EDT TSH 1.12 uIU/mL 01/16/2024 13:22 EDT Free T4 1.13 ng/dL 01/16/2024 13:22 EDT Diagnostic Results (07/17/2023 09:[address] Chest W/ Contrast) Result type: CT Chest W/ Contrast Result date: July 17, 2023 9:49 EST FINDINGS: Skoog Machine Operator view findings, lines and tubes: None. Trachea and airways: Patent without evidence of tracheal or endobronchial lesion. Lungs and pleura: New small focus of airspace opacity in the right lower lobe (series 4 image 30). Previously seen right lower lobe nodule has resolved. Mild streaky opacity in the medial right lung base, likely due to scarring. New patchy opacity in the left lower lobe (series 4 image 80). No effusion or pneumothorax. Mediastinum and kimberli: No mass or hematoma. No mediastinal or hilar lymphadenopathy. No esophageal abnormality. Heart: Heart is normal in size. No pericardial effusion. Moderate coronary artery calcification. Aorta: Moderate vascular calcification but no aneurysm. Pulmonary arteries: Unchanged enlargement of the right main pulmonary artery. Linear filling defect in the interlobar pulmonary artery extending into the right middle and lower lobar branches and right lower lobe segmental branches. Additional peripheral linear filling defect in the left lower lobe pulmonary artery extending into segmental branches. Chest wall soft tissues: No acute abnormality. Refer to separately reported neck CT for description of cervical lymph nodes. Moderate bilateral gynecomastia. Diaphragm: Intact. Upper abdomen: Small hepatic cyst. Probable duodenal diverticulum. Vascular calcifications. Bones: No acute abnormality. IMPRESSION: 1. Bilateral pulmonary emboli involving lobar and segmental branches, no evidence of right heart strain. Given the appearance these may be subacute. 2. New small foci of airspace opacity in the right lower lobe and left lower lobe, likely infectious or inflammatory. 3. Previously seen solid right lower lobe nodule has resolved. 4. CT soft tissue neck was also performed and will be reported separately. (07/17/2023 09:[address] Soft Tissue Neck W/ Contrast) Result type: CT Soft Tissue Neck W/ Contrast Result date: July 17, 2023 9:49 EST FINDINGS: Skoog Machine Operator View Findings, Lines and Tubes: None. Intracranial structures: Visualized portions are unremarkable. Orbits: Visualized portions are unremarkable. Paranasal sinuses and mastoids: Visualized portions are clear. Mucosal surfaces: There is again chronic volume loss involving the common base with a midline cleft which is similar to the previous exam. No definite recurrent mass is identified. Superficial and deep neck spaces: Loss of the fat planes again seen in the right neck with thinning of the subcutaneous fat, compatible with posttreatment changes. 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 This is similar in extent compared to the previous exam, though some areas appear to have increased bulky heterogeneous enhancement for example image 36 of series 3 is slightly increased convex border, possibly increased in this area. Bulky mario disease at level 2A on the right abutting the atrophic submandibular gland has increased in size to approximately 3.0 x 2.2 cm compared to approximately 2.7 x 1.8 cm previously. No contralateral disease. Salivary glands: The parotid glands and submandibular glands are normal. Thyroid gland: Normal CT appearance Vascular structures: Scattered atherosclerotic calcifications. The right internal jugular vein is not seen, either resected or chronically occluded by the adjacent mario disease, unchanged compared to several priors. Upper chest: Please refer to the separately dictated chest CT. Bones and teeth: No acute abnormalities. Multilevel degenerative changes of the spine. The patient is edentulous. IMPRESSION: Increase in bulk of the conglomerate right-sided mario disease compared to 04/23/2023. Provider Clinical Summary Briefly the patient with metastatic head and neck cancer who returns to clinic for follow-up. Patient was initially diagnosed with squamous cell carcinoma of the base of the tongue with bulky right cervical adenopathy, left cervical adenopathy and the bilateral pulmonary nodules. The patient was status post multiple lines of systemic therapy. Currently the patient is on pembrolizumab. The patient is noncompliant with office visits and imaging studies. He didn't have restaging scans that were ordered by Dr. Good prior to seeing me in October 2023. I reordered scans during the last visit, but he did not it either. Assessment/Plan 1. Head and neck cancer 2. Hypertension I had a long conversation with the patient together with my nurse Jenny regarding the nature and prognosis of his disease. I personally reviewed his recent lab results, biopsy results and imaging studies. I also discussed with the patient regarding abnormal findings. Based on current clinical data, I informed the patient that he has metastatic squamous cell carcinoma of oropharynx. I will restage his disease with PET scan since the patient may have oligo-metastatic disease of right neck that can be managed by radiation. I informed the patient that he may require for a repeat biopsy if he has a positive PET CT scan. The patient is currently experiencing gait issues and right shoulder dropping, for which I attempted to have an MRI brain to rule out intracranial metastatic disease, but he didn't do it at all. I discussed with the patient about rationale of restaging workup since we have to evaluate the treatment response. In addition he was found to have elevation of Cr, which may be from current therapy (pembrolizumab). Therefore it's very important for us to know if the current therapy has any benefit of controlling his disease. The patient will return to clinic in 6 weeks with scans, but give us a call if he has any questions. Thank you for asking me to be involved into the patient care! Nadia Hernández MD Total Time Spent I spent a total of 70 minutes today reviewing the chart/medical records, speaking with the patient, formulating and discussing the treatment plan, and documenting the findings and encounter. CC Reports to: Melissa NUÑEZ, Dioni Hill MD ([place]) , Sofiya Car /gabrielle/ MADYSON BERNARD RN REGISTERED NURSE Signed: 06/22/2024 08:44 MADYSON BERNARD [facility]
--- OUTSIDE RECORDS SUMMARY | 2024-09-04 21:23 | XMS_ITS ---
Author Name [facility] [place] Address [address] [place] [address] Care Team Providers Care Senior Network Security Engineer Name Role Phone MALGORZATA PEARL Primary Care Provider Unavailabl e Insurance Providers: [...] Patient's Relationship to Policy [place] MED[place] MEDICAID [facility] NENA HUNG EDU Sep 08, 2019 MEDICAI D [id number] SANTHOSH GLASGOW PATIENT MEDICARE (WNR) MEDICARE (M) PART B Nov 06, 2012 PART B [id number] SANTHOSH GLASGOW PATIENT MEDICARE (WNR) MEDICARE (M) PART A Apr 08, 2003 PART A [id number] SANTHOSH GLASGOWHazel PATIENT Selected Encounter This section includes the information on record at [place] for the Encounter. Date/Time Encounter Type Encounter Description Reason Pro vider Source Jun 22, 2024 09:51 AM Outpatient Encounter ADMIN PAT ACTIVTIES (MASNONCT) IHE Encounter Template Text not used by [place] Plan of Treatment: Future Appointments (+ 6 months) and Future Tests (+/- 45 days) The Plan of Treatment section includes future care activities for the patient from all [place] treatmentfacilities. This section includes future appointments and [...] of theEncounter. The data comes from all [place] treatment facilities. Test Date/Time Test Type Test Details Facility Name Jun 04, 2024 12:00 AM Laboratory - Chemi stry Order BASIC METABOLIC PANEL (non-fasting) BLOOD (SST-SERUM) [facility] Jun 04, 2024 12:00 AM Laboratory - Chemi stry Order LIPID PANEL FASTING BLOOD (SST-SERUM) [facility] Jun 04, 2024 12:00 AM Laboratory - Chemi stry Order BASIC METABOLIC PANEL (fasting) BLOOD (SST-SERUM) [facility] Jun 04, 2024 12:00 AM Laboratory - Chemi stry Order CBC AND DIFF (AUTO) BLOOD (LAV-BLOOD) [facility] Jun 04, 2024 12:00 AM Laboratory - Chemi stry Order LIVER FUNCTION BLOOD (SST-SERUM) [facility] Social History: Smoking Status (Most current) and Tobacco Use (All prior to encounter date) This section includes the most current, and the historical, smoking and tobacco- related health factors from the [place] facility where the Encounter took place. Current Smoking Status This section includes the most current smoking, or tobacco-related health factor, from the [place] facility where the Encounter took place. Date/Time Current Smoking Status Comment Facil ity Mar 18, 2024 08:30 AM NE-TOBACCO FORMER USER [facility] Tobacco Use History This section includes a history of the smoking, or tobacco-related health factors, that were collected on or before the date of the Encounter. The data comes from the [facility] where the Encounter took place. Date/Time Smoking Status/Tobac co Use Comment Facility Mar 18, 2024 08:30 AM VA-TOBACCO QUIT 15 YRS OR MORE [place] [facility] [place] [facility] Mar 20, 2023 09:00 AM VA-TOBACCO [facility] Mar 20, 2023 09:00 AM VA-TOBACCO QUIT 15 YRS OR MORE [place] [facility] [place] [facility] May 28, 2021 01:00 PM VA-TOBACCO FORMER USER [place] [facility] [place] [facility] May 28, 2021 01:00 PM VA-TOBACCO QUIT 15 YRS OR MORE [place] [facility] [place] [facility] May 20, 2019 07:47 AM VA-TOBACCO [facility] May 20, 2019 07:47 AM VA-TOBACCO QUIT 15 YRS OR MORE [place] [facility] [place] [facility] January 12, 2018 08:29 AM QUIT TOBACCO USE 1-7 YEARS AGO [place] [facility] [place] [facility] Mar 15, 2017 12:54 PM QUIT TOBACCO USE > 7 YEARS AGO [place] [facility] Oct 09, 2015 11:07 AM CURRENT SMOKER cigars [facility] [place] [place] [facility] Oct 09, 2015 11:07 AM QUIT TOBACCO USE IN PAST YEAR [facility] [place] [facility] Mar 31, 2008 02:54 PM QUIT TOBACCO USE > 7 YEARS AGO [place] [facility] Dec 01, 2007 10:42 AM V1-PT DECLINES REF TO TOBACCO CESS PRGM [facility] Dec 01, 2007 10:42 AM V1-PT DECLINES TOBACCO CESSATION MEDS [facility] Dec 01, 2007 10:42 AM V1-PT THINKING ABOUT QUIT TOBACCO USE [place] [facility] January 13, 2007 10:36 AM QUIT TOBACCO USE 1-7 YEARS AGO 5 or 6 [facility] [place] [facility] May 27, 2006 10:34 AM CURRENT SMOKER 1 cigar per day [facility] Jun 04, 2005 10:25 AM QUIT TOBACCO USE IN PAST YEAR 1 yr ago [facility] Oct 10, 2004 08:01 AM HISTORY OF SMOKING 4 yrs ago [facility] Oct 10, 2004 08:01 AM QUIT TOBACCO USE 1-7 YEARS AGO 4 yrs [facility] Oct 10, 2004 08:01 AM QUIT TOBACCO USE IN PAST YEAR 4 yrs ago [facility] Jul 22, 2003 02:24 PM CURRENT SMOKER smokes 5 small cigars daily [facility] May 28, 2002 02:12 PM HISTORY OF SMOKING quit 1975 [facility] Feb 18, 2002 02:36 PM QUIT TOBACCO USE IN PAST YEAR [facility] May 19, 2001 02:29 PM CURRENT SMOKER chews cigars, does not smoke them but reports he shakes when he doesn''t chew on stogies. [facility] Encounter Notes: All associated encounter notes This section contains the clinical notes associated to the Encounter. Date/Time Encounter Note(s) Provider Source Jun 22, 2024 09:51 AM ADMINISTRATIVE NOT E: LOCAL TITLE: CCC: SCHEDULING ADMINISTRATION STANDARD TITLE: ADMINISTRATIVE NOTE DATE OF NOTE: JUN 22, 2024@09:51:27 ENTRY DATE: JUN 22, 2024@09:51:27 AUTHOR: ED POST COSIGNER: URGENCY: STATUS: COMPLETED CCC: SCHEDULING ADMINISTRATION Has ADDENDA Patient Demographics Patient Name: PETER GLASGOW Patient Primary Phone: [phone] Patient Primary Address: [address] [place] [address] [address] [place] [address] Patient : 1940 Patient Age: 84 Caller/Recipient Relation to Patient: Self Administrative Administrative Note Reason: Other Administrative Note Comments: Vet has to cancel 06/22/24 10:30am CWM/NO/PACT EIGHT FTF with PCP appointment because Vet report his car broke down. CC does not have access to cancel this appointment due to special instructions. Please cancel Vet appointment. IMPORTANT: This note was created by [facility] staff. Please do not alert the staff member by adding them as a signer for future communications. Alerts are not monitored by this user. /gabrielle/ ED POST Signed: 06/22/2024 09:51 Receipt Acknowledged By: 06/22/2024 10:41 /es/ TIERRA FREITAS LPN License Practical Nurse 06/22/2024 12:21 /gabrielle/ GO BRAGG 06/22/2024 ADDENDUM STATUS: COMPLETED AMSA CALLED ON THE TELEPHONE FOR SCHEDULING, WILL CALL FOR SCHEDULING WHEN HE HAS ADEQUATE TRANSPORTATION. /favian BRAGG Signed: 06/22/2024 12:27 ED POST [place] [facility]
--- OUTSIDE RECORDS SUMMARY | 2024-09-04 21:23 | XMS_ITS ---
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 Date/Time Encounter Type Encounter Description Reason Provider Source Mar 18, 2024 08:30 AM OFFICE O/P EST HI 40 MIN PRIMARY CARE/MEDICINE ICD-10-CM G89.3 Neoplasm related pain (acute) (chronic) PEARL MCGARRY Arun Encounter Template Text not used by [place] Assessments - Encounter Diagnoses This section includes the primary and secondary diagnoses documented for the Encounter. Date/Time Primary/Secondary Diagnosis Diagnosis Name Provider Source Mar 18, 2024 04:44 PM PRIMARY Neoplasm related pain (acute) (chronic) PEARL MCGARRY [facility] [place] [place] [facility] Mar 18, 2024 04:44 PM SECONDARY Essential (primary) hypertension [facility] [place] [facility] Mar 18, 2024 04:44 PM SECONDARY Malignant neoplasm of hypopharynx, unspecified [facility] [place] [facility] Mar 18, 2024 04:44 PM SECONDARY Personal history of other venous thrombosis and embolism [facility] [place] [facility] Vital Signs: All taken on the encounter date This section contains inpatient and outpatient Vital Signs collected on the date of the Encounter. Date/Time Temperature Pulse Blood Pressure Respiratory Rate SP02 Pain Height Weight Body Mass Index Source Mar 18, 2024 09:08 AM 75 160/80 [place] [facility] Mar 18, 2024 08:20 AM 98.3 52 175/62 20 96 8 68 181 28 [place] [facility] [place] [facility] Social History: Smoking Status (Most current) and Tobacco Use (All prior to encounter date) This section includes the most current, and the historical, smoking and tobacco- related health factors from the [place] facility where the Encounter took place. Current Smoking Status This section includes the most current smoking, or tobacco-related health factor, from the [place] facility where the Encounter took place. Date/Time Current Smoking Status Comment [facility] Mar 18, 2024 08:30 AM VA-TOBACCO FORMER USER [place] [facility] [place] [facility] Tobacco Use History This section includes a history of the smoking, or tobacco-related health factors, that were collected on or before the date of the Encounter. The data comes from the [place] facility where the Encounter took place. Date/Time Smoking Status/Tobac co Use Comment Facility Mar 18, 2024 08:30 AM VA-TOBACCO QUIT 15 YRS OR MORE [place] [facility] [place] [facility] Mar 20, 2023 09:00 AM VA-TOBACCO FORMER USER [place] [facility] [place] [facility] Mar 20, 2023 09:00 AM VA-TOBACCO QUIT 15 YRS OR MORE [place] [facility] [place] [facility] May 28, 2021 01:00 PM VA-TOBACCO FORMER USER [place] [facility] [place] [facility] May 28, 2021 01:00 PM VA-TOBACCO QUIT 15 YRS OR MORE [place] [facility] [place] [facility] May 20, 2019 07:47 AM VA-TOBACCO FORMER USER [place] [facility] [place] [facility] May 20, 2019 07:47 AM VA-TOBACCO QUIT 15 YRS OR MORE [place] [facility] [place] [facility] January 12, 2018 08:29 AM QUIT TOBACCO USE [facility] [place] [facility] Mar 15, 2017 12:54 PM QUIT TOBACCO USE > 7 YEARS AGO [place] [facility] [place] [facility] Oct 09, 2015 11:07 AM CURRENT SMOKER cigars [facility] [place] [place] [facility] Oct 09, 2015 11:07 AM QUIT TOBACCO USE IN PAST [facility]AR [facility] [place] [facility] Mar 31, 2008 02:54 PM QUIT TOBACCO USE > 7 YEARS AGO [place] [facility] [place] [facility] Dec 01, 2007 10:42 AM V1-PT DECLINES REF TO TOBACCO CESS [facility] [place] [facility] Dec 01, 2007 10:42 AM V1-PT DECLINES TOBACCO CESSATION MEDS [place] [facility] [place] [facility] Dec 01, 2007 10:42 AM V1-PT THINKING ABOUT QUIT TOBACCO USE [place] [facility] [place] [facility] January 13, 2007 10:36 AM QUIT TOBACCO USE 1-7 YEARS AGO 5 or 6 [place] [facility] [place] [facility] May 27, 2006 10:34 AM CURRENT SMOKER 1 cigar per day [facility] [place] [facility] Jun 04, 2005 10:25 AM QUIT TOBACCO USE IN PAST YEAR 1 yr ago [place] [facility] [place] [facility] Oct 10, 2004 08:01 AM HISTORY OF SMOKING 4 yrs ago [place] [facility] [place] [facility] Oct 10, 2004 08:01 AM QUIT TOBACCO USE 1-7 YEARS AGO 4 yrs [place] [facility] [place] [facility] Oct 10, 2004 08:01 AM QUIT TOBACCO USE IN PAST YEAR 4 yrs ago [place] [facility] [place] [facility] Jul 22, 2003 02:24 PM CURRENT SMOKER smokes 5 small cigars daily [place] [facility] [place] [facility] May 28, 2002 02:12 PM HISTORY OF SMOKING quit [facility] [place] [facility] Feb 18, 2002 02:36 PM QUIT TOBACCO USE IN PAST YEAR [place] [facility] [place] [facility] May 19, 2001 02:29 PM CURRENT SMOKER chews cigars, does not smoke them but reports he shakes when he doesn''t chew on stogies. [facility] Encounter Notes: All associated encounter notes This section contains the clinical notes associated to the Encounter. Date/Time Encounter Note(s) Provider Source Mar 18, 2024 08:40 AM PHYSICIAN NOTE: LOCAL TITLE: MD NOTE STANDARD TITLE: PHYSICIAN NOTE DATE OF NOTE: MAR 18, 2024@08:40 ENTRY DATE: MAR 18, 2024@08:40:16 AUTHOR: PEARL MCGARRY COSIGNER: URGENCY: STATUS: PETER FLOWER is a 83 year old WHITE MALE who is being seen today in primary care for routine follow up. CARE TEAM Community Primary Care Provider: none [place] Specialists: Community Specialists: oncology- [facility] HISTORY PERIOD OF SERVICE - [place] [facility] SERVICE CONNECTED % - NONE FOUND HISTORY OF PRESENT ILLNESS Patient presents today for follow-up: seen by oncology- their note form nely: 1. 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 We will obtain repeat imaging in 4 weeks. 2. Pulmonary metastases--no longer present 3. 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 We will repeat immunoprofile with next routine labs PLAN: 1. Continue pembrolizumab 2. CT scans in 4 weeks RELEVANT PAST MEDICAL HISTORY Active problems - Computerized Problem List is the source for the followin. Psoriasis 2. 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 Pain due to neoplastic disease head and neck cancer with metastasis 4. 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 Gout 6. Venous insufficiency of leg using compression stockings 7. Hypercholesterolemia (SNOMED CT 28869963) 8. Impaired fasting glucose 9. Pancytopenia 10. 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 Essential hypertension (SNOMED CT 83366711) 12. Pain in right hip joint (SNOMED CT [id number]) was seen by [facility] on nsaids PAST SURGICAL HISTORY FAMILY HISTORY Siblings: all SOCIAL HISTORY Marital Status: since 2022 Children: none- does not have a HCP Lives with: alone Employment Status: Alcohol Use: 4 shots daily, previous heavy beer Tobacco Use: quit smoking in 1954, now smokes cigars Pack Year: Drug Use: none Exercise: walks with cane ALLERGIES Patient has answered NKA MEDICATIONS VA and Non VA meds were reconciled with the patient who left with a corrected copy. Active and Recently Outpatient Medications (excluding Supplies): Active Outpatient Medications Status 1) ACETAMINOPHEN 325MG TAB TAKE TWO TABLETS BY MOUTH ACTIVE EVERY 6 HOURS NEEDED FOR PAIN 2) CHOLECALCIF 25MCG (D3-1,000UNIT) TAB TAKE ONE TABLET ACTIVE BY MOUTH ONCE DAILY 3) CLOBETASOL PROPIONATE 0.05% CREAM APPLY A MODERATE ACTIVE AMOUNT TOPICALLY TWICE DAILY FOR ITCHING/RASH 4) CYANOCOBALAMIN 500MCG TAB TAKE TWO TABLETS BY MOUTH ACTIVE ONCE DAILY (VITAMIN B12) 5) SIMVASTATIN 20MG TAB TAKE ONE-HALF TABLET BY MOUTH ACTIVE EVERY DAY REVIEW OF SYMPTOMS NEGATIVE FOR: CONSTITUTION: no weight loss/gain, fatigue, fevers, night sweats HEENT: no vision problems, hearing loss,swallowing difficulties, sinus pain CV: no chest pain, palpitations, dyspnea on exertion, orthopnea RESP: no cough, shortness of breath, wheezing GI: no abdominal pain, N/V/D, constipation, blood in stool, normal appetite : no urinary frequency, nocturia, hematuria MUSC: no joint pain, joint swelling, muscle aches NEURO: no headaches, dizziness, memory loss, tremor, weakness PSYCH: no depression, anxiety, suicidal or homicidal thoughts SKIN: no rash, new skin lesions PHYSICAL EXAM Vitals: - - - - - - - B/P: 160/80 (03/18/2024 09:08) pulse: 75 (03/18/2024 09:08) resp: 20 (03/18/2024 08:20) temp: 98.3 F [36.8 C] (03/18/2024 08:20) Ht: 68 in [172.7 cm] (03/18/2024 08:20) Wgt: 181 lb [82.10 kg] (03/18/2024 08:20) BMI: BMI: 27.6 Exam: - - - - - - - swelling and erythema rigth post oropharynx rigth cervical frimness/induration, adenoapthy, extedning down to supraclavicular area RRR S1S1 LCTA bilat RECENT LABS BMP (FASTING) Collection DT Specimen Test Name Result Units Ref Range 06/25/2016 09:25 SERUM UREA NITROGEN 14 mg/dL 7 - 25 06/25/2016 09:25 SERUM GLUCOSE 120 H mg/dL 65 - 100 06/25/2016 09:25 SERUM SODIUM 141 mmol/L 135 - 145 06/25/2016 09:25 SERUM POTASSIUM 4.1 mmol/L 3.5 - 5.0 06/25/2016 09:25 SERUM CHLORIDE 107 mmol/L 100 - 110 06/25/2016 09:25 SERUM CO2 27 mEq/L 20 - 06/25/2016 09:25 SERUM CREATININE, Serum 0.97 mg/dL 0.50 - 1.40 06/25/2016 09:25 SERUM eGFR (IDMS) >60 Ref: >=60 LIVER PANEL TREND Collection DT Spec AST ALT T BILI ALK LEELA T. PROT ALBUMIN 06/25/2016 09:25 SERUM 17 15 0.4 72 6.8 3.5 10/13/2015 07:02 SERUM 17 13 0.5 63 7.2 3.5 12/08/2014 07:01 SERUM 16 15 0.4 96 7.1 3.7 06/09/2014 07:02 SERUM 16 13 0.5 87 6.8 3.7 12/03/2013 07:02 SERUM 20 19 0.5 81 6.9 3.5 LIPID PANEL TREND Collection DT Spec CHOL HDL CHO/HDL LDL-c TRIG 06/25/2016 09:25 SERUM 153 54 2.8 81 88 10/13/2015 07:02 SERUM 168 62 H 2.7 74 158 H 12/08/2014 07:01 SERUM 186 70 H 2.7 100 82 06/09/2014 07:02 SERUM 164 58 2.8 94 62 12/03/2013 07:02 SERUM 207 H 80 H 2.6 108 96 CBC TREND Collection DT Spec WBC RBC HGB HCT MCV MCH PLT 06/25/2016 09:25 BLOOD 7.15 4.36 13.6 41.8 95.9 31.2 199 10/13/2015 07:02 BLOOD 5.29 4.18 L 13.6 40.3 96.4 32.5 143 12/08/2014 07:01 BLOOD 6.72 4.57 14.2 43.1 94.3 31.1 174 06/09/2014 07:02 BLOOD 8.55 4.54 14.0 42.4 93.4 30.8 191 12/03/2013 07:02 BLOOD 5.77 4.59 14.4 43.5 94.8 31.4 170 PSA TREND Collection DT Spec PSA SR- 11/23/2007 07:12 SERUM 1.01 05/19/2007 07:17 SERUM 0.91 09/30/2006 07:53 SERUM 0.82 04/09/2004 07:06 SERUM 0.9 10/20/2003 07:20 SERUM 0.9 HEMOGLOBIN A1C TREND No data available ASSESSMENT AND PLAN 1. metastatic tongue/throat cancer- for about 5 years- care at [facility]- no longer on chemo- refuses radiation. not ready for hospice/palliative care. can do all his ADLs independently. will review last oncolgy note. i suspect it will be harder for him to verbalize/communicate - it is already diffiult to understand what he is saying 2. HTN- BP elevtaed- does not want medication 3. ETOH dependence- drinking less than 1 year ago- but 4-5 shots a day. smokes a cigar HEALTH MAINTENANCE Colonoscopy (due at age 43) - Abdominal Aortic Aneurysm Screening (due at age 63 if smoker/prev smoker) - Prostate screening - Tetanus: due every 10 years Pneumonia Vacccine: Flu Vaccine: due yearly Covid Vaccine: due yearly FOLLOW UP f/u in 3 mo- 60 min apt- recommend doing HCP/MOLST form VISIT TYPE:a HIGH complexity visit where 60 minutes was spent in direct patient care, review of records and documentation. Upcoming Appointments: No future appointments /es/ Candie HOOLissette PHYSICIAN Signed: 03/18/2024 16:44 PEARL MCGARRY [facility] Mar 18, 2024 08:25 AM PREVENTIVE MEDICINE NURSING NOTE: LOCAL TITLE: CLINICAL REMINDERS/NURSING STANDARD TITLE: PREVENTIVE MEDICINE NURSING NOTE DATE OF NOTE: MAR 18, 2024@08:25 ENTRY DATE: MAR 18, 2024@08:25:25 AUTHOR: CRICKET JIMENEZ COSIGNER: URGENCY: STATUS: COMPLETED Depression Screening: Perform PHQ-2 A PHQ-2 screen was performed. The score was 0 which is a negative screen for depression. Over the past two weeks, how often have you been bothered by the following problems? 1. Little interest or pleasure in doing things Not at all 2. Feeling down, depressed, or hopeless Not at all Advance Directive Screen MH AD: Patient does not have a completed advance directive on file at any facility, [facility] or outside. S/he is not interested in completing one at this time. The patient received education about Advance Directives and written notification of his/her rights. Tobacco Use Screening: The patient is a former tobacco user. The patient quit fifteen or more years ago. Alcohol Use Screen (AUDIT-C): Alcohol Screen: SCREEN FOR ALCOHOL (AUDIT-C) An alcohol screening test (AUDIT-C) was negative (score=1). 1. How often did you have a drink containing alcohol in the past year? Consider a drink to be a 12 ounce can or bottle of regular beer, 8 ounces of malt liquor, a 5 ounce glass of table wine, or a 1.5 ounce shot of liquor (like scotch, gin, or vodka). Monthly or less 2. How many drinks containing alcohol did you have on a typical day when you were drinking in the past year? One or two drinks 3. How often did you have six or more drinks on one occasion in the past year? Never /es/ Cricket Jimenez, Health Welder Apprentice [employer] FRUIT AND VEGETABLE PACKER,PRIMARY CARE Signed: 03/18/2024 08:26 CRICKET JIMENEZ [facility]
--- OUTSIDE RECORDS SUMMARY | 2024-09-04 21:23 | XMS_ITS | Encounter Summary ---
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 Date/Time Encounter Type Encounter Description Reason Pro vider Source Sep 12, 2023 12:00 AM Outpatient Encounter EVENT (HISTORICAL) IHE Encounter Template Text not used by [place] Plan of Treatment: Future Appointments (+ 6 months) and Future Tests (+/- 45 days) The Plan of Treatment section includes future care activities for the patient from all [place] treatmentfacilities. This section includes future appointments and future orders which are active, pending or scheduled. Future Appointments This section includes appointments that were scheduled to occur 6 months from the date of the Encounter, up to a maximum of 20 appointments. The data comes from all [place] treatment facilities. Appointment Date/Time Appointment Type Appointme nt Facility Name Sep 18, 2023 10:00 AM AMBULATORY - [place]ICINE [facility] [place] [facility] Social History: Smoking Status (Most current) and Tobacco Use (All prior to encounter date) This section includes the most current, and the historical, smoking and tobacco- related health factors from the [place] facility where the Encounter took place. Current Smoking Status This section includes the most current smoking, or tobacco-related health factor, from the [place] facility where the Encounter took place. Date/Time Current Smoking Status Comment [facility] Mar 20, 2023 09:00 AM VA-TOBACCO FORMER USER [facility] [place] [facility] Tobacco Use History This section includes a history of the smoking, or tobacco-related health factors, that were collected on or before the date of the Encounter. The data comes from the [place] facility where the Encounter took place. Date/Time Smoking Status/Tobac co Use Comment Facility Mar 20, 2023 09:00 AM VA-TOBACCO QUIT 15 YRS OR MORE [facility] [place] [facility] May 28, 2021 01:00 PM VA-TOBACCO FORMER USER [facility] [place] [facility] May 28, 2021 01:00 PM VA-TOBACCO QUIT 15 YRS OR MORE [facility] [place] [facility] May 20, 2019 07:47 AM VA-TOBACCO FORMER USER [facility] [place] [facility] May 20, 2019 07:47 AM VA-TOBACCO QUIT 15 YRS OR MORE [facility] [place] [facility] January 12, 2018 08:29 AM QUIT TOBACCO USE 1-7 YEARS AGO [facility] [place] [facility] Mar 15, 2017 12:54 PM QUIT TOBACCO USE > 7 YEARS AGO [facility] [place] [facility] Oct 09, 2015 11:07 AM CURRENT SMOKER cigars [facility] [place] [facility] Oct 09, 2015 11:07 AM QUIT TOBACCO USE IN PAST YEAR [facility] Mar 31, 2008 02:54 PM QUIT TOBACCO USE > 7 YEARS AGO [facility] [place] [facility] Dec 01, 2007 10:42 AM V1-PT DECLINES REF TO TOBACCO CESS PRGM [facility] Dec 01, 2007 10:42 AM V1-PT DECLINES TOBACCO CESSATION MEDS [facility] Dec 01, 2007 10:42 AM V1-PT THINKING ABOUT QUIT TOBACCO USE [facility] [place] [facility] January 13, 2007 10:36 AM QUIT TOBACCO USE 1-7 YEARS AGO 5 or 6 [facility] [place] [facility] May 27, 2006 10:34 AM CURRENT SMOKER 1 cigar per day [facility] Jun 04, 2005 10:25 AM QUIT TOBACCO USE IN PAST YEAR 1 yr ago [facility] [place] [facility] Oct 10, 2004 08:01 AM HISTORY OF SMOKING 4 yrs ago [facility] [place] [facility] Oct 10, 2004 08:01 AM QUIT TOBACCO USE 1-7 YEARS AGO 4 yrs [facility] Oct 10, 2004 08:01 AM QUIT TOBACCO USE IN PAST YEAR 4 yrs ago [facility] [place] Jul 22, 2003 02:24 PM CURRENT SMOKER smokes 5 small cigars daily [facility] [place] [facility] May 28, 2002 02:12 PM HISTORY OF SMOKING quit [facility] [place] [facility] Feb 18, 2002 02:36 PM QUIT TOBACCO USE IN PAST YEAR [facility] [place] [facility] May 19, 2001 02:29 PM CURRENT SMOKER chews cigars, does not smoke them but reports he shakes when he doesn''t chew on stogies. [facility] Encounter Notes: All associated encounter notes This section contains the clinical notes associated to the Encounter. Date/Time Encounter Note(s) Provider Source Sep 12, 2023 12:00 AM NONVA DIAGNOSTIC Wayne KESHARACHAEL REPORT: LOCAL TITLE: NON-VA DIAGNOSTICS STANDARD TITLE: NONVA DIAGNOSTIC STUDY REPORT DATE OF NOTE: SEP 12, 2023 ENTRY DATE: OCT 07, 2023@14:24:46 AUTHOR: NAOMI SANTO EXP COSIGNER: URGENCY: STATUS: COMPLETED VistA Imaging - Scanned Document SCANNED DOCUMENT SIGNATURE NOT REQUIRED Electronically Filed: 10/07/2023 by: NAOMI SHEPPARD [facility] [place]
--- NOTE | 2024-09-04 21:37 | PC.NURSE ---
pt ambulated to bathroom with cane and standby assist.
--- NOTE | 2024-09-04 22:39 | ED_ITS ---
HPI - Extremity Injury (Lower) General Chief Complaint: Extremity Injury, Lower Stated Complaint: ETOH USE,R KNEE PAIN/NO NEW INJURY PER EMS Time Seen by Provider: 09/04/24 21:30 Source: patient and EMS Mode of arrival: EMS Limitations: no limitations History of Present Illness ED Provider: Dr. Sharla Dillard HPI Narrative: Patient comes to the emergency room via ambulance. Earlier today, patient states that he was at home, states that he tripped and landed on his knees. Patient states that he was trying to pull himself up by holding on into a rail, but could not do so. Patient states that every so often his knees gave out and trips or falls and lands on his knees. Patient called 911 for help. EMS Health him up and convince him to come to the hospital to get checked out. Patient has no complaints. Patient states that he has fallen multiple times on his knees. Patient denies hitting his head or losing consciousness, patient states that he does take blood thinners. Patient denies any headache, no neck pain, no back pain. Patient has small abrasions in the knee but states that they do not hurt much. Related Data Home Medications ?Medication ?Instructions ?Recorded ?Confirmed apixaban 2.5 mg tablet (Eliquis) 1 tab PO BID 10/14/21 10/14/21 cyanocobalamin (vitamin B-12) 1,000 mcg PO DAILY 10/14/21 10/14/21 1,000 mcg tablet hydroxyzine HCl 10 mg tablet 10 mg PO QID 10/14/21 10/14/21 riboflavin (vitamin B2) 100 mg 100 mg PO DAILY 10/14/21 10/14/21 tablet tramadol 50 mg tablet 50 mg PO TID PRN Pain 10/14/21 10/14/21 Previous Rx's ?Medication ?Instructions ?Recorded daptomycin 500 mg intravenous 500 mg IV Q24H #22 ea 10/22/21 solution oxycodone 5 mg tablet 5 mg PO BID PRN pain (scale score 10/23/21 7-10) #20 tabs walker (Ultra-Light Rollator [facility] [place] #1 ea 10/23/21 Allergies Allergy/AdvReac Type Severity Reaction Status Date / Time No Known Allergies Allergy Verified 09/04/24 21:02 [No Known Allergies*] Review of Systems Review of Systems: Constitutional : No Weight loss, No Fever, No Chills, No Night Sweats, No Fatigue, No Malaise ENT/Mouth : No Hearing loss, No Ear Pain, No Nasal Congestion, No Sinus Pain, No Hoarseness, No sore throat, No Rhinorrhea, No Swallowing Difficulty Eyes: No Eye Pain, No Swelling, No Redness, No Foreign Body, No Discharge, No Vision Changes Cardiovascular : No Chest Pain, No SOB, No Dyspnea on Exertion, No Orthopnea, No Edema, No Palpitations Respiratory : No Cough, No Sputum, No Wheezing, No Smoke Exposure, No Dyspnea Gastrointestinal : No Nausea, No Vomiting, No Diarrhea, No Constipation, No abdominal Pain, No Hematochezia, No Melena Genitourinary : no irregular bleeding, No Dysuria, No Urinary Frequency, No Hematuria, No Urinary Incontinence, No Urgency, No Flank Pain, No Urinary Flow Changes, No Hesitancy Musculoskeletal : Complaining of chronic knee pain and is giving out, No Myalgias, No Joint Swelling Skin : Complaining of superficial skin abrasions in the knees Neuro : No Weakness, No Numbness, No Paresthesias, No Loss of Consciousness, No Dizziness, No Headache Psych : No Anxiety/Panic, No Depression, No SI/HI/AH/VH, No Social Issues, Heme/Lymph: No Bruising, No Bleeding,No Lymphadenopathy Endocrine : No Polyuria, No Polydipsia, No Temperature Intolerance [facility] Past Medical History Medical History Staphylococcus aureus bacteremia Osteoarthritis of right hip Deep vein thrombosis, upper right extremity Throat cancer Family History Family History Father CAD (coronary artery disease) Mother CAD (coronary artery disease) Social History Social History Household Members: Significant Other Housing: Apartment Do you presently have visiting nurse or other home services: No Alcohol intake: current Comment: pt refuses bed alarm Patient Tobacco Use Status: Former Tobacco user Smoked in Last 30 Days: Yes Use of substances other than those prescribed or required for medical reasons: No Advance Directives: No Advance Directives Information Provided: Yes service: Yes Current occupational status: disabled Physical Exam Vital Signs: Vital Signs: Last Vital Signs Temp 97.6 F 09/04/24 20:58 Pulse 62 09/04/24 20:58 Resp 18 09/04/24 20:58 BP 175/57 H 09/04/24 20:58 Pulse Ox 97 09/04/24 20:58 O2 Del Method Room Air 09/04/24 20:58 BMI result Body Mass Index 26.5 Const: Other: Appearance: Alert. Oriented X3. No acute distress. Eyes: Pupils equal, round and reactive to light. ENT: Pharynx normal. Neck: Normal inspection. Neck supple. No lymph nodes noted. No crepitus CVS: Normal heart rate and rhythm. Pulses normal. Normal S1 and S2 Respiratory: No respiratory distress. Breath sounds normal. No Wheezing. No rales Abdomen: Soft and nontender. No rigidity. No distention. Skin: Skin warm and dry. Normal skin color. Normal skin turgor. Extremities: +2 pitting edema bilaterally, superficial abrasions in both knees, bleeding controlled, no lacerations Neuro: Oriented X 3. No motor deficit. No sensory deficit. Moving all extremities. No slurred speech. CN 2 through 12 grossly intact Psych: calm, cooperative, normal affect Medical Decision Making Medical Decision Making MDM Narrative: Patient is ambulatory, alert and oriented x3, no acute distress. Patient calm and cooperative Patient does not seem to be intoxicated at all. Clinically sober. Patient able to ambulate to the bathroom by himself by using his cane. Patient states that he has a slightly abnormal speech due to history of throat cancer. Patient admits that he is on blood thinners for history of blood clots Patient states that he feels well and would like to be discharged home. Patient declined any further care, declined case management or PT evaluation. Patient is not SI or HI, patient is clinically sober, there is no reason to Section 12 the patient. Discharge Plan Discharge Clinical Impression: Fall, Abrasion of skin Patient Disposition: Home, Self-Care Instructions: Abrasion (ED), Fall Prevention for Older Adults (ED) Additional Instructions: Please follow-up with your primary care physician tomorrow. If you have any worsening or new symptoms, please return to the emergency room or call 911 Prescriptions: No Action hydroxyzine HCl 10 mg tablet 10 mg PO QID Eliquis 2.5 mg tablet 1 tab PO BID riboflavin (vitamin B2) 100 mg Tablet 100 mg PO DAILY cyanocobalamin (vitamin B-12) 1,000 mcg Tablet 1,000 mcg PO DAILY tramadol 50 mg Tablet 50 mg PO TID PRN (Reason: Pain) daptomycin 500 mg recon soln 500 mg IV Q24H Qty: 22 0RF Rx Instructions: administer over 30 mins (DME) Ultra-Light Rollator Misc See Rx Instructions .Route Qty: 1 0RF Rx Instructions: As directed oxycodone 5 mg tablet 5 mg PO BID MDD 15 mg PRN (Reason: pain (scale score 7-10)) Qty: 20 0RF Print Language: Panamanian
[2024-09-05 00:35] VITALS: BP 175/57; PULSE 62; RESP 18; TEMP 36.4; O2SAT 97
== END 2024-09-05 00:39 | disposition home or self-care (01) ==
PROVIDERS: Emergency Provider Emergency Medicine
DX: S80.212A Abrasion, left knee, initial encounter (principal); S80.211A Abrasion, right knee, initial encounter; W01.0XXA Fall on same level from slipping, tripping and stumbling without subsequent striking against object, initial encounter; R60.0 Localized edema; G89.29 Other chronic pain; M25.562 Pain in left knee; M25.561 Pain in right knee; Z86.718 Personal history of other venous thrombosis and embolism; Z79.01 Long term (current) use of anticoagulants; Y93.9 Activity, unspecified; Y92.039 Unspecified place in apartment as the place of occurrence of the external cause; Y99.9 Unspecified external cause status
CPT/HCPCS: 99282; 99284

== ENCOUNTER 2024-10-29 19:33 | Emergency (ER) | payer OTHER, SELFPAY ==
[2024-10-29] VITALS (7 sets, daily range): BP systolic 150–184; BP diastolic 57–107; PULSE 40–65; RESP 10–16; TEMP 36.4–36.5; O2SAT 96–97; BMI 25.9
--- NOTE | 2024-10-29 | ECG_ITS ---
Test Reason : FALL Blood Pressure : */* mmHG Vent. Rate : 47 BPM Atrial Rate : * BPM P-R Int : * ms QRS Dur : 86 ms QT Int : 506 ms P-R-T Axes : * -43 64 degrees QTcB Int : 447 ms Artifact in tracing Likely sinus rhythm Premature atrial complexes Left axis deviation Minimal voltage criteria for LVH, may be normal variant ( R in aVL ) Abnormal ECG When compared with ECG of 14-Oct-2021 14:20, decrease in ventricular rate PVCs not seen Referred By: Orlando Schneider Electronically Signed By: MICA MCKEON
--- NOTE | ~2024-10-29 | CT_ITS ---
CLINICAL HISTORY: fall CT cervical spine without contrast Comparison: CT of the cervical spine from 03/06/2022 Findings: Abnormal right lateral soft tissue concerning for neoplasm is partially imaged and measures 4.5 x 5.5 x 5.3 cm extending from the inferior margin of the right side of the mandible inferiorly to the level of the C6 and lower margin of the thyroid cartilage. 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 This is not further characterize by noncontrast CT. This extends laterally to skin surface, anteriorly to the mandible, superiorly to the imaged parotid gland, and dorsally posteriorly to mostly obscured right sternocleidomastoid musculature. Medial margins also extends into right para pharyngeal spaces with obscuration of the expected right parapharyngeal fat. No acute fracture of the cervical spine. No significant listhesis. Mild reversal of the cervical lordosis particularly at C4-C5. Degenerative changes include disc osteophyte complexes and facet arthropathy. Foraminal narrowing includes moderate left C5-C6 and moderate right at C6-C7. Additional degenerative changes include imaged craniocervical junction of the imaged temporomandibular joints. IMPRESSION: 1. Right-sided 5.5 cm lateral superficial soft tissue mass concerning for neoplasm. Nonemergent ENT consultation is advised. 2. No acute fracture of the cervical spine. This document has been electronically signed by: Aleks Wilson MD on 10/29/2024 20:45:58
--- NOTE | ~2024-10-29 | CT_ITS ---
CLINICAL HISTORY: fall CT head without contrast Comparison: Head CT from 03/06/2022 Findings: No acute intracranial hemorrhage. 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 Mild white matter pathology likely due to small-vessel ischemic disease. Basal ganglia calcifications are redemonstrated. Mild volume loss is generalized. No hydrocephalus or midline shift. Soft tissue swelling and scalp hematoma including over the left frontal and parietal convexities. No acute skull fracture. Mucosal thickening includes imaged paranasal sinuses. Imaged mastoid air cells are well aerated. Soft tissues calcification is unchanged right of the midline, anteriorly. IMPRESSION: 1. No acute intracranial abnormality. 2. Left frontal parietal scalp soft tissue swelling with small scalp hematoma. No acute skull fracture. This document has been electronically signed by: Aleks Wilson MD on 10/29/2024 20:45:37
[2024-10-29 20:38] LABS: MANUAL DIFF FLAG NO
[2024-10-29 20:39] LABS: Basophils Percent Auto 0.4 % (0-2); Eosinophils Absolute Auto 0.1 X10*3/uL (0.0-0.4); Eosinophils Percent Auto 0.9 % (0-4); Hematocrit 37.5 % (42.0-52.0); Hemoglobin 12.7 g/dl (14.0-18.0); Imm Gran Abs Auto 0.02 X10*3/uL (0.00-0.03); Imm Gran Pct Auto 0.4 % (0.0-0.4); Lymphocytes Absolute Auto 0.8 X10*3/uL (1.2-4.9); Mean Corpuscular HGB Conc 33.9 g/dl (31.0-36.0); Mean Corpuscular Volume 100.5 fL (80.0-98.0); Monocytes Absolute Auto 0.6 X10*3/uL (0.1-1.2); Neutrophils Absolute Auto 4.2 x10*3/uL (2.0-8.3); Neutrophils Percent Auto 73.3 % (45-73); Platelet Count 114 X10*3/uL (160-400); Red Blood Count 3.73 X10*6/uL (4.60-5.80); White Blood Count 5.7 X10*3/uL (4.8-10.8)
[2024-10-29 20:46] LABS: INTERNATIONAL NORM RATIO 0.9 (0.9-1.1); Prothrombin Time 10.4 SEC (10.9-12.4)
[2024-10-29 20:53] LABS: Amphetamine Screen Urine Not Detected (Not Detect); Barbiturates, Urine Not Detected (Not Detect); Benzodiazepines Screen Urine Not Detected (Not Detect); Buprenorphine Scr Not Detected (Not Detect); Cannabinoid Screen Urine Not Detected (Not Detect); Cocaine Screen Urine Not Detected (Not Detect); Fentanyl, urine Not Detected (Not Detect); Methadone Screen, Urine Not Detected (Not Detect); Opiate Screen Urine Not Detected (Not Detect); Oxycodone Screen Urine Not Detected (Not Detect); Phencyclidine Screen Urine Not Detected (Not Detect)
[2024-10-29 20:54] LABS: Alanine Aminotransferase 14 U/L (0-40); Albumin Level 3.6 g/dL (3.5-5.0); Alkaline Phosphatase 66 U/L (39-117); Anion Gap 15 (12-20); Aspartate Amino Transferase 26 U/L (5-37); Bilirubin Total 0.3 mg/dL (0.0-1.0); Blood Urea Nitrogen 23 mg/dL (9-16); Calcium 8.8 mg/dL (8.4-10.2); Carbon Dioxide 21 mmol/L (22-29); Chloride 108 mmol/L (96-108); Creatinine Clr Calc Pharmacy 49.7; Estimated Glomerular Filt Rate > 60; Ethanol 152 mg/dL; Glucose Random 107 mg/dL (60-115); Potassium 3.9 mmol/L (3.3-5.1); Sodium 140 mmol/L (135-145); Total Protein 8.1 g/dL (6.5-8.0)
--- OUTSIDE RECORDS SUMMARY | 2024-10-29 20:55 | XMS_ITS | Continuity of Care Document ---
Author Name [facility] Organization [facility] Care Team Providers Care Criminal Psychologist Name Role Phone [facility] Unavailable Unavailable Problems Combined list of problems from Department of Defense and Veterans Affairs facilities. It does not include entries that were removed or entered in error. Problem Status Onset Date Problem Type Date of Resolution Comments Source Essential hypertension (SNOMED CT 57055519) Active Condition [facility] Gout Active Condition [facility] Hypercholesterolemia (SNOMED CT 46447483) Active Condition [facility] Impaired fasting glucose Active Condition [facility] Low back pain (SNOMED CT 186530688) Active Condition [facility] Pain due to neoplastic disease Active Condition Sep 30, 2017 Entered By: OMID MUNOZ ED JAWSAVI Comment: head and neck cancer with metastasis [facility] Pain in right hip joint (SNOMED CT 845495273234989) Active Condition Nov 20 1 Entered By: OMID MUNOZ ED JAWSAVI Comment: was seen by [id number] 2000 Entered By: OMID MUNOZ ED JAWSAVI Comment: on nsaids [facility] Pancytopenia Active Condition [facility] 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, 2017 Entered By: OMID MUNOZ ED JAWSAVI Comment: stage IV metastatic started with base of the tongueJul 05, 2022 Entered By: OMID MUNOZ ED JAWSAVI Comment: Recent fine-needle aspiration lymph node positive for malignancy [facility] Psoriasis Active Condition [facility] Venous insufficiency of leg Active Condition Sep 30, 2017 Entered By: OMID MUNOZ ED JAWSAVI Comment: using compression stockings [facility] Venous thrombosis Active Condition 2017 Entered By: OMID MUNOZ ED JAWED Comment: right arm patient is on enoxaparin [facility] habit of holding cigar in mouth Inactive Condition 05/27/2006 [facility] Alcoholism * (ICD-9-CM 303.90/303.91) Inactive Condition 09/30/2017 [facility] Cellulitis * (ICD-9-CM 682.9) Inactive Condition 12/01/2007 [facility] Hypercholesterolemia Inactive Condition 06/19/2017 [facility] Hypercholesterolemia * (ICD-9-CM 272.0) Inactive Condition 08/01/2010 [facility] Non-cardiac chest pain Inactive Condition 09/30/2017 [facility] Obesity * (ICD-9-CM 278.00) Inactive Condition 09/30/2017 [facility] Osteoarthrosis involving the knee Inactive Condition 09/30/2017 Mar 24, 2 003 Entered By: OMID MUNOZ ED JAWED Comment: both knee,both hips and also lower back [facility] Overweight Inactive Condition 08/23/2011 [facility] Screening for Alcoholism Inactive Condition 09/30/2017 [facility] Screening for Malignant Neoplasms of colon Inactive Condition 05/27/2006 Jul 18, 2005 Entered By: COURT BURRELL Comment: about 1999, normal. 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 Medication Details Route Status Patient Instructions Prescription Expires Prescription Number Last Dispense Date Ordering Provider Order Date Order Qty Source ACETAMINOPH EN 325MG TAB TAKE TWO TABLETS BY MOUTH EVERY 6 HOURS NEEDED FOR PAIN ORAL ACTIVE 06/09/2025 [id number] FURCOLO,T CHRISTIAN 2023 200 [facility] ACETAMINOPH EN 325MG TAB TAKE TWO TABLETS BY MOUTH EVERY 6 HOURS NEEDED FOR PAIN ORAL DISCONT INUED 03/20/2024 [id number] STEPHEN MUNOZ JAWSAVI 2022 200 [facility] CHOLECALCIF NANDINI 25MCG (1,000UNIT) TAB TAKE ONE TABLET BY MOUTH ONCE DAILY ORAL ACTIVE 06/09/2025 [id number] FURCOLO,T CHRISTIAN 2023 90 [facility] CHOLECALCIF NANDINI 25MCG (1,000UNIT) TAB TAKE ONE TABLET BY MOUTH ONCE DAILY ORAL DISCONT INUED 03/20/2024 [id number] STEPHEN MUNOZ JAWSAVI 2022 90 [facility] CLOBETASOL PROPIONATE 0.05% CREAM,TOP APPLY A MODERATE AMOUNT TOPICALL Y TWICE DAILY FOR ITCHING/ RASH TOPICA L ACTIVE 06/09/2025 [id number] FURCOLO,T CHRISTIAN 2023 120 [facility] CLOBETASOL PROPIONATE 0.05% CREAM,TOP APPLY A MODERATE AMOUNT TOPICALL Y TWICE DAILY FOR ITCHING/ RASH TOPICA L DISCONT INUED 03/20/2024 [id number] 4 STEPHEN MUNOZ JAWED 2022 120 [facility] CYANOCOBALA MIN 500MCG TAB TAKE TWO TABLETS BY MOUTH ONCE DAILY (VITAMIN B12) ORAL ACTIVE 06/09/2025 [id number] 4 FURCOLO,T CHRISTIAN 2023 200 [facility] CYANOCOBALA MIN 500MCG TAB TAKE TWO TABLETS BY MOUTH ONCE DAILY (VITAMIN B12) ORAL DISCONT INUED 03/20/2024 [id number] STEPHEN MUNOZ JAWED 2022 200 [facility] SIMVASTATIN 20MG TAB TAKE ONE-HALF TABLET BY MOUTH EVERY DAY ORAL ACTIVE 06/09/2025 [id number] 4 FURCOLO,T CHRISTIAN 2023 45 [facility] SIMVASTATIN 20MG TAB TAKE ONE-HALF TABLET BY MOUTH EVERY DAY ORAL DISCONT INUED 03/20/2024 [id number] [facility] J[facility] 2022 45 [facility] Immunizations Combined list of available immunizations from the Department of Defense and Veterans Affairs facilities. Immunization Series Date Given Administered By Site Reaction Lot Number CVX Code Drug Radiation Oncologist Status Comments Source COVID-19 (MODERNA), MRNA, LNP-S, PF, 50 MCG/0.5 ML (AGES 12+ YEARS) 5 2023 TIERRA FREITAS LEFT DELTO ID [id number] 312 complet ed [facility] INFLUENZA, HIGH-DOSE, QUADRIVALENT 2023 TIERRA FREITAS LEFT DELTO ID [id number] 197 complet ed [facility] COVID-19 (MODERNA), MRNA, LNP-S, BIVALENT BOOSTER, PF, 50 MCG/0.5 ML OR 25MCG/0.25 ML DOSE 4 2022 SHERIDAN WYNNE LEFT DELTO ID [id number] 229 complet ed [facility] COVID-19 (MODERNA), MRNA, LNP-S, PF, 100 MCG OR 50 MCG DOSE 3 2020 207 complet ed MOD; [id number]; 2 [facility] INFLUENZA VACCINE, QUADRIVALENT, ADJUVANTED 2020 205 complet ed [facility] TDAP 2020 115 complet ed [facility] COVID-19 (MODERNA), MRNA, LNP-S, PF, 100 MCG/0.5 ML DOSE 2 2020 207 complet ed MOD; [id number]; 1 [facility] COVID-19 (MODERNA), MRNA, LNP-S, PF, 100 MCG/0.5 ML DOSE 1 2020 207 complet ed MOD; [id number]; 1 [facility] INFLUENZA, INJECTABLE, QUADRIVALENT, PRESERVATIVE FREE 2018 150 complet ed Site: Left Deltoid [facility] INFLUENZA, SEASONAL, INJECTABLE 2017 141 complet ed [facility] INFLUENZA, SEASONAL, INJECTABLE 2016 141 complet ed [facility] FLU,3 YRS (HISTORICAL) 2015 88 complet ed Site: Left Deltoid [facility] FLU,3 YRS (HISTORICAL) 2015 88 complet ed Site: Left Deltoid [facility] PNEUMOCOCCAL CONJUGATE PCV 13 2014 133 complet ed [facility] FLU,3 YRS (HISTORICAL) 2013 88 complet ed Site: Right Deltoid [facility] FLU,3 YRS (HISTORICAL) 2012 TIAGO MUNOZ 88 complet ed [facility] FLU,3 YRS (HISTORICAL) 2011 88 complet ed Site: Left Deltoid [facility] FLU,3 YRS (HISTORICAL) 2010 88 complet ed Site: Left Deltoid [facility] TD(ADULT) UNSPECIFIED FORMULATION 2010 139 complet ed Site: Left Deltoid [facility] TD(ADULT) UNSPECIFIED FORMULATION 2010 139 complet ed [facility] FLU,3 YRS (HISTORICAL) 2009 88 complet ed Site: Left Deltoid [facility] PNEUMOCOCCAL, UNSPECIFIED FORMULATION 2009 109 complet ed Site: Right Deltoid [facility] FLU,3 YRS (HISTORICAL) 2009 88 complet ed Site: Right Deltoid [facility] NOVEL INFLUENZA-H1N 1-09, ALL FORMULATIONS 2009 128 complet ed [employer] [facility] FLU,3 YRS (HISTORICAL) 2007 88 complet ed Site: Left Deltoid [facility] Vital Signs Combined list of inpatient and outpatient Vital Signs from Department of Defense and Veterans Affairs, ranging from 12 months to all on record, depending upon the facility. Vital Sign Value Date Comments Source SYSTOLIC BLOOD PRESSURE 175 03/18/20 24 08:20:31 [facility] DIASTOLIC BLOOD PRESSURE 62 024 08:20:31 [facility] PULSE OXIMETRY 96 03/18/2024 08:20:31 [facility] WEIGHT 181 03/18/2024 08:20:31 [facility] BMI 28 kg/m2 03/18/2024 08:20:31 [facility] PAIN 8 03/18/2024 08:20:31 [facility] HEIGHT 68 03/18/2024 08:20:31 [facility] TEMPERATURE 98.3 03/18/2024 08:20:31 [facility] PULSE 52 03/18/2024 08:20:31 [facility] RESPIRATION 20 03/18/2024 08:20:31 [facility] Encounters Combined list of: 1) Encounters from Department of Veterans Affairs facilities going backup to the last 18 months, not all VA inpatient encounters are included; 2) Encounters from the Department of Defense facilities going backup to 280 months. Location Location Details Encounter Type Encounter Number Reason For Visit Attending Provider ADM Date DC Date Status Disposition Source [facility] Outpatient Encounter [id number] 04/30 [facility] Out[facility]counter [id number] 06/18 [facility] Out[facility]counter [id number] 06/23 [facility] Out[facility] Encounter [id number] 07/23 [facility] Out[facility]counter [id number] 09/10 [facility] Out[facility] Encounter [id number] 09/12 [facility] OFFICE O/P EST MOD 30 MIN [id number] Diagnos is: ICD-10- CM C13.9 Maligna nt neoplas m of hypopha rynx, unspeci fied ELAINE MUNOZ MMED JAWED 09/18 [facility] Outpatient Encounter [id number] 10/28 [facility] OFFICE O/P EST HI 40 MIN [id number] Diagnos is: ICD-10- CM G89.3 Neoplas m related pain (acute) (chroni c) FURCOLO,TI NA 03/18 [facility] Outpatient Encounter [id number] 06/07 [facility] Outpatient Encounter [id number] 06/22 [facility] Out[facility] Encounter [id number] 06/22 [facility] Outpatient Encounter [id number] 10/21 [facility] Social History Combined list of available smoking, tobacco, and other social history from Department of Defense and Veterans Affairs facilities. Social History Type Response Date Comment Source Tobacco smoking status [facility] VA-TOBACCO FORMER USER 03/18/2024 [facility] History of tobacco use VA-TOBACCO QUIT 15 YRS OR MORE 03/18/2024 [facility] History of tobacco use VA-TOBACCO FORMER USER 03/20/2023 [facility] History of tobacco use VA-TOBACCO FORMER USER 05/28/2021 [facility] History of tobacco use VA-TOBACCO FORMER USER 05/20/2019 [facility] [place] [facility] History of tobacco use QUIT TOBACCO USE 1-7 YEARS AGO 01/12/2018 [facility] [place] [facility] History of tobacco use QUIT TOBACCO USE > 7 YEARS AGO 03/15/2017 [facility] [place] [facility] History of tobacco use CURRENT SMOKER 10/09/2015 cigars [facility] History of tobacco use QUIT TOBACCO USE > 7 YEARS AGO 03/31/2008 [facility] History of tobacco use V1-PT DECLINES TOBACCO CESSATION MEDS 12/01/2007 [facility] History of tobacco use QUIT TOBACCO USE 1-7 YEARS AGO 01/13/2007 5 or 6 [facility] History of tobacco use CURRENT SMOKER 05/27/2006 1 cigar per day [facility] History of tobacco use QUIT TOBACCO USE IN PAST YEAR 06/04/2005 1 yr ago [facility] History of tobacco use HISTORY OF SMOKING 10/10/2004 4 yrs ago [facility] [place] [facility] History of tobacco use CURRENT SMOKER 07/22/2003 smokes 5 small cigars daily [facility] History of tobacco use HISTORY OF SMOKING 05/28/2002 quit 1975 [facility] [place] [place] [facility] History of tobacco use QUIT TOBACCO USE IN PAST YEAR 02/18/2002 [facility] History of tobacco use CURRENT SMOKER 05/19/2001 chews cigars, does not smoke them but reports he shakes when he doesn''t chew on stogies. [facility] [place] [facility]
[2024-10-29 21:01] LABS: Troponin-I High Sensitivity 10.8 ng/L (<3.5-35.0)
--- NOTE | 2024-10-29 21:07 | ED_ITS ---
HPI - Fall General Chief Complaint: Fall Stated Complaint: r leg numbness, fall, ?stroke alert Time Seen by Provider: 10/29/24 19:36 History of Present Illness ED Provider: HPI Narrative: Patient with history of alcohol abuse throat cancer right upper extremity DVT, osteoarthritis comes here while walking right knee gave out and patient fell in his driveway, no loss of consciousness patient tried to get up holding the tire of car got superficial abrasion to the right hand Related Data Home Medications ?Medication ?Instructions ?Recorded ?Confirmed apixaban 2.5 mg tablet (Eliquis) 1 tab PO BID 10/14/21 10/14/21 cyanocobalamin (vitamin B-12) 1,000 mcg PO DAILY 10/14/21 10/14/21 1,000 mcg tablet hydroxyzine HCl 10 mg tablet 10 mg PO QID 10/14/21 10/14/21 riboflavin (vitamin B2) 100 mg 100 mg PO DAILY 10/14/21 10/14/21 tablet tramadol 50 mg tablet 50 mg PO TID PRN Pain 10/14/21 10/14/21 Previous Rx's ?Medication ?Instructions ?Recorded daptomycin 500 mg intravenous 500 mg IV Q24H #22 ea 10/22/21 solution oxycodone 5 mg tablet 5 mg PO BID PRN pain (scale score 10/23/21 7-10) #20 tabs walker (Ultra-Light Rollator misc) #1 ea 10/23/21 Allergies Allergy/AdvReac Type Severity Reaction Status Date / Time No Known Allergies Allergy Verified 10/29/24 20:15 [No Known Allergies*] Review of Systems 2 Review of Systems: Yes all other systems are reviewed and are negative [facility] Past Medical History Medical History Staphylococcus aureus bacteremia Osteoarthritis of right hip Deep vein thrombosis, upper right extremity Throat cancer Family History Family History Father CAD (coronary artery disease) Mother CAD (coronary artery disease) Social History Social History Household Members: Significant Other Housing: Apartment Do you presently have visiting nurse or other home services: No Alcohol intake: current Alcohol type: hard liquor Comment: pt refuses bed alarm Patient Tobacco Use Status: Former Tobacco user Smoked in Last 30 Days: Yes Use of substances other than those prescribed or required for medical reasons: No Advance Directives: No Advance Directives Information Provided: Yes service: Yes Current occupational status: disabled Physical Exam 2 Vital Signs: Vital Signs: Last Vital Signs Temp 97.7 F 10/29/24 23:05 Pulse 65 10/29/24 23:05 Resp 16 10/29/24 23:05 BP 150/67 H 10/29/24 23:05 Pulse Ox 97 10/29/24 23:05 O2 Del Method Room Air 10/29/24 23:05 BMI result Body Mass Index 25.9 Appearance: Alert. Oriented X3. No acute distress. Eyes: PERRLA, No Nystagmus ENT: Pharynx normal. Oral Mucosa moist Neck: Normal inspection. Neck supple. Soft tissue mass on the right side of the throat CVS: Normal heart rate and rhythm. Pulses normal. Respiratory: No respiratory distress. Equal air entry bilateral, no wheezing/rales/rhonchi Abdomen: Soft and nontender. Bowel sounds are present, no mass palpable, no CVA tenderness Skin: Skin warm and dry. Normal skin color. Normal skin turgor. Extremities: No lower extremity edema. No calf tenderness superficial abrasion left palm Neuro: Oriented X 3. No motor deficit. No sensory deficit.No cerebellar signs , cranial nerves II-XII intact Medical Decision Making Medical Decision Making [facility] Narrative: Patient with alcohol intoxication came for after the fall when his right likely give out CT scan of the head and C-spine negative for acute urinary very not to drink patient ambulatory in the ED Differential Diagnosis Differential Diagnoses: The differential diagnosis associated with the presentation includes CVA/intoxication/muscular weeakness Lab Data [facility] Lab Attestation statement: I reviewed the patient's lab results. 10/29/24 20:32 10/29/24 20:32 Labs: Lab Results 10/29/24 Range/Units 20:32 WBC 5.7 (4.8-10.8) X10*3/uL RBC 3.73 L D (4.60-5.80) X10*6/uL Hgb 12.7 L D (14.0-18.0) g/dl Hct 37.5 L D (42.0-52.0) % MCV 100.5 H (80.0-98.0) fL MCH 34.0 H (27.0-33.0) pg MCHC 33.9 (31.0-36.0) g/dl RDW 13.0 (11.0-16.0) % Plt Count 114 L D (160-400) X10*3/uL MPV 9.0 L (9.4-12.4) fL Immature Gran % (Auto) 0.4 (0.0-0.4) % Neut % (Auto) 73.3 H (45-73) % Lymph % (Auto) 14.0 L (20-40) % [place] % (Auto) 11.0 (2-11) % Eos % (Auto) 0.9 (0-4) % Baso % (Auto) 0.4 (0-2) % Lymph # (Auto) 0.8 L (1.2-4.9) X10*3/uL [place] # (Auto) 0.6 (0.1-1.2) X10*3/uL Eos # (Auto) 0.1 (0.0-0.4) X10*3/uL Baso # (Auto) 0.0 (0.0-0.2) X10*3/uL Abs Immat Gran (auto) 0.02 (0.00-0.03) X10*3/uL Absolute Neuts (auto) 4.2 (2.0-8.3) x10*3/uL Absolute Nucleated RBC 0.000 (0.0-0.012) X10*3/uL Nucleated RBC % (auto) 0.0 (0.0-0.2) /100WBC PT 10.4 L (10.9-12.4) SEC INR 0.9 (0.9-1.1) Sodium 140 (135-145) mmol/L Potassium 3.9 (3.3-5.1) mmol/L Chloride 108 (96-108) mmol/L Carbon Dioxide 21 L (22-29) mmol/L Anion Gap 15 (12-20) BUN 23 H (9-16) mg/dL Creatinine 1.10 (0.5-1.4) mg/dL Estim Creat Clear Calc 49.7 Estimated GFR > 60 Random Glucose 107 (60-115) mg/dL Calcium 8.8 (8.4-10.2) mg/dL Magnesium 2.0 (1.6-2.6) mg/dL Total Bilirubin 0.3 (0.0-1.0) mg/dL AST 26 (5-37) U/L ALT 14 (0-40) U/L Alkaline Phosphatase 66 (39-117) U/L Troponin I High Sens 10.8 (<3.5-35.0) ng/L Total Protein 8.1 H (6.5-8.0) g/dL Albumin 3.6 (3.5-5.0) g/dL Urine Opiates Screen Not Detected (Not Detect) Ur Buprenorphine Scrn Not Detected (Not Detect) ng/mL Ur Oxycodone Screen Not Detected (Not Detect) ng/mL Urine Methadone Screen Not Detected (Not Detect) ng/mL Urine Fentanyl Screen Not Detected (Not Detect) Ur Barbiturates Screen Not Detected (Not Detect) Ur Phencyclidine Scrn Not Detected (Not Detect) Ur Amphetamines Screen Not Detected (Not Detect) U Benzodiazepines Scrn Not Detected (Not Detect) Urine Cocaine Screen Not Detected (Not Detect) U Marijuana (THC) Screen Not Detected (Not Detect) Ethyl Alcohol 152 mg/dL Discharge Plan Discharge Clinical Impression: Fall, Alcohol intoxication Patient Disposition: Home, Self-Care Instructions: Abuse of Alcohol (ED), Fall Prevention (ED) Additional Instructions: Do not drink alcohol Care and cautions as advised Prescriptions: No Action hydroxyzine HCl 10 mg tablet 10 mg PO QID Eliquis 2.5 mg tablet 1 tab PO BID riboflavin (vitamin B2) 100 mg Tablet 100 mg PO DAILY cyanocobalamin (vitamin B-12) 1,000 mcg Tablet 1,000 mcg PO DAILY tramadol 50 mg Tablet 50 mg PO TID PRN (Reason: Pain) daptomycin 500 mg recon soln 500 mg IV Q24H Qty: 22 0RF Rx Instructions: administer over 30 mins (DME) Ultra-Light Rollator Misc See Rx Instructions .Route Qty: 1 0RF Rx Instructions: As directed oxycodone 5 mg tablet 5 mg PO BID MDD 15 mg PRN (Reason: pain (scale score 7-10)) Qty: 20 0RF Interventions: ED Discharge Assessment Last Done: 10/29/24 23:05 Print Language: Uruguayan
== END 2024-10-30 00:55 | disposition home or self-care (01) ==
PROVIDERS: Emergency Provider Internal Medicine
DX: F10.129 Alcohol abuse with intoxication, unspecified (principal); Y90.6 Blood alcohol level of 120-199 mg/100 ml; C14.0 Malignant neoplasm of pharynx, unspecified; S00.03XA Contusion of scalp, initial encounter; S60.512A Abrasion of left hand, initial encounter; R20.0 Anesthesia of skin; W18.39XA Other fall on same level, initial encounter; Y93.01 Activity, walking, marching and hiking; Y92.038 Other place in apartment as the place of occurrence of the external cause; Y99.8 Other external cause status; Z86.718 Personal history of other venous thrombosis and embolism
CPT/HCPCS: 36415; 70450; 72125; 80053; 80307; 83735; 84484; 85025; 85610; 93005; 99284; 99285

== ENCOUNTER → 2024-10-29 19:38 | Outpatient (BNV) | payer OTHER, MEDICAID, SELFPAY | PROVIDERS: Emergency Provider Internal Medicine; Visit Provider Radiology Neuroradiology | DX: R20.2 Paresthesia of skin (principal); F10.929 Alcohol use, unspecified with intoxication, unspecified | CPT/HCPCS: 70450; 72125 ==

== ENCOUNTER → 2024-10-29 19:48 | Outpatient (BNV) | payer OTHER, MEDICAID, SELFPAY | PROVIDERS: Emergency Provider Internal Medicine; Visit Provider Internal Medicine | DX: I49.1 Atrial premature depolarization (principal) | CPT/HCPCS: 93010 ==

== ENCOUNTER 2024-12-22 02:21 | Emergency (ER) | payer OTHER, MEDICAID, SELFPAY ==
--- NOTE | ~2024-12-22 | CT_ITS ---
CLINICAL HISTORY: Large tumor, bleeding CT soft tissue neck with contrast Comparison: CT/SR - CT CERVICAL SPINE WO IV CON - 10/29/24 19:37 EST Findings: The visualized intracranial contents are unremarkable. There is a large heterogeneously enhancing mass within the soft tissues of the right neck measuring 6.8 x 5.5 x 6.5 cm. The mass appears to invade the skin surface as well as the inferior aspect of the right parotid gland. Medially there is extension into the carotid space with near circumferential encasement of the internal and external carotid seen on image 196 of series 3. The mass also appears to extend into the right lateral parapharyngeal space at the level of the epiglottis. Oval enhancing mass in the supraclavicular region on the right is likely vascular. No other enlarged lymph nodes. No suspicious thyroid nodules. No consolidation at the lung apices. Cervical spine demonstrates multilevel disc height loss with reactive endplate changes. No acute fracture or destructive osseous lesion appreciated. IMPRESSION: Large heterogeneously enhancing mass within the right neck soft tissues invading the skin surface. Findings could represent a primary malignancy such as a salivary gland tumor or conglomerate mario adenopathy (or both). The mass encases the internal and external carotid artery on the right and extends into the parapharyngeal soft tissues. This document has been electronically signed by: Fela Kramer MD on 12/22/2024 06:16:29
[2024-12-22 02:30] VITALS: BP 150/70; BP 195/67; PULSE 38; PULSE 46; RESP 14; TEMP 36.6; O2SAT 100; O2SAT 99; BMI 26.6
--- NOTE | 2024-12-22 02:56 | ECG_ITS ---
Test Reason : BRADYCARDIA Blood Pressure : */* mmHG Vent. Rate : 35 BPM Atrial Rate : 35 BPM P-R Int : 276 ms QRS Dur : 90 ms QT Int : 500 ms P-R-T Axes : 83 -38 34 degrees QTcB Int : 381 ms Normal sinus rhythm with 2:1 second degree AV block Left axis deviation Abnormal ECG When compared with ECG of 29-Oct-2024 19:48, Second degree AV block is evident Referred By: Generic ED Physician Electronically Signed By: CHIRAG MOTA MD
[2024-12-22 03:15] LABS: Basophils Percent Auto 0.3 % (0-2); Eosinophils Absolute Auto 0.1 X10*3/uL (0.0-0.4); Eosinophils Percent Auto 0.9 % (0-4); Hematocrit 29.4 % (42.0-52.0); Hemoglobin 9.9 g/dl (14.0-18.0); Imm Gran Abs Auto 0.02 X10*3/uL (0.00-0.03); Imm Gran Pct Auto 0.3 % (0.0-0.4); Lymphocytes Absolute Auto 0.7 X10*3/uL (1.2-4.9); Lymphocytes Percent Auto 10.4 % (20-40); MANUAL DIFF FLAG NO; Mean Corpuscular HGB Conc 33.7 g/dl (31.0-36.0); Mean Corpuscular Hemoglobin 33.9 pg (27.0-33.0); Mean Corpuscular Volume 100.7 fL (80.0-98.0); Mean Platelet Volume 9.6 fL (9.4-12.4); Monocytes Absolute Auto 0.7 X10*3/uL (0.1-1.2); Monocytes Percent Auto 10.4 % (2-11); Neutrophils Absolute Auto 4.9 x10*3/uL (2.0-8.3); Neutrophils Percent Auto 77.7 % (45-73); Platelet Count 89 X10*3/uL (160-400); Red Blood Count 2.92 X10*6/uL (4.60-5.80); Red Cell Distribution Width 13.3 % (11.0-16.0); White Blood Count 6.4 X10*3/uL (4.8-10.8)
[2024-12-22 03:40] LABS: Troponin-I High Sensitivity 7.9 ng/L (<3.5-35.0)
[2024-12-22 03:44] LABS: Alanine Aminotransferase 9 U/L (0-40); Albumin Level 2.9 g/dL (3.5-5.0); Anion Gap 12 (12-20); Aspartate Amino Transferase 34 U/L (5-37); Bilirubin Total 0.3 mg/dL (0.0-1.0); Blood Urea Nitrogen 27 mg/dL (9-16); Carbon Dioxide 19 mmol/L (22-29); Chloride 113 mmol/L (96-108); Estimated Glomerular Filt Rate > 60; Ethanol 12 mg/dL; Glucose Random 103 mg/dL (60-115); Potassium 4.7 mmol/L (3.3-5.1); Sodium 139 mmol/L (135-145); Total Protein 6.6 g/dL (6.5-8.0)
[2024-12-22 03:58] LABS: Alkaline Phosphatase 55 U/L (39-117)
--- NOTE | 2024-12-22 04:19 | ED.GENADULT ---
HPI - General Adult General Chief complaint: General Medical Stated complaint: Abscess lower Jaw & throat Time Seen by Provider: 12/22/24 04:19 History of Present Illness ED Provider: Octaviano HUFFMAN narrative: The patient is an year old male with a history of throat cancer. The patient has previously received treatment for his throat cancer through the [facility] center at [facility]. The patient says that he last received cancer treatment about a year ago. He says that he had a fall out with his care providers and he never wanted to go back. Over the last several months he has developed a large swelling in the right side of his neck. He has not seen anybody about this new development. Tonight there was bleeding from the large swelling and he called an ambulance and was brought to the hospital. Paramedics also note that the patient was bradycardic. The patient denies any fevers. Related Data Home Medications ?Medication ?Instructions ?Recorded ?Confirmed apixaban 2.5 mg tablet (Eliquis) 1 tab PO BID 10/14/21 10/14/21 cyanocobalamin (vitamin B-12) 1,000 mcg PO DAILY 10/14/21 10/14/21 1,000 mcg tablet hydroxyzine HCl 10 mg tablet 10 mg PO QID 10/14/21 10/14/21 riboflavin (vitamin B2) 100 mg 100 mg PO DAILY 10/14/21 10/14/21 tablet tramadol 50 mg tablet 50 mg PO TID PRN Pain 10/14/21 10/14/21 Previous Rx's ?Medication ?Instructions ?Recorded daptomycin 500 mg intravenous 500 mg IV Q24H #22 ea 10/22/21 solution oxycodone 5 mg tablet 5 mg PO BID PRN pain (scale score 10/23/21 7-10) #20 tabs walker (Ultra-Light Rollator misc) #1 ea 10/23/21 cefuroxime axetil 250 mg tablet 250 mg PO BID 7 days #14 tabs 12/22/24 Allergies Allergy/AdvReac Type Severity Reaction Status Date / Time No Known Allergies Allergy Verified 12/22/24 02:35 [No Known Allergies*] Review of Systems Review of Systems: Yes all other systems are reviewed and are negative PMFSH Past Medical History Medical History Staphylococcus aureus bacteremia Osteoarthritis of right hip Deep vein thrombosis, upper right extremity Throat cancer Family History Family History Father CAD (coronary artery disease) Mother CAD (coronary artery disease) Social History Social History Household Members: Significant Other Housing: Apartment Do you presently have visiting nurse or other home services: No Alcohol intake: current Alcohol intake frequency: 0-2 drinks per day Alcohol type: beer Comment: pt refuses bed alarm Patient Tobacco Use Status: Former Tobacco user Smoked in Last 30 Days: Yes Use of substances other than those prescribed or required for medical reasons: No Advance Directives: No Advance Directives Information Provided: Yes Do you have a plan to hurt others: No Plan service: Yes Current occupational status: disabled Physical Exam ED Vital Signs: Vital Signs - 24 hr 12/22/24 02:30 12/22/24 06:16 12/22/24 07:34 Temperature 97.9 F 97.5 F 97.5 F Pulse Rate 46 L 40 L 38 L Respiratory Rate 14 12 12 Blood Pressure 195/67 H 155/34 H 179/42 H Pulse Oximetry 99 99 98 Oxygen Delivery Method Room Air Room Air Room Air 12/22/24 11:11 Temperature 97.1 F Pulse Rate 40 L Respiratory Rate 14 Blood Pressure 186/48 H Pulse Oximetry 100 Oxygen Delivery Method Room Air BMI result Body Mass Index 26.6 Const Other: The patient is a chronically ill-appearing 84-year-old male who was quite unkempt. He has a large fungating mass on the right side of his neck which is excoriated but not actively bleeding. He is not in respiratory distress or obvious discomfort. [facility] Other: The face is symmetrical. Mucous membranes are moist. The posterior pharynx is normal. Eyes General: appearance normal, both eyes and all related structures Neck Other: The patient has a large fungating mass in the right side of his neck which is quite excoriated but not actively bleeding significantly. Resp Effort & Inspection: normal respiratory effort Auscultation: clear to auscultation bilaterally Cardio Rate: bradycardic Rhythm: regular rhythm Heart sounds: S1 normal heart sound present and S2 normal heart sound present GI Other: Abdomen is soft and nontender Skin Other: The patient has an excoriated, fungating mass on the right side of his neck. It is excoriated but not significantly actively bleeding. Otherwise the patient's skin is pale and dry. Neuro Other: The patient is awake and alert. Pupils are round equal, eye movements are intact, I do not appreciate any definite facial asymmetry. The patient speaks with a list but I do not think he has any definite aphasia or dysarthria. He moves his extremities symmetrically. No obvious focal neurological deficit. Extrem Other: No peripheral edema Course Course Course Narrative: no calls from [facility] oncology he is eager to go home has UTI he has no airway issues repeat call sent Reevaluation(s) Reevaluation #1: patient states he will call from home he does not want to be here anymore he states he is fine and can do this from home BRITTANY 12/22/24 155pm Medications Administered Discontinued Medications Generic Name Dose Route Start Last Admin Trade Name Freq PRN Reason Stop Dose Admin Iohexol 75 ml 12/22/24 05:03 12/22/24 05:03 Iohexol 350 Mg/Ml 100 Ml Infus..Btl IV 12/22/24 05:04 75 ml ONCE ONE Administration Medical Decision Making Medical Decision Making [facility] Narrative: The patient is an 84-year-old male who has had what I believe is 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 I was able to obtain records from [facility] where the patient has received previous treatment. It seems the patient received chemotherapy with carbo/paclitaxel/cetuximab from 04/01/2020 through 09/16/2017. Subsequent to that treatment the patient received multiple cycles of pembrolizumab which was described as palliative treatment. I believe the patient received pembrolizumab from September of 2017 through February of 2024. The patient says that he stopped going to [facility] for treatment last year because he became upset with the providers. I believe he has had no treatment for the last 10 months. The patient had bleeding from a very large fungating mass in the right side of his neck tonight and this caused him to call an ambulance. By the time he got here the bleeding had abated. He had also been found to be bradycardic and he seems to have a first-degree AV block. According to records from [facility] the patient has a history of significant bradycardia with his heart rate often in the 30s. 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 My overall impression is that the patient probably does not have any potentially useful treatment options. I v-shaped to [facility] hoping to speak with Dr. Ry Good or whoever is covering. I spoke to an oncology fellow and described the patient's presentation today. They should be getting back to us. I will be signing the patient out to my colleague at change of shift this morning. Lab Data 12/22/24 03:10 12/22/24 03:10 Labs: Lab Results 12/22/24 12/22/24 Range/Units 03:10 04:49 WBC 6.4 (4.8-10.8) X10*3/uL RBC 2.92 L D (4.60-5.80) X10*6/uL Hgb 9.9 L D (14.0-18.0) g/dl Hct 29.4 L D (42.0-52.0) % MCV 100.7 H (80.0-98.0) fL MCH 33.9 H (27.0-33.0) pg MCHC 33.7 (31.0-36.0) g/dl RDW 13.3 (11.0-16.0) % Plt Count 89 L (160-400) X10*3/uL MPV 9.6 (9.4-12.4) fL Immature Gran % (Auto) 0.3 (0.0-0.4) % Neut % (Auto) 77.7 H (45-73) % Lymph % (Auto) 10.4 L (20-40) % [place] % (Auto) 10.4 (2-11) % Eos % (Auto) 0.9 (0-4) % Baso % (Auto) 0.3 (0-2) % Lymph # (Auto) 0.7 L (1.2-4.9) X10*3/uL [place] # (Auto) 0.7 (0.1-1.2) X10*3/uL Eos # (Auto) 0.1 (0.0-0.4) X10*3/uL Baso # (Auto) 0.0 (0.0-0.2) X10*3/uL Abs Immat Gran (auto) 0.02 (0.00-0.03) X10*3/uL Absolute Neuts (auto) 4.9 (2.0-8.3) x10*3/uL Absolute Nucleated RBC 0.000 (0.0-0.012) X10*3/uL Nucleated RBC % (auto) 0.0 (0.0-0.2) /100WBC Sodium 139 (135-145) mmol/L Potassium 4.7 D (3.3-5.1) mmol/L Chloride 113 H (96-108) mmol/L Carbon Dioxide 19 L (22-29) mmol/L Anion Gap 12 (12-20) BUN 27 H (9-16) mg/dL Creatinine 1.06 (0.5-1.4) mg/dL Estim Creat Clear Calc 50.0 Estimated GFR > 60 Random Glucose 103 (60-115) mg/dL Calcium 8.0 L D (8.4-10.2) mg/dL Total Bilirubin 0.3 (0.0-1.0) mg/dL AST 34 (5-37) U/L ALT 9 (0-40) U/L Alkaline Phosphatase 55 (39-117) U/L Troponin I High Sens 7.9 (<3.5-35.0) ng/L Total Protein 6.6 (6.5-8.0) g/dL Albumin 2.9 L (3.5-5.0) g/dL Urine Color Yellow Urine Appearance Turbid Urine pH 7.0 (5.0-9.0) Ur Specific [place] 1.010 (1.005-1.025) Urine Protein 100 (2+) H (Neg-Trace) mg/dL Urine Glucose (UA) Negative (Negative) mg/dL Urine Ketones Negative (Negative) mg/dL Urine Blood Moderate (2+) H (Negative) Urine Nitrite Positive H (Negative) Ur Leukocyte Esterase Large (3+) H (Negative) Urine RBC 0-2 (0-2) /HPF Urine WBC >50 H (0-5) /HPF Ur Squamous Epith Cells 0-2 (0-2) /HPF Urine Bacteria 4+ (None Seen) Hyaline Casts 3-5 (0-2) /LPF Ethyl Alcohol 12 mg/dL Discharge Plan Discharge Clinical Impression: Neck mass, Tongue cancer, Bradycardia, Acute UTI Patient Disposition: Home, Self-Care Instructions: Urinary Tract Infection in Men (ED), Mouth Cancer (DC) Additional Instructions: the mass on your neck is very large and invades near your blood vessels you need to call [facility] as soon as possible [phone] please call today you have an infection in your urine return for worsening pain, fevers, vomiting, unable to breathe or any other concerns. On a cephalosporin?antibiotic, softer bowel movements are to be expected. Call your provider if you move your bowels more than 4 times a day, your bowel movements are almost all liquid, or you get a rash.?? Prescriptions: New cefuroxime axetil 250 mg tablet 250 mg PO BID 7 Days Qty: 14 0RF No Action hydroxyzine HCl 10 mg tablet 10 mg PO QID Eliquis 2.5 mg tablet 1 tab PO BID riboflavin (vitamin B2) 100 mg Tablet 100 mg PO DAILY cyanocobalamin (vitamin B-12) 1,000 mcg Tablet 1,000 mcg PO DAILY tramadol 50 mg Tablet 50 mg PO TID PRN (Reason: Pain) daptomycin 500 mg recon soln 500 mg IV Q24H Qty: 22 0RF Rx Instructions: administer over 30 mins (DME) Ultra-Light Rollator Misc See Rx Instructions .Route Qty: 1 0RF Rx Instructions: As directed oxycodone 5 mg tablet 5 mg PO BID MDD 15 mg PRN (Reason: pain (scale score 7-10)) Qty: 20 0RF Referrals: Sofiya Hill MD [Primary Care Provider] - Jodee Artis MD [Physician] - Ry Good MD [Physician] - Dioni Torres MD [Physician] - Print Language: Samoan
[2024-12-22 04:59] LABS: Appearance Urine Turbid; Color Urine Yellow; Glucose Urine UA Negative (Negative); Leukocyte Esterase Urine Large (3+) (Negative); Nitrite Urine Positive (Negative); UMIC TRIGGER UACC YES; Urine Blood Moderate (2+) (Negative); Urine Ketones Negative (Negative); Urine Protein 100 (2+) mg/dL (Neg-Trace)
[2024-12-22] MEDS: iohexoL 350 MG/ML 100 ML INFUS..BTL 75 ML IV (05:03)
[2024-12-22 05:07] LABS: Bacteria Urine 4+ (None Seen); RBC Urine 0-2 /HPF (0-2); Squamous Epithelial Cell Urine 0-2 /HPF (0-2); UACC Culture Trigger YES; WBC Urine >50 /HPF (0-5)
[2024-12-22 06:16] VITALS: BP 155/34; PULSE 40; RESP 12; TEMP 36.4; O2SAT 99
[2024-12-22 07:34] VITALS: BP 179/42; PULSE 38; RESP 12; TEMP 36.4; O2SAT 98
--- NOTE | 2024-12-22 07:51 | PC.NURSE ---
assumed care of patient at 0700, patient is awake and alert, oriented x3. patient vital signs stable, noted to be bradycardic. resp even and unlabored, patient airway patent, managing own secretions, speech is muffled- patient states this is normal for him. patient has large right sided neck mass, had blue kelechi pad, small amount of serosanguineous. replaced with non stick dressing and 4/4 dressing, now clean and intact. patient denies any pain. call cox within reach.
--- NOTE | 2024-12-22 08:12 | MHC.EDTECH ---
Addendum entered by Kaela Muhammad 12/22/24 08:18: DR IRLANDA CORTES @ [facility] HEM/ONC [phone] Original Note: @ 08:05 CALL RECEIVED FROM [facility] HEM/ONC, DR SMITH ANSWERS THIS CALL
[2024-12-22 11:11] VITALS: BP 186/48; PULSE 40; RESP 14; TEMP 36.2; O2SAT 100
[2024-12-22 14:29] VITALS: BP 202/53; PULSE 46; RESP 16; TEMP 36.1; O2SAT 98
[2024-12-22] MEDS: cefuroxime axetiL 250 MG TABLET PO (14:29)
--- NOTE | 2024-12-22 14:53 | PC.NURSE ---
call to care team to request lyft for the patient per dr joe, awaiting a phone call back from care team
== END 2024-12-22 15:11 | disposition home or self-care (01) ==
PROVIDERS: Emergency Provider Emergency Medicine; PCP Internal Medicine
DX: R22.1 Localized swelling, mass and lump, neck (principal); C79.89 Secondary malignant neoplasm of other specified sites; R00.1 Bradycardia, unspecified; N39.0 Urinary tract infection, site not specified; Z85.21 Personal history of malignant neoplasm of larynx; R53.81 Other malaise; Z79.01 Long term (current) use of anticoagulants; Z79.899 Other long term (current) drug therapy; Z87.891 Personal history of nicotine dependence
CPT/HCPCS: 36415; 70491; 80053; 80307; 81001; 84484; 85025; 87086; 87088; 87186; 93005; 99284; Q9967

== ENCOUNTER → 2024-12-22 02:56 | Outpatient (BNV) | payer OTHER, MEDICAID, SELFPAY | PROVIDERS: Emergency Provider Emergency Medicine; PCP Internal Medicine; Visit Provider Internal Medicine Cardiovascular Disease | DX: I44.1 Atrioventricular block, second degree (principal) | CPT/HCPCS: 93010 ==

== ENCOUNTER → 2024-12-22 04:36 | Outpatient (BNV) | payer OTHER, MEDICAID, SELFPAY | PROVIDERS: Emergency Provider Emergency Medicine; Visit Provider Radiology Diagnostic Radiology | DX: R22.1 Localized swelling, mass and lump, neck (principal) | CPT/HCPCS: 70491 ==